=== PATIENT | female | born 1955 | race Caucasian/White ===

== ENCOUNTER 2016-08-22 08:53 | Day surgery (SDC) | payer MEDICAID, MEDICARE ==
[~2016-08-22 08:53] MED LIST: ALPRAZolam 0.25 MG TAB PO PRN; ASPIRIN 325 MG TAB PO STA; SODIUM CHLORIDE 0.9% 1,000 ML in EMPTY BAG 1 BAG IV ONE
[2016-08-22] MEDS ORDERED: ASPIRIN 81 MG CHEW ONE (09:13)
[2016-08-22] MEDS ORDERED: ASPIRIN 81 MG CHEW PO ONE (09:22)
[2016-08-22] MEDS ORDERED: ALPRAZolam 0.25 MG TAB PO ONE (09:26)
[2016-08-22 10:07] LABS: Basophils # (A) 0.1 k/uL (0-0.2); Basophils % (A) 1 %; CH 31.8; CHCM 32.5; Eosinophils # (A) 0.2 k/uL (0-0.7); Eosinophils % (A) 2 %; HCT 44.1 % (34.0-46.0); HGB 14.4 gm/dL (11.4-16.0); Luc # (Auto) 0.18; Luc % (Auto) 2; Lymphocytes % (A) 20 %; MCH 32.1 pg (25.0-35.0); MCHC 32.7 g/dL (31.0-37.0); MCV 98.3 fL (80.0-100.0); Mean Platelet Volume 7.8; Monocytes # (A) 0.5 k/uL (0-1.0); Monocytes % (A) 4 %; Neutrophils # (A) 7.3 k/uL (1.3-7.7); Neutrophils % (A) 71 %; RBC 4.48 m/uL (3.80-5.40); RDW 12.8 % (11.5-15.5); WBC 10.2 k/uL (3.8-10.6); WBC (Perox) 10.19
[2016-08-22 10:15] LABS: INR 1.1 (<1.1)
[2016-08-22 10:23] LABS: Anion Gap 11 mmol/L; Blood Urea Nitrogen 17 mg/dL (7-17); Calcium 9.8 mg/dL (8.4-10.2); Carbon Dioxide 26 mmol/L (22-30); Chloride 103 mmol/L (98-107); Glucose 107 mg/dL (74-99); Non-African American GFR(MDRD) >60 (>60 ml/min/1.73 sqM); Potassium 5.1 mmol/L (3.5-5.1); Sodium 140 mmol/L (137-145)
[2016-08-22] MEDS ORDERED: IV FLUID CONTINUATION 1,000 ML IV ONE (11:07)
[2016-08-22] MEDS ORDERED: MIDAZOLAM 2 MG/2 ML VIAL IV ONE (11:12)
[2016-08-22] MEDS ORDERED: LIDOCAINE 2% INJ 20 MG/ML SQ ONE (11:14)
[2016-08-22] MEDS: LIDOCAINE 2% INJ 20 MG/ML SQ ONE ×2 (11:16→11:27)
[2016-08-22] MEDS ORDERED: VERAPAMIL SYRINGE (5 MG/10 ML) INTRAARTER ONE (11:17)
[2016-08-22] MEDS ORDERED: HEPARIN SODIUM 1,000 UNIT/ML VIAL IV ONE (11:18)
[2016-08-22] MEDS ORDERED: IODIXANOL 320 MG/ML 100 ML INTRAARTER ONE (11:38)
[2016-08-22] MEDS ORDERED: SODIUM CHLORIDE 0.9% 1,000 ML IV SCH (11:45)
[2016-08-22 13:37] VITALS: RESP 16; TEMP 97.9
[2016-08-22] MEDS ORDERED: HYDROcodone/APAP 7.5-325MG 1 EACH TAB PO PRN (14:27)
[2016-08-22 15:52] VITALS: BMI 30.1
[2016-08-22 17:11] VITALS: BP 126/67; PULSE 74
--- NOTE | 2016-08-23 05:39 | PCN ---
DATE OF PROCEDURE: 08/22/2016 PERIPHERAL ANGIOGRAM PERFORMING PHYSICIAN: Nathan Baum MD, fish stringer assembler. PROCEDURE PERFORMED: 1. An abdominal aortogram. 2. Bilateral lower extremity runoff. INDICATION: This is a very pleasant 60-year-old female patient who was referred to see me by Dr. Tai. She was struggling with critical limb ischemia of the left foot. She was brought today to undergo an abdominal aortogram and bilateral lower extremity runoff. Approach: 1. Right radial artery. 2. Right common femoral artery. COMPLICATIONS: None. LEVEL OF SEDATION: Moderate. PROCEDURE DESCRIPTION: After obtaining an informed consent, the patient was brought to the cardiac lab assistant. Initially, I accessed the right radial artery, and I placed a 5-Tongan sheath in the right radial artery. Subsequently, I gave the patient 2 mg of verapamil IA and 3000 units of heparin IV. I was unable to advance my wire to the ascending aorta, so I aborted the procedure and I accessed the right common femoral artery. I placed a 5-Tongan sheath in the right common femoral artery. Subsequently, I did an abdominal aortogram and bilateral lower extremity runoff using 5-Tongan pigtail catheter which was initially placed at the level of the renal arteries and it was pulled into above the bifurcation of the aorta to right and left common iliac arteries. The procedure was completed without any complication. SELECTIVE PERIPHERAL ANGIOGRAM: The abdominal aorta seems to be calcified with mild disease only. It bifurcates into right and left common iliac arteries. COMMON ILIAC ARTERIES: The right and left common iliac arteries appear to have mild disease only. INTERNAL ILIAC ARTERIES: The right and left internal iliac arteries appear to have mild disease only. THE EXTERNAL ILIAC ARTERIES: The right and left external iliac arteries appear to have mild disease only. COMMON FEMORAL ARTERIES: The right and left common femoral arteries appeared to have mild disease only. PROFUNDA: The right and left profunda appear to have mild disease only. SFA: The right SFA appeared to have mild disease only and the left SFA appeared to have a lesion in the range of 70% in the midportion. POPLITEAL: The right and left popliteal appeared to be angiographically normal. BELOW THE KNEE: There are 3 vessels runoff below the knee bilaterally. CONCLUSION: 1. Mild aortoiliac disease. 2. Severe disease involving the left SFA. POSTPROCEDURE MANAGEMENT: The patient will be scheduled to undergo a SKIDWAY MAN of the left SFA.
--- NOTE | 2016-08-23 05:42 | LTR ---
August 22, 2016 CARLOS HOOKS DPM RE: Dom Polanco Dear Javed: Ms. Dom Polanco underwent a peripheral angiogram and that showed severe disease involving her left SFA. She will be scheduled to undergo an atherectomy and balloon angioplasty of the left SFA. Thank you for allowing me to participate in her care. Sincerely, KIANA LOPEZ MD
--- NOTE | 2016-08-23 16:08 | IR ---
Fluoroscopy HISTORY: Pain 7.3 minutes fluoroscopy time supplied to the referring clinician. 135 intraoperative C-arm images do cument the procedure. See dictated report from cardiology.
== END 2016-08-22 18:40 | disposition home or self-care (01) ==
LOC: CATHCVL 08:53 → 3OBS 11:37 → CATHCVL 18:40
PROVIDERS: ATTEND Internal Medicine Interventional Cardiology
DX: I73.9 Peripheral vascular disease, unspecified (principal); I70.0 Atherosclerosis of aorta
CPT/HCPCS: 36200; 75625; 75716; 80048; 85025; 85610; C1894 ×2; C1769 ×2; J2001; J2250; Q9967; J1644

== ENCOUNTER 2016-09-09 09:30 | Day surgery (SDC) | payer MEDICARE ==
[2016-09-07 13:26] VITALS: BMI 27.9
[~2016-09-09 09:30] MED LIST changes: -ALPRAZolam 0.25 MG TAB PO PRN; +ASPIRIN 325 MG TAB PO SCH; -ASPIRIN 325 MG TAB PO STA; -SODIUM CHLORIDE 0.9% 1,000 ML in EMPTY BAG 1 BAG IV ONE
[2016-09-09] MEDS: ALPRAZolam 0.25 MG TAB PO PRN ×2 (09:56→09:59)
[2016-09-09] MEDS ORDERED: SODIUM CHLORIDE 0.9% 1,000 ML IV ONE (10:00)
[2016-09-09] MEDS: HYDROcodone/APAP 7.5-325MG 1 EACH TAB PO PRN ×3 (11:45→23:11)
[2016-09-09] MEDS ORDERED: MIDAZOLAM 2 MG/2 ML VIAL IVP ONE ×2 (12:03→12:20)
[2016-09-09] MEDS ORDERED: LIDOCAINE 2% INJ 20 MG/ML SQ ONE (12:08)
[2016-09-09] MEDS ORDERED: HEPARIN SODIUM 1,000 UNIT/ML VIAL IV ONE (12:09)
[2016-09-09] MEDS ORDERED: CLOPIDOGREL 75 MG TAB PO ONE (12:12)
[2016-09-09] MEDS: HYDROmorphone 2 MG/ML 1 ML SYRINGE IVP ONE ×2 (12:25→12:31)
[2016-09-09] MEDS: NITROGLYCERIN 1000MCG/10ML SYRINGE INTRAARTER ONE ×3 (12:26→12:36)
[2016-09-09] MEDS ORDERED: NITROGLYCERIN 1000MCG/10ML SYRINGE INTRAARTER ONE (12:26)
[2016-09-09] MEDS ORDERED: niCARdipine Syringe (1,000 mcg/10 mL) INTRACORON ONE (12:37)
[2016-09-09] MEDS ORDERED: IODIXANOL 320 MG/ML 100 ML INTRAARTER ONE (12:51)
[2016-09-09] MEDS ORDERED: SODIUM CHLORIDE 0.9% 1,000 ML IV SCH (13:00)
--- NOTE | 2016-09-09 14:39 | IR ---
EXAMINATION TYPE: IR sea captain femoral popliteal DATE OF EXAM: 09/09/2016 1:06 PM COMPARISON: NONE HISTORY: Peripheral vascular occlusive disease. Fluoroscopy was provided to the referring clinician. See dictated report from cardiology.
[2016-09-09] MEDS: SODIUM CHLORIDE 0.9% 1,000 ML IV SCH ×2 (16:56→17:04)
[2016-09-09] MEDS ORDERED: IBUPROFEN PO SCH (18:00)
[2016-09-09] MEDS ORDERED: HYDROCODONE PO SCH (18:00)
[2016-09-09] MEDS ORDERED: ATORVASTATIN 80 MG TAB PO SCH (21:00)
--- NOTE | 2016-09-09 22:19 | PTCA ---
DATE OF SERVICE: September 09, 2016 PERFORMING PHYSICIAN: Nathan Baum, 1st pressman on web press. PROCEDURE PERFORMED: 1. Selective left [id number] angiogram. 2. Selective left superficial femoral artery angiogram. 3. Selective right common femoral artery angiogram. 4. An atherectomy of the left superficial femoral artery using the TurboHawk device. 5. Successful balloon angioplasty of the left superficial femoral artery using 5.0 x 60-mm drug-coated balloon with a good angiographic result. INDICATION: This is a pleasant, 61-year-old female patient who was experiencing left leg discomfort consistent with claudication and she underwent a peripheral angiogram a few weeks ago and that showed severe left SFA disease. She was brought today to undergo a PORCELAIN ENAMEL REPAIRER of the left SFA. APPROACH: The right common femoral artery. COMPLICATIONS: None. LEVEL OF SEDATION: Moderate with a sedation length of about an hour. PROCEDURE DESCRIPTION: After obtaining informed consent, the patient was brought to the cardiac tin can laborer. The right common femoral artery was cannulated using micropuncture technique. The micropuncture wire passed easily. Then I placed an 11 cm 6 Qatari sheath in the right common femoral artery. After that, anticoagulation was initiated using heparin and the patient was given 8000 units of heparin IV. After that, I did select the left SFA using an 0.035 advantage wire with a 5 Qatari rim catheter. Subsequently, I did exchange my 11 cm 6 Qatari sheath into 55 cm 6 Qatari sheath over the Advantage wire. The tip of the long sheath was positioned in the left common femoral artery. I did selective left ngrli-ist-lfad angiogram and selective left SFA angiogram. After that, I exchanged my 0.035 advantage wire into 0.014 Ironman using an 0.035 CXI catheter. After that, I did multiple runs of directional atherectomy using the TurboHawk device. I was able to extract a significant amount of plaque from the left SFA. After that, I did balloon angioplasty initially using 4.0 x 40 and then I used 5.0 x 60 mm drug-coated balloon which was In. Pact, where the balloon was inflated under 8 atmospheres for 3 minutes. The following angiogram showed an excellent angiographic result without perforation and without dissection with a good flow. After that, I did exchange my 55 cm 6 Qatari sheath into 11 cm 6 Qatari sheath over the advantage wire. I did after that selective right common femoral artery angiogram. The procedure was completed without any complication. By the end of the procedure I was able to feel good posterior tibial pulse. POSTPROCEDURE MANAGEMENT: 1. Dual antiplatelet therapy. 2. Risk factor modification. 3. Follow up with the patient.
[2016-09-10] MEDS: HYDROcodone/APAP 7.5-325MG 1 EACH TAB PO PRN (05:37)
[2016-09-10 06:38] LABS: Basophils # (A) 0.1 k/uL (0-0.2); Basophils % (A) 0 %; CH 31.5; CHCM 32.9; Eosinophils # (A) 0.3 k/uL (0-0.7); Eosinophils % (A) 2 %; HCT 40.9 % (34.0-46.0); HDW 2.39; HGB 13.6 gm/dL (11.4-16.0); Luc # (Auto) 0.11; Luc % (Auto) 1; Lymphocytes % (A) 8 %; MCHC 33.2 g/dL (31.0-37.0); MCV 96.2 fL (80.0-100.0); Mean Platelet Volume 7.4; Monocytes # (A) 0.5 k/uL (0-1.0); Monocytes % (A) 4 %; Neutrophils # (A) 11.4 k/uL (1.3-7.7); Neutrophils % (A) 85 %; RBC 4.25 m/uL (3.80-5.40); RDW 12.7 % (11.5-15.5); WBC 13.4 k/uL (3.8-10.6); WBC (Perox) 14.05
[2016-09-10] MEDS: SODIUM CHLORIDE 0.9% 1,000 ML IV SCH (06:38)
[2016-09-10 06:50] LABS: Anion Gap 8 mmol/L; Blood Urea Nitrogen 15 mg/dL (7-17); Calcium 9.7 mg/dL (8.4-10.2); Carbon Dioxide 26 mmol/L (22-30); Chloride 105 mmol/L (98-107); Glucose 104 mg/dL (74-99); Non-African American GFR(MDRD) >60 (>60 ml/min/1.73 sqM); Potassium 4.6 mmol/L (3.5-5.1); Sodium 139 mmol/L (137-145)
[2016-09-10 08:38] VITALS: BP 125/69; PULSE 71; RESP 18; TEMP 98.1
[2016-09-10] MEDS ORDERED: amLODIPine 10 MG TAB PO SCH (09:00)
[2016-09-10] MEDS ORDERED: ASPIRIN 325 MG TAB PO SCH (09:00)
[2016-09-10] MEDS ORDERED: PROPRANOLOL LA 80 MG CAP.SA.24H PO SCH (09:00)
[2016-09-10] MEDS ORDERED: CLOPIDOGREL 75 MG TAB PO SCH (09:00)
[2016-09-10] MEDS ORDERED: LISINOPRIL 20 MG TAB PO SCH (09:00)
--- NOTE | 2016-09-10 09:08 | P.PN ---
Subjective Principal diagnosis: Arthrectomy and successful balloon angioplasty of the left superficial femoral artery Discharge Note This is a pleasant 61-year-old female who was experiencing left leg discomfort consistent with claudication, she was brought to the hospital by Dr. Mesa, she underwent arthrectomy of the left superficial femoral artery and successful balloon angioplasty of the left superficial femoral artery. Patient was seen and examined this morning, feels well, denies any discomfort, she has been up walking without any difficulty. Blood pressure 124/70 with a heart rate in the 70s. Objective - Vital Signs Vital signs: Vital Signs Temp 98.1 F 09/10/16 08:00 Pulse 71 09/10/16 08:00 Resp 18 09/10/16 08:00 BP 125/69 09/10/16 08:00 Pulse Ox 98 09/10/16 08:00 Intake & Output 09/09/16 09/10/16 09/10/16 18:59 06:59 18:59 Intake Total 500 1056 240 Balance 500 1056 240 Weight 88.45 kg 88.6 kg Intake: IV 500 1056 Sodium Chloride 0.9% 1, 100 1056 000 ml @ 100 mls/hr IV . Q10H TAMIKO Rx#:[id number] Oral 240 Other: # Voids 1 1 1 - Exam PHYSICAL EXAMINATION: HEENT: Head is atraumatic, normocephalic. Pupils equal, round. Neck is supple. There is no elevated jugular venous pressure. HEART EXAMINATION: Heart S1, S2 normal. No murmur or gallop heard. CHEST EXAMINATION: Lungs are clear to auscultation and precussion. No chest wall tenderness is noted on palpation or with deep breathing. ABDOMEN: Soft, nontender. Bowel sounds are heard. No organomegaly noted. Right groin soft, no evidence of any hematoma. EXTREMITIES: 1+ peripheral pulses with no evidence of peripheral edema and no calf tenderness noted. NEUROLOGIC patient is awake, alert and oriented -3. . - Labs CBC & Chem 7: 09/10/16 06:11 09/10/16 06:11 Labs: Abnormal Lab Results - Last 24 Hours (Table) 09/10/16 09/10/16 Range/Units 06:11 06:11 WBC 13.4 H (3.8-10.6) k/uL Neutrophils # 11.4 H (1.3-7.7) k/uL Glucose 104 H (74-99) mg/dL Assessment and Plan Plan: Assessment and plan #1 status post arthrectomy and successful balloon angioplasty of the left superficial femoral artery #2 HTN #3 hyperlipidemia #4 nicotine dependence, patient reports that she quit smoking earlier this month. PLAN Patient may be able to be discharged home today. We will make her a follow-up appointment in the office with Dr. Mesa post discharge. She will be discharged home on aspirin 325 mg daily, 80 mg of Lipitor daily, Plavix 75 mg daily, lisinopril 20 mg daily, propranolol LA 160 mg daily, and Norvasc 10 mg daily. The patient has been advised regarding the importance of nicotine cessation. DNP note has been reviewed, I agree with a documented findings and plan of care. Patient was seen and examined.
== END 2016-09-10 09:49 | disposition home or self-care (01) ==
LOC: CATHCVL 09:30 → 6SEL 15:16 → CATHCVL 09-10 09:49
PROVIDERS: ATTEND Internal Medicine Interventional Cardiology
DX: I77.9 Disorder of arteries and arterioles, unspecified (principal); I99.8 Other disorder of circulatory system; I73.9 Peripheral vascular disease, unspecified; I10 Essential (primary) hypertension; E78.5 Hyperlipidemia, unspecified; R01.1 Cardiac murmur, unspecified; Z82.49 Family history of ischemic heart disease and other diseases of the circulatory system; Z79.82 Long term (current) use of aspirin; Z79.891 Long term (current) use of opiate analgesic; Z79.899 Other long term (current) drug therapy; Z87.891 Personal history of nicotine dependence; Z88.0 Allergy status to penicillin
CPT/HCPCS: 37225; 85347; 80048; 85025; 99152; 99153 ×2; C1769 ×5; C1894 ×2; C1725; C1714; C2623; J2001; J2250; J1170; Q9967; J1644

== ENCOUNTER → 2020-11-06 | Outpatient (CLI) | payer MEDICARE ==
--- NOTE | 2020-11-06 16:47 | CT ---
EXAMINATION TYPE: CT angio thor/abd pel aorta DATE OF EXAM: 11/06/2020 INDICATION: RV compression, rule out mass. COMPARISON: None CT DLP: 1389 mGycm CONTRAST: without and with IV Contrast, patient injected with 100 mL of Isovue 370. TECHNIQUE: Axial images at 5 mm thick sections. Reconstructed images in the coronal plane. Delayed images through the kidneys. 3-D reconstructed images performed on a separate computerized technologi st reviewed through the aorta and iliac vessels. FINDINGS: Pectus excavatum is present. This has mass effect on the right lateral ventricle. The left thoracic cavity is somewhat smaller than on the right. CTA aorta: The aorta tapers normally through its visualized course. There is a three-vessel arch. The left main renal artery appears somewhat small. The right main pulmonary artery appears normal. Elizabeth c axis and superior mesenteric artery take offs appear normal. Iliac vessels are patent. No dissectio ns are evident. CT CHEST: Portion of the thyroid visualized is normal. No suspicious lung nodules or focal infiltrates are present. No enlarged mediastinal or hilar adenopathy is evident. The ascending aorta diameter at the level of the main pulmonary artery is 3.5 cm. The main pulmonary artery diameter at the bifurcation is 2.[address] ABDOMEN: Liver: Normal Spleen: Normal Pancreas: Normal Adrenal glands: The adrenal glands are normal. Gallbladder: Normal Kidneys: No masses are evident. There is a large left hydronephrosis and hydroureter. This extends to the left hemipelvis where there is an obstructing 0.9 x 2.1 cm distal left ureteral stone. Aorta: Vascular calcification is within the aorta. Inferior vena cava: Normal. CT PELVIS: Loops of bowel within the abdomen and pelvis are normal. This study is performed without oral con trast limiting our evaluation. Appendix: Not identified. No dilated tubular structure or inflammatory changes are evident. Urinary bladder: Normal. Genitourinary structures: Uterus is normal. Adnexal regions are clear. Osseous structures: No suspicious lytic or sclerotic lesions. IMPRESSIONS: 1. Obstructing distal left ureteral stone measuring 0.9 x 2.1 cm causing marked hydronephrosis and hy droureter. 2. Thoracic and Abdominal aorta as visualized appears normal. 3. Pectus excavatum. This has mass effect on the right lateral ventricle
== END | disposition home or self-care (01) ==
LOC: RADCTMAIN 14:17
PROVIDERS: ATTEND Internal Medicine Interventional Cardiology
DX: N13.2 Hydronephrosis with renal and ureteral calculous obstruction (principal); Q67.6 Pectus excavatum
CPT/HCPCS: 82565; 84520; 71275; 36415; 74174; Q9967

== ENCOUNTER → 2023-07-19 | Outpatient (CLI) | payer MEDICARE ==
[2023-07-19 17:31] LABS: Basophils # (A) 0.08 X 10*3/uL (0.00-0.10); Basophils % (A) 0.8 %; Eosinophils # (A) 0.26 X 10*3/uL (0.04-0.35); Eosinophils % (A) 2.6 %; HCT 45.3 % (37.2-46.3); HGB 14.6 g/dL (12.0-15.0); Lymphocytes # (A) 1.58 X 10*3/uL (0.90-5.00); Lymphocytes % (A) 15.8 %; MCH 32.4 pg (27.0-32.0); MCHC 32.2 g/dL (32.0-37.0); MCV 100.4 FL (80.0-97.0); Mean Platelet Volume 11.9 FL (9.5-12.2); Monocytes # (A) 0.73 X 10*3/uL (0.20-1.00); Monocytes % (A) 7.3 %; NRBC Per 100 WBC 0 X 10*3/uL (0.00-0.01); Neutrophils # (A) 7.31 X 10*3/uL (1.80-7.70); Neutrophils % (A) 73.3 %; Platelet Count 255 X 10*3/uL (140-440); RBC 4.51 X 10*6/uL (4.10-5.20); RDW 13.6 % (11.5-14.5); WBC 9.98 X 10*3/uL (4.50-10.00)
[2023-07-19 18:20] LABS: ALT 29 U/L (8-44); AST 33 U/L (13-35); Albumin 4.5 g/dL (3.8-4.9); Albumin/Globulin Ratio 1.67 Ratio (1.60-3.17); Alkaline Phosphatase 94 U/L (41-126); BUN/Creat Ratio 13.78 Ratio (12.00-20.00); Blood Urea Nitrogen 12.4 mg/dL (9.0-27.0); Calcium 9.9 mg/dL (8.7-10.3); Carbon Dioxide 26.4 mmol/L (21.6-31.8); Chloride 101 mmol/L (96-109); Globulin 2.7 g/dL (1.6-3.3); Glucose 91 mg/dL (70-110); Potassium 4.3 mmol/L (3.5-5.5); Sodium 139 mmol/L (135-145); T4, Free (Free Thyroxine) 1.35 ng/dL (0.80-1.80); Total Bilirubin 0.5 mg/dL (0.3-1.2); Total Protein 7.2 g/dL (6.2-8.2)
== END | disposition home or self-care (01) ==
LOC: LABWHC1 09:10
PROVIDERS: ATTEND Family Medicine
DX: R63.4 Abnormal weight loss (principal)
CPT/HCPCS: 36415; 80053; 83036; 84439; 84443; 84481; 85025

== ENCOUNTER → 2024-06-07 | Outpatient (CLI) | payer MEDICARE ==
[2024-06-07 20:58] LABS: ALT 27 U/L (8-44); AST 27 U/L (13-35); Albumin 4.5 g/dL (3.8-4.9); Albumin/Globulin Ratio 1.55 Ratio (1.60-3.17); Alkaline Phosphatase 102 U/L (41-126); Amylase 54 U/L (23-121); BUN/Creat Ratio 17.18 Ratio (12.00-20.00); Blood Urea Nitrogen 18.9 mg/dL (9.0-27.0); Calcium 9.6 mg/dL (8.7-10.3); Carbon Dioxide 24.9 mmol/L (21.6-31.8); Chloride 105 mmol/L (96-109); Globulin 2.9 g/dL (1.6-3.3); Glucose 107 mg/dL (70-110); Lipase 42 U/L (14-63); Potassium 4.4 mmol/L (3.5-5.5); Sodium 141 mmol/L (135-145); T4, Free (Free Thyroxine) 1.38 ng/dL (0.80-1.80); Total Bilirubin 0.4 mg/dL (0.3-1.2); Total Protein 7.4 g/dL (6.2-8.2)
[2024-06-07 21:33] LABS: Basophils # (A) 0.12 X 10*3/uL (0.00-0.10); Basophils % (A) 1.2 %; Eosinophils # (A) 0.33 X 10*3/uL (0.04-0.35); Eosinophils % (A) 3.3 %; HCT 42.8 % (37.2-46.3); HGB 13.5 g/dL (12.0-15.0); Lymphocytes # (A) 1.86 X 10*3/uL (0.90-5.00); Lymphocytes % (A) 18.7 %; MCH 32.3 pg (27.0-32.0); MCHC 31.5 g/dL (32.0-37.0); MCV 102.4 FL (80.0-97.0); Mean Platelet Volume 10.9 FL (9.5-12.2); Monocytes # (A) 0.83 X 10*3/uL (0.20-1.00); Monocytes % (A) 8.4 %; NRBC Per 100 WBC 0 X 10*3/uL (0.00-0.01); Neutrophils # (A) 6.77 X 10*3/uL (1.80-7.70); Neutrophils % (A) 68.1 %; Platelet Count 269 X 10*3/uL (140-440); RBC 4.18 X 10*6/uL (4.10-5.20); WBC 9.94 X 10*3/uL (4.50-10.00)
== END | disposition home or self-care (01) ==
LOC: LABWHC1 12:38
PROVIDERS: ATTEND Family Medicine
DX: R63.0 Anorexia (principal); R63.4 Abnormal weight loss
CPT/HCPCS: 36415; 80053; 82150; 83690; 84439; 84443; 85025

== ENCOUNTER 2024-09-16 19:06 | Inpatient (IN) | payer MEDICARE ==
--- NOTE | 2024-09-16 19:44 | ED ---
Weakness HPI - General Chief complaint: Weakness Stated complaint: Weakness Time Seen by Provider: 09/16/24 19:22 Source: patient, EMS, RN notes reviewed Mode of arrival: EMS Limitations: altered mental status - History of Present Illness Initial comments: This is a 69-year-old female with history including hypertension and nephrolithiasis presenting via EMS for weakness x 2 days. Patient states she has had associated chest tightness (3/10), dyspnea, N/V/D, headache and positional dizziness. Endorses use of Aleve with no relief. Patient endorses mother and father having history of AMI but denies personal history. Patient is prescribed Plavix and atorvastatin. Denies fever, chills, diaphoresis, abdominal pain, hematemesis, hematochezia, melena, urinary symptoms. MD Complaint: generalized weakness Onset/Timin -: days(s) Associated Symptoms: chest pain, headaches, nausea/vomiting - Related Data Home Medications Medication Instructions Recorded Confirmed Aspirin 81 mg PO DAILY 08/22/16 09/09/16 HYDROcodone/IBUPROFEN 7.5-200 1 tab PO Q6HR 08/22/16 09/09/16 [Vicoprofen 7.5-200 mg] Propranolol HCl [Inderal LA] 160 mg PO DAILY 08/22/16 09/09/16 amLODIPine BESYLATE/BENAZEPRIL 1 cap PO DAILY 08/22/16 09/09/16 [Lotrel 10-20 MG] Previous Rx's Medication Instructions Recorded Atorvastatin [Lipitor] 80 mg PO HS #30 tab 09/10/16 Clopidogrel [Plavix] 75 mg PO DAILY #30 tab 09/10/16 Allergies Allergy/AdvReac Type Severity Reaction Status Date / Time Penicillins Allergy Dyspnea. Verified 09/07/16 12:57 THROAT SWELLING Review of Systems ROS Statement: Those systems with pertinent positive or pertinent negative responses have been documented in the HPI. ROS Other: All systems not noted in ROS Statement are negative. Past Medical History Past Medical History: Hypertension, Vascular Disorder Additional Past Medical History / Comment(s): CHRONIC MIGRAINES, chronic back pain, hx. fx. knee cap 2014 that affects her gait & back, hx. R kidney stones, hematuria, UTIs, urinary incontinence. History of Any Multi-Drug Resistant Organisms: None Reported Past Surgical History: Cholecystectomy, Orthopedic Surgery, Tonsillectomy Additional Past Surgical History / Comment(s): 12/09/14 Patella tendon repair and removal inferior patellar fragments. ORIF LEFT WRIST, LITHOTRIPSY & NEPHROLITHOTOMY, 2012 stone removal from ureter, recent aortogram Past Anesthesia/Blood Transfusion Reactions: No Reported Reaction Past Psychological History: No Psychological Hx Reported Smoking Status: Current every day smoker Past Alcohol Use History: None Reported Past Drug Use History: Marijuana - Past Family History Mother Family Medical History: Coronary Artery Disease (CAD) General Exam Limitations: altered mental status General appearance: alert, lethargic, in distress Head exam: Present: atraumatic, normocephalic, normal inspection Eye exam: Present: normal appearance, PERRL, EOMI. Absent: scleral icterus, conjunctival injection, periorbital swelling ENT exam: Present: normal exam, mucous membranes moist Neck exam: Present: normal inspection. Absent: tenderness, meningismus, lymphadenopathy Respiratory exam: Present: normal lung sounds bilaterally. Absent: respiratory distress, wheezes, rales, rhonchi, stridor, accessory muscle use, decreased breath sounds, prolonged expiratory Cardiovascular Exam: Present: regular rate, normal rhythm, normal heart sounds. Absent: systolic murmur, diastolic murmur, rubs, gallop, clicks GI/Abdominal exam: Present: soft, normal bowel sounds. Absent: distended, tenderness, guarding, rebound, rigid Extremities exam: Present: normal inspection, full ROM, normal capillary refill. Absent: tenderness, pedal edema, joint swelling, calf tenderness Back exam: Present: normal inspection Neurological exam: Present: alert, oriented X3, CN II-XII intact Psychiatric exam: Present: normal affect, normal mood Skin exam: Present: warm, dry, intact, normal color. Absent: rash Course Vital Signs 09/16/24 09/16/24 19:08 20:21 Temperature 97.2 F L 97.8 F Pulse Rate 84 101 H Respiratory 18 18 Rate Blood Pressure 137/104 131/71 O2 Sat by Pulse 97 99 Oximetry Medical Decision Making - Medical Decision Making Was pt. sent in by a medical professional or institution (, PA, POLYETHYLENE COMBINER, urgent care, hospital, or long term...) When possible be specific @ -No Did you speak to anyone other than the patient for history (EMS, parent, family, police, friend...)? What history was obtained from this source @ -No Did you review nursing and triage notes (agree or disagree)? Why? @ -I reviewed and agree with nursing and triage notes Were old charts reviewed (outside hosp., previous admission, EMS record, old EKG, old radiological studies, urgent care reports/EKG's, long term records)? Report findings @ -No old charts were reviewed Differential Diagnosis (chest pain, altered mental status, abdominal pain women, abdominal pain men, vaginal bleeding, weakness, fever, dyspnea, syncope, headache, dizziness, GI bleed, back pain, seizure, CVA, palpatations, mental health, musculoskeletal)? @ -Differential Chest Pain: Stable Angina, Unstable Angina, STEMI, NSTEMI Aortic Dissection, Pneumothorax, Musculoskeletal, Esophageal Spasm GERD, Cholecystitis, Pancreatitis, Zoster, this is not meant to be an all-inclusive list. Differential Weakness: Hypoglycemia, shock, sepsis, hyponatremia, anemia, infection, UT, ETOH, adverse medicine reaction, overdose, stroke, this is not meant to be an all-inclusive list. EKG interpreted by me (3pts min.). @ -Sinus tachycardia with LAD and right ventricular conduction delay. No ST deviation or T wave inversion. Ventricular rate 101 bpm, RANCHO 118 ms, QRS 89 ms, QTc 441 ms. X-rays interpreted by me (1pt min.). @ -CXR shows small right pleural effusion and COPD changes. CT interpreted by me (1pt min.). @ -Abdomen/pelvic CT shows 1.2 cm obstructing distal left ureteral stone along with several smaller stones within the ureter. Associated moderate left hydronephrosis and hydroureter. Multiple bilateral nonobstructing renal stones also noted. U/S interpreted by me (1pt. min.). @ -None done What testing was considered but not performed or refused? (CT, X-rays, U/S, labs)? Why? @ -None What meds were considered but not given or refused? Why? @ -None Did you discuss the management of the patient with other professionals (professionals i.e. , PA, POLYETHYLENE COMBINER, lab, RT, psych nurse, nursing home social worker, lens polisher, teacher, airfield engineer officer, sample case porter)? Give summary @ -Sound contacted for patient admission for non-STEMI and KELLI along with obstructing ureterolithiasis. Was smoking cessation discussed for >3mins.? @ -No Was critical care preformed (if so, how long)? @ -No Were there social determinants of health that impacted care today? How? (Homelessness, low income, unemployed, alcoholism, drug addiction, transportation, low edu. Level, literacy, decrease access to med. care, [place] [facility], rehab)? @ -No Was there de-escalation of care discussed even if they declined (Discuss DNR or withdrawal of care, Hospice)? DNR status @ -No What co-morbidities impacted this encounter? (DM, HTN, Smoking, COPD, CAD, Cancer, CVA, ARF, Chemo, Hep., AIDS, mental health diagnosis, sleep apnea, morbid obesity)? @ -Hypertension Was patient admitted / discharged? Hospital course, mention meds given and route, prescriptions, significant lab abnormalities, going to OR and other pertinent info. @ -Initial troponin 1.700. Remaining lab work shows leukocytosis 26.6 with left shift. KELLI noted with creatinine going from 1.1 (06/07/2024) to 2.12 today. Hyperglycemia 132, hypercalcemia 11.1, slightly elevated LFTs and total protein. Cepheid test negative. UA is still pending. CXR shows small right pleural effusion and COPD changes. Abdomen/pelvic CT shows 1.2 cm obstructing distal left ureteral stone along with several smaller stones within the ureter. Associated moderate left hydronephrosis and hydroureter. Multiple bilateral nonobstructing renal stones also noted. Patient initially provided IV normal saline and Zofran. After return of results, patient provided IV low intensity heparin, p.o. chewable aspirin and atorvastatin. IV Rocephin also provided. Sound contacted for patient admission for non-STEMI and KELLI along with obstructing ureterolithiasis. Discussed patient with Dr. Allison. Undiagnosed new problem with uncertain prognosis? @ -NSTEMI, KELLI Drug Therapy requiring intensive monitoring for toxicity (Heparin, Nitro, Insulin, Cardizem)? @ -No Were any procedures done? @ -No Diagnosis/symptom? @ -NSTEMI, KELLI, obstructing ureterolithiasis Acute, or Chronic, or Acute on Chronic? @ -Acute Uncomplicated (without systemic symptoms) or Complicated (systemic symptoms)? @ -Complicated Side effects of treatment? @ -No Exacerbation, Progression, or Severe Exacerbation? @ -No Poses a threat to life or bodily function? How? (Chest pain, USA, UT, pneumonia, PE, COPD, DKA, ARF, appy, cholecystitis, CVA, Diverticulitis, Homicidal, Suicidal, threat to staff... and all critical care pts) @ -NSTEMI, KELLI - Lab Data Result diagrams: 09/16/24 19:59 09/16/24 19:59 Lab Results 09/16/24 09/16/24 09/16/24 Range/Units 19:59 19:59 19:59 WBC 26.60 H (4.50-10.00) 10*3/uL RBC 5.71 H (4.10-5.20) 10*6/uL Hgb 18.9 H (12.0-15.0) g/dL Hct 52.9 H (37.2-46.3) % MCV 92.6 (80.0-97.0) fL MCH 33.1 H (27.0-32.0) pg MCHC 35.7 (32.0-37.0) g/dL Plt Count 357 (140-440) 10*3/uL MPV 10.8 (9.5-12.2) fL Immature Gran % (Auto) 0.8 % Neutrophils % 82.8 % Lymphocytes % 9.1 % Monocytes % 7.1 % Eosinophils % 0.0 % Basophils % 0.2 % Immature Gran # 0.20 H (0.00-0.04) 10*3/uL Neutrophils # 22.03 H (1.80-7.70) 10*3/uL Lymphocytes # 2.41 (0.90-5.00) 10*3/uL Monocytes # 1.89 H (0.20-1.00) 10*3/uL Eosinophils # 0.01 L (0.04-0.35) 10*3/uL Basophils # 0.06 (0.00-0.10) 10*3/uL PT 11.9 (10.0-12.5) sec INR 1.1 (<1.2) APTT 22.7 (22.0-30.0) sec Sodium 138 (137-145) mmol/L Potassium 4.0 (3.5-5.1) mmol/L Chloride 98 (98-107) mmol/L Carbon Dioxide 20 L (22-30) mmol/L Anion Gap 20 mmol/L BUN 41 H (7-17) mg/dL Creatinine 2.12 H (0.52-1.04) mg/dL Est GFR (CKD-EPI)AfAm 27 (>60 ml/min/1.73 sqM) Est GFR (CKD-EPI)NonAf 23 (>60 ml/min/1.73 sqM) Glucose 132 H (74-99) mg/dL POC Glucose (mg/dL) (70-110) mg/dL POC Glu Home Health Travel Ot ID Plasma Lactic Acid Renato (0.7-2.0) mmol/L Calcium 11.1 H (8.4-10.2) mg/dL Phosphorus 3.3 (2.5-4.5) mg/dL Magnesium 2.2 (1.6-2.3) mg/dL Total Bilirubin 1.6 H (0.2-1.3) mg/dL AST 75 H (14-36) U/L ALT 40 H (4-34) U/L Alkaline Phosphatase 133 H (38-126) U/L Creatine Kinase (30-135) U/L Troponin I (0.000-0.034) ng/mL Total Protein 8.9 H (6.3-8.2) g/dL Albumin 5.0 (3.5-5.0) g/dL Influenza Type A (PCR) (Not Detectd) Influenza Type B (PCR) (Not Detectd) RSV (PCR) (Not Detectd) SARS-CoV-2 (PCR) (Not Detectd) 09/16/24 09/16/24 09/16/24 Range/Units 19:59 21:12 21:12 WBC (4.50-10.00) 10*3/uL RBC (4.10-5.20) 10*6/uL Hgb (12.0-15.0) g/dL Hct (37.2-46.3) % MCV (80.0-97.0) fL MCH (27.0-32.0) pg MCHC (32.0-37.0) g/dL Plt Count (140-440) 10*3/uL MPV (9.5-12.2) fL Immature Gran % (Auto) % Neutrophils % % Lymphocytes % % Monocytes % % Eosinophils % % Basophils % % Immature Gran # (0.00-0.04) 10*3/uL Neutrophils # (1.80-7.70) 10*3/uL Lymphocytes # (0.90-5.00) 10*3/uL Monocytes # (0.20-1.00) 10*3/uL Eosinophils # (0.04-0.35) 10*3/uL Basophils # (0.00-0.10) 10*3/uL PT (10.0-12.5) sec INR (<1.2) APTT (22.0-30.0) sec Sodium (137-145) mmol/L Potassium (3.5-5.1) mmol/L Chloride (98-107) mmol/L Carbon Dioxide (22-30) mmol/L Anion Gap mmol/L BUN (7-17) mg/dL Creatinine (0.52-1.04) mg/dL Est GFR (CKD-EPI)AfAm (>60 ml/min/1.73 sqM) Est GFR (CKD-EPI)NonAf (>60 ml/min/1.73 sqM) Glucose (74-99) mg/dL POC Glucose (mg/dL) (70-110) mg/dL POC Glu Home Health Travel Ot ID Plasma Lactic Acid Renato 1.3 (0.7-2.0) mmol/L Calcium (8.4-10.2) mg/dL Phosphorus (2.5-4.5) mg/dL Magnesium (1.6-2.3) mg/dL Total Bilirubin (0.2-1.3) mg/dL AST (14-36) U/L ALT (4-34) U/L Alkaline Phosphatase (38-126) U/L Creatine Kinase 62 (30-135) U/L Troponin I 1.700 H* (0.000-0.034) ng/mL Total Protein (6.3-8.2) g/dL Albumin (3.5-5.0) g/dL Influenza Type A (PCR) (Not Detectd) Influenza Type B (PCR) (Not Detectd) RSV (PCR) (Not Detectd) SARS-CoV-2 (PCR) (Not Detectd) 09/16/24 09/16/24 Range/Units 22:31 22:35 WBC (4.50-10.00) 10*3/uL RBC (4.10-5.20) 10*6/uL Hgb (12.0-15.0) g/dL Hct (37.2-46.3) % MCV (80.0-97.0) fL MCH (27.0-32.0) pg MCHC (32.0-37.0) g/dL Plt Count (140-440) 10*3/uL MPV (9.5-12.2) fL Immature Gran % (Auto) % Neutrophils % % Lymphocytes % % Monocytes % % Eosinophils % % Basophils % % Immature Gran # (0.00-0.04) 10*3/uL Neutrophils # (1.80-7.70) 10*3/uL Lymphocytes # (0.90-5.00) 10*3/uL Monocytes # (0.20-1.00) 10*3/uL Eosinophils # (0.04-0.35) 10*3/uL Basophils # (0.00-0.10) 10*3/uL PT (10.0-12.5) sec INR (<1.2) APTT (22.0-30.0) sec Sodium (137-145) mmol/L Potassium (3.5-5.1) mmol/L Chloride (98-107) mmol/L Carbon Dioxide (22-30) mmol/L Anion Gap mmol/L BUN (7-17) mg/dL Creatinine (0.52-1.04) mg/dL Est GFR (CKD-EPI)AfAm (>60 ml/min/1.73 sqM) Est GFR (CKD-EPI)NonAf (>60 ml/min/1.73 sqM) Glucose (74-99) mg/dL POC Glucose (mg/dL) 119 H (70-110) mg/dL POC Glu Home Health Travel Ot ID [place] Plasma Lactic Acid Renato (0.7-2.0) mmol/L Calcium (8.4-10.2) mg/dL Phosphorus (2.5-4.5) mg/dL Magnesium (1.6-2.3) mg/dL Total Bilirubin (0.2-1.3) mg/dL AST (14-36) U/L ALT (4-34) U/L Alkaline Phosphatase (38-126) U/L Creatine Kinase (30-135) U/L Troponin I (0.000-0.034) ng/mL Total Protein (6.3-8.2) g/dL Albumin (3.5-5.0) g/dL Influenza Type A (PCR) Not Detected (Not Detectd) Influenza Type B (PCR) Not Detected (Not Detectd) RSV (PCR) Not Detected (Not Detectd) SARS-CoV-2 (PCR) Not Detected (Not Detectd) Disposition Clinical Impression: NSTEMI (non-ST elevated myocardial infarction), KELLI (acute kidney injury), Ureterolithiasis Disposition: ADMITTED IP TO THIS HOSP Condition: Fair Is patient prescribed a controlled substance at d/c from ED?: No Time of Disposition: 23:00 Decision Date: 09/16/24 Decision Time: 23:00
[2024-09-16 20:14] LABS: Basophils # (A) 0.06 10*3/uL (0.00-0.10); Basophils % (A) 0.2 %; Eosinophils # (A) 0.01 10*3/uL (0.04-0.35); HCT 52.9 % (37.2-46.3); HGB 18.9 g/dL (12.0-15.0); Lymphocytes # (A) 2.41 10*3/uL (0.90-5.00); Lymphocytes % (A) 9.1 %; MCH 33.1 pg (27.0-32.0); MCHC 35.7 g/dL (32.0-37.0); MCV 92.6 fL (80.0-97.0); Mean Platelet Volume 10.8 fL (9.5-12.2); Monocytes # (A) 1.89 10*3/uL (0.20-1.00); Monocytes % (A) 7.1 %; Neutrophils # (A) 22.03 10*3/uL (1.80-7.70); Neutrophils % (A) 82.8 %; Platelet Count 357 10*3/uL (140-440); RBC 5.71 10*6/uL (4.10-5.20); RDW 13.2 % (11.5-14.5)
[2024-09-16] MEDS: SODIUM CHLORIDE 0.9% 1,000 ML IV ONE (20:16)
[2024-09-16] MEDS: ONDANSETRON 4 MG/2 ML VIAL IVP STA (20:17)
[2024-09-16 20:25] LABS: INR 1.1 (<1.2); Partial Thromboplastin Time 22.7 sec (22.0-30.0); Prothrombin Time 11.9 sec (10.0-12.5)
[2024-09-16 20:27] LABS: ALT 40 U/L (4-34); African American GFR (CKD) 27 (>60 ml/min/1.73 sqM); Anion Gap 20 mmol/L; Blood Urea Nitrogen 41 mg/dL (7-17); Calcium 11.1 mg/dL (8.4-10.2); Carbon Dioxide 20 mmol/L (22-30); Chloride 98 mmol/L (98-107); Glucose 132 mg/dL (74-99); Non-African American GFR(CKD) 23 (>60 ml/min/1.73 sqM); Sodium 138 mmol/L (137-145); Total Bilirubin 1.6 mg/dL (0.2-1.3)
[2024-09-16 20:30] LABS: Magnesium 2.2 mg/dL (1.6-2.3); Phosphorus 3.3 mg/dL (2.5-4.5); Total Protein 8.9 g/dL (6.3-8.2)
[2024-09-16 20:31] LABS: AST 75 U/L (14-36); Alkaline Phosphatase 133 U/L (38-126)
[2024-09-16 22:36] LABS: Glucose,Whole Blood 119 mg/dL (70-110)
--- NOTE | 2024-09-16 22:45 | XR ---
EXAMINATION TYPE: XR chest 2V DATE OF EXAM: 09/16/2024 10:09 PM COMPARISON: 12/14/2011 CLINICAL INDICATION: Female, 69 years old with history of Weakness, TECHNIQUE: XR chest 2V view(s) obtained. FINDINGS: The heart size is normal. The pulmonary vasculature is normal. Small right pleural effusion is present.. Hyperinflation with flattening of the diaphragms present c ompatible with COPD IMPRESSION: 1. Small right pleural effusion 2. COPD [facility], Workstation: [facility], 09/16/2024 10:43 PM
--- NOTE | 2024-09-16 22:56 | CT ---
EXAMINATION TYPE: CT abdomen pelvis wo con DATE OF EXAM: 09/16/2024 10:24 PM COMPARISON: None. CLINICAL INDICATION: Female, 69 years old with history of Weakness, abnormal labs, pt bib ems for c/o increased in weakness , confusion cbg 142. x2 and half days TECHNIQUE: Axial images were obtained from above the diaphragm to the pubic rami in the axial plane a t 5 mm thick sections. Reconstructed images are reviewed on the computer in the coronal plane. CONTRAST: mL of . Study performed without Oral Contrast DLP: 354.8 mGycm, Automated exposure control for dose reduction was used. FINDINGS: Limited CT sections are obtained the lung bases. The lung bases are clear. CT ABDOMEN: Liver: Normal Spleen: Normal Pancreas: Normal Adrenal glands: The adrenal glands are normal. Gallbladder: Surgically absent Kidneys: No masses are evident. There is moderately prominent left hydronephrosis and prominent hydro ureter to the distal left hemipelvis. There is an obstructing 1.2 cm calcification within the ureter, additional smaller ureteral stones are present on the left. Multiple bilateral nonobstructing renal stones are present. No cysts are present. Delayed images were obtained through the kidneys, which re main unremarkable. Aorta: Vascular calcification is within the aorta. Inferior vena cava: Normal. CT PELVIS: Loops of bowel within the abdomen and pelvis are normal. This study is without oral contrast limi ting bowel evaluation Appendix: Normal as visualized. Urinary bladder: Normal. Genitourinary structures: Uterus appears normal. Adnexa are normal. Osseous structures: No suspicious lytic or sclerotic lesions. IMPRESSION: 1. 1.2 cm obstructing distal left ureteral stone within the left hemipelvis. Additional smaller ston es are within the ureter. 2. Moderate prominent left hydronephrosis and hydroureter 3. Multiple bilateral nonobstructing renal stones. [facility], Workstation: [facility], 09/16/2024 10:54 PM
[2024-09-16] MEDS: HEPARIN SODIUM 1,000 UN/ML (10ML VL) IV ONE (23:17)
[2024-09-16] MEDS: HEPARIN SOD,PORK IN 0.45% NACL 25,000 UNIT in 0.45% NACL 1 250ML.BAG IV SCH (23:18)
[2024-09-16] MEDS: ASPIRIN 81 MG PO STA (23:19)
[2024-09-16] MEDS ORDERED: ONDANSETRON 4 MG/2 ML VIAL IVP PRN (23:21)
[2024-09-16] MEDS ORDERED: MORPHINE SULFATE 4 MG/ML SYRINGE IV PRN (23:21)
[2024-09-16] MEDS ORDERED: NALOXONE 0.4 MG/ML 1 ML VIAL IV PRN (23:21)
[2024-09-16 23:36] LABS: Influenza A Not Detected (Not Detectd); Influenza B Not Detected (Not Detectd); RSV Not Detected (Not Detectd)
[2024-09-16] MEDS: SODIUM CHLORIDE 0.9% 1,000 ML IV SCH (23:49)
[2024-09-16] MEDS: ATORVASTATIN 80 MG TAB PO STA (23:49)
[2024-09-17] MEDS: IBUPROFEN PO SCH (00:27)
[2024-09-17] MEDS: HYDROCODONE PO SCH (00:27)
--- NOTE | 2024-09-17 00:59 | P.HPIM ---
History of Present Illness H&P Date: 09/16/24 Chief Complaint: Chest pain The patient is a 69-year-old female with history of COPD who presents with chest pain. The patient states the symptoms have been going on for the last 4 days she denies any nausea vomiting she was short of breath the patient felt weak presented to the emergency room where she was found to have an elevated troponin. The patient uses Aleve without relief. The patient had a chest x-ray that showed a small right pleural effusion and COPD changes. The abdomen pelvic CT showed 1.2 cm obstructing distal left ureteral stone with several small st ones. There was moderate left hydronephrosis and hydroureter. The patient was found to have an elevated WBC 26.6. The patient had an elevated BUN of 41 and a creatinine of 2.12. The patient had a hemoglobin of 18.9. The patient had an elevated troponin of 1.7. The patient was hospitalized for further workup and management. Review of Systems Cardiovascular: Reports chest pain Respiratory: Reports dyspnea Past Medical History Past Medical History: Hypertension, Vascular Disorder Additional Past Medical History / Comment(s): CHRONIC MIGRAINES, chronic back pain, hx. fx. knee cap 2014 that affects her gait & back, hx. R kidney stones, hematuria, UTIs, urinary incontinence. History of Any Multi-Drug Resistant Organisms: None Reported Past Surgical History: Cholecystectomy, Orthopedic Surgery, Tonsillectomy Additional Past Surgical History / Comment(s): 12/09/14 Patella tendon repair and removal inferior patellar fragments. ORIF LEFT WRIST, LITHOTRIPSY & NEPHROLITHOTOMY, 2012 stone removal from ureter, recent aortogram Past Anesthesia/Blood Transfusion Reactions: No Reported Reaction Past Psychological History: No Psychological Hx Reported Smoking Status: Current every day smoker Past Alcohol Use History: None Reported Past Drug Use History: Marijuana - Past Family History Mother Family Medical History: Coronary Artery Disease (CAD) Medications and Allergies Home Medications Medication Instructions Recorded Confirmed Type Aspirin 81 mg PO DAILY 08/22/16 09/09/16 History HYDROcodone/IBUPROFEN 7.5-200 1 tab PO Q6HR 08/22/16 09/09/16 History [Vicoprofen 7.5-200 mg] Propranolol HCl [Inderal LA] 160 mg PO DAILY 08/22/16 09/09/16 History amLODIPine BESYLATE/BENAZEPRIL 1 cap PO DAILY 08/22/16 09/09/16 History [Lotrel 10-20 MG] Atorvastatin [Lipitor] 80 mg PO HS #30 tab 09/10/16 Rx Clopidogrel [Plavix] 75 mg PO DAILY #30 tab 09/10/16 Rx Allergies Allergy/AdvReac Type Severity Reaction Status Date / Time Penicillins Allergy Dyspnea. Verified 09/07/16 12:57 THROAT SWELLING Physical Exam Vitals: Vital Signs Temp Pulse Resp BP Pulse Ox 09/16/24 20:21 97.8 F 101 H 18 131/71 99 09/16/24 19:08 97.2 F L 84 18 137/104 97 Intake and Output 09/16/24 09/16/24 09/17/24 14:59 22:59 06:59 Other: Weight 68.039 kg - Constitutional General appearance: cooperative - Respiratory Respiratory: negative: CTA - Cardiovascular Rhythm: regular - Gastrointestinal General gastrointestinal: normal bowel sounds - Neurologic Neurologic: CNII-XII intact - Musculoskeletal Musculoskeletal: strength equal bilaterally - Psychiatric Psychiatric: A&O x's 3, appropriate affect Results CBC & Chem 7: 09/16/24 19:59 09/16/24 19:59 Labs: Abnormal Lab Results - Last 24 Hours (Table) 09/16/24 09/16/24 09/16/24 Range/Units 19:59 19:59 21:12 WBC 26.60 H (4.50-10.00) 10*3/uL RBC 5.71 H (4.10-5.20) 10*6/uL Hgb 18.9 H (12.0-15.0) g/dL Hct 52.9 H (37.2-46.3) % MCH 33.1 H (27.0-32.0) pg Immature Gran # 0.20 H (0.00-0.04) 10*3/uL Neutrophils # 22.03 H (1.80-7.70) 10*3/uL Monocytes # 1.89 H (0.20-1.00) 10*3/uL Eosinophils # 0.01 L (0.04-0.35) 10*3/uL Carbon Dioxide 20 L (22-30) mmol/L BUN 41 H (7-17) mg/dL Creatinine 2.12 H (0.52-1.04) mg/dL Glucose 132 H (74-99) mg/dL POC Glucose (mg/dL) (70-110) mg/dL Calcium 11.1 H (8.4-10.2) mg/dL Total Bilirubin 1.6 H (0.2-1.3) mg/dL AST 75 H (14-36) U/L ALT 40 H (4-34) U/L Alkaline Phosphatase 133 H (38-126) U/L Troponin I 1.700 H* (0.000-0.034) ng/mL Total Protein 8.9 H (6.3-8.2) g/dL // Range/Units 22:35 WBC (4.50-10.00) 10*3/uL RBC (4.10-5.20) 10*6/uL Hgb (12.0-15.0) g/dL Hct (37.2-46.3) % MCH (27.0-32.0) pg Immature Gran # (0.00-0.04) 10*3/uL Neutrophils # (1.80-7.70) 10*3/uL Monocytes # (0.20-1.00) 10*3/uL Eosinophils # (0.04-0.35) 10*3/uL Carbon Dioxide (22-30) mmol/L BUN (7-17) mg/dL Creatinine (0.52-1.04) mg/dL Glucose (74-99) mg/dL POC Glucose (mg/dL) 119 H (70-110) mg/dL Calcium (8.4-10.2) mg/dL Total Bilirubin (0.2-1.3) mg/dL AST (14-36) U/L ALT (4-34) U/L Alkaline Phosphatase (38-126) U/L Troponin I (0.000-0.034) ng/mL Total Protein (6.3-8.2) g/dL Chest x-ray: report reviewed Assessment and Plan (1) KELLI (acute kidney injury) Narrative/Plan: Secondary to obstructive uropathy, urology consult, monitor Cr and renally dose meds Current Visit: Yes Status: Acute Code(s): N17.9 - ACUTE KIDNEY FAILURE, UNSPECIFIED SNOMED Code(s): 50239510 (2) NSTEMI (non-ST elevated myocardial infarction) Narrative/Plan: Serial enzymes, cardiology consult continue heparin drip Current Visit: Yes Status: Acute Code(s): I21.4 - NON-ST ELEVATION (NSTEMI) MYOCARDIAL INFARCTION SNOMED Code(s): 82831297 (3) Ureterolithiasis Narrative/Plan: Will consult urology, IV antibiotics, Current Visit: Yes Status: Acute Code(s): N20.1 - CALCULUS OF URETER SNOMED Code(s): 66707976 (4) COPD (chronic obstructive pulmonary disease) Narrative/Plan: Continue nebs as needed Current Visit: Yes Status: Acute Code(s): J44.9 - CHRONIC OBSTRUCTIVE PULMONARY DISEASE, UNSPECIFIED SNOMED Code(s): 72812848
[2024-09-17] MEDS: HYDROcodone/APAP 7.5-325MG 1 EACH TAB PO SCH (01:03)
[2024-09-17 05:46] LABS: HCT 47.9 % (37.2-46.3); HGB 16.6 g/dL (12.0-15.0); MCH 33.1 pg (27.0-32.0); MCHC 34.7 g/dL (32.0-37.0); MCV 95.6 fL (80.0-97.0); Mean Platelet Volume 10.9 fL (9.5-12.2); Platelet Count 292 10*3/uL (140-440); RBC 5.01 10*6/uL (4.10-5.20); RDW 13.4 % (11.5-14.5); WBC 23.29 10*3/uL (4.50-10.00)
[2024-09-17 06:09] LABS: INR 1.1 (<1.2); Partial Thromboplastin Time 41.7 sec (22.0-30.0)
[2024-09-17 06:52] LABS: Monocytes # (M) 2.33 k/uL (0-1.0); Neutrophils # (M) 19.56 k/uL (1.3-7.7); Neutrophils % (M) 84 %; Nucleated Red Blood Cells 0 /100 WBC (0-0); RBC Morphology Normal; Total Cells Counted 100
[2024-09-17 07:17] LABS: ALT 39 U/L (4-34); African American GFR (CKD) 25 (>60 ml/min/1.73 sqM); Anion Gap 11 mmol/L; Blood Urea Nitrogen 53 mg/dL (7-17); Carbon Dioxide 25 mmol/L (22-30); Chloride 102 mmol/L (98-107); Glucose 111 mg/dL (74-99); Non-African American GFR(CKD) 22 (>60 ml/min/1.73 sqM); Sodium 138 mmol/L (137-145); Total Protein 7.2 g/dL (6.3-8.2)
[2024-09-17 07:30] LABS: AST 58 U/L (14-36); Alkaline Phosphatase 94 U/L (38-126); Potassium 3.8 mmol/L (3.5-5.1)
[2024-09-17] MEDS ORDERED: lisinopriL 20 MG TAB PO SCH (09:00)
[2024-09-17] MEDS: PROPRANOLOL LA 80 MG CAP.SA.24H PO SCH (09:11)
[2024-09-17] MEDS: CLOPIDOGREL 75 MG TAB PO SCH (09:11)
[2024-09-17] MEDS: ASPIRIN 81 MG PO SCH (09:12)
[2024-09-17] MEDS: amLODIPine 10 MG TAB PO SCH (09:12)
[2024-09-17] MEDS: EZETIMIBE 10 MG TAB PO SCH (09:14)
--- NOTE | 2024-09-17 10:18 | P.NPCON ---
History of Present Illness - Reason for Consult acute renal failure - History of Present Illness Reason for consultation: Acute kidney injury History of present is: Patient is a 69-year-old female seen in renal consultation for acute kidney injury. Patient's creatinine dated June 07, 2024 was 1.1 and 0.9 dated July 19, 2023. Creatinine this admission has been stable in the range of 2.1-2.2. Patient came to the hospital due to generalized weakness. Patient says she has been feeling dizzy for a few days. She does admit to taking pain meds and believes they are NSAIDs but is not sure of the name. She also takes Vicodin. Patient states oral intake has been poor the last few days. She does admit to loose bowel movements. She denies history of diabetes or coronary artery disease. Denies gross hematuria or dysuria. She was taking amlodipine, benazepril as well as metoprolol for blood pressure at home. Blood pressure this admission has been stable. CT scan showed left-sided hydronephrosis and bilateral nonobstructing stones. Denies fever or chills. She is on room air. Vital signs are stable. General: No acute distress. HEENT: Head exam is unremarkable. LUNGS: No audible rhonchi or wheezes. HEART: Rate and Rhythm are regular. ABDOMEN: Nontender. EXTREMITITES: No edema. Past Medical History Past Medical History: Hypertension, Vascular Disorder Additional Past Medical History / Comment(s): CHRONIC MIGRAINES, chronic back pain, hx. fx. knee cap 2014 that affects her gait & back, hx. R kidney stones, hematuria, UTIs, urinary incontinence. History of Any Multi-Drug Resistant Organisms: None Reported Past Surgical History: Cholecystectomy, Orthopedic Surgery, Tonsillectomy Additional Past Surgical History / Comment(s): 12/09/14 Patella tendon repair and removal inferior patellar fragments. ORIF LEFT WRIST, LITHOTRIPSY & NEPHROL ITHOTOMY, 2012 stone removal from ureter, recent aortogram Past Anesthesia/Blood Transfusion Reactions: No Reported Reaction Past Psychological History: No Psychological Hx Reported Smoking Status: Current every day smoker Past Alcohol Use History: None Reported Past Drug Use History: Marijuana - Past Family History Mother Family Medical History: Coronary Artery Disease (CAD) Medications and Allergies Home Medications Medication Instructions Recorded Confirmed Type amLODIPine BESYLATE/BENAZEPRIL 1 cap PO DAILY 08/22/16 09/17/24 History [Lotrel 10-20 MG] Metoprolol Succinate (ER) [Toprol 100 mg PO DAILY 09/17/24 09/17/24 History Xl] Allergies Allergy/AdvReac Type Severity Reaction Status Date / Time Penicillins Allergy Dyspnea. Verified 09/17/24 08:20 THROAT SWELLING Physical Exam Vitals: Vital Signs Temp Pulse Resp BP Pulse Ox 09/17/24 08:40 98.5 F 87 18 123/71 97 09/17/24 06:00 89 18 135/89 97 09/17/24 03:15 85 14 137/86 97 09/17/24 00:00 98.7 F 92 21 137/90 97 09/16/24 20:21 97.8 F 101 H 18 131/71 99 09/16/24 19:08 97.2 F L 84 18 137/104 97 Intake and Output 09/16/24 09/17/24 09/17/24 22:59 06:59 14:59 Output Total 13 Balance -13 Output: Post Void Residual 13 Other: Weight 68.039 kg Results - Lab Results Most recent lab results Calcium 10.0 mg/dL (8.4-10.2) 09/17/24 05:19 Phosphorus 3.3 mg/dL (2.5-4.5) 09/16/24 19:59 Magnesium 2.2 mg/dL (1.6-2.3) 09/16/24 19:59 09/17/24 05:19 09/17/24 05:19 Assessment and Plan Plan: Assessment: 1. Acute kidney injury secondary to ATN, further worsened with the use of SHI inhibitor. Possible component of obstructive uropathy. Creatinine 2.2 today. Baseline creatinine near 1. 2. Left-sided hydronephrosis with bilateral stones. Urology consulted. 3. Hypercalcemia secondary to volume contraction. Improved with fluids. 4. Benign hypertension. 5. Dizziness possibly from hypovolemia. Plan: Maintain IV fluids. Discontinue SHI inhibitor. Check UA. Avoid nephrotoxins. Continue to monitor renal function and urine output. Follow-up echocardiogram. Thank you for the consultation. I will continue to follow the patient with you during her hospital stay.
--- NOTE | 2024-09-17 10:23 | P.GSCN ---
History of Present Illness Consult date: 09/17/24 Reason for Consult: Left ureteral stone History of present illness: This is a 69-year-old female admitted to the hospital with an NSTEMI. Presented to the hospital with chest pain, she also indicated she has been having diffuse abdominal pain. Denies any nausea or vomiting. Does not have a previous history of kidney stones. She underwent a CT abdomen and pelvis that showed evidence of a 1.2 cm left-sided distal ureteral stone, and multiple stones beyond that. There is moderate amount of atrophy in the kidney. She denies any gross hematuria or dysuria. Her creatinine is elevated at 2.2, her baseline is 1.1. Creatinine is persistently elevated despite hydration. Her white count was also at 26,000. She is afebrile. She indicated her abdominal and flank pain is fairly mild. Patient is started on a heparin drip for her NSTEMI. Review of Systems - Constitutional Denies fever, Denies weight loss - Cardiovascular Reports chest pain - Respiratory Denies cough, Denies 7 - Gastrointestinal Reports abdominal pain, Denies nausea, Denies vomiting - Genitourinary Genitourinary: Reports flank pain Past Medical History Past Medical History: Hypertension, Vascular Disorder Additional Past Medical History / Comment(s): CHRONIC MIGRAINES, chronic back pain, hx. fx. knee cap 2014 that affects her gait & back, hx. R kidney stones, hematuria, UTIs, urinary incontinence. History of Any Multi-Drug Resistant Organisms: None Reported Past Surgical History: Cholecystectomy, Orthopedic Surgery, Tonsillectomy Additional Past Surgical History / Comment(s): 12/09/14 Patella tendon repair and removal inferior patellar fragments. ORIF LEFT WRIST, LITHOTRIPSY & NEPHROLITHOTOMY, 2012 stone removal from ureter, recent aortogram Past Anesthesia/Blood Transfusion Reactions: No Reported Reaction Past Psychological History: No Psychological Hx Reported Smoking Status: Current every day smoker Past Alcohol Use History: None Reported Past Drug Use History: Marijuana - Past Family History Mother Family Medical History: Coronary Artery Disease (CAD) Medications and Allergies Home Medications Medication Instructions Recorded Confirmed Type amLODIPine BESYLATE/BENAZEPRIL 1 cap PO DAILY 08/22/16 09/17/24 History [Lotrel 10-20 MG] Metoprolol Succinate (ER) [Toprol 100 mg PO DAILY 09/17/24 09/17/24 History Xl] Allergies Allergy/AdvReac Type Severity Reaction Status Date / Time Penicillins Allergy Dyspnea. Verified 09/17/24 08:20 THROAT SWELLING Surgical - Exam Vital Signs Temp Pulse Resp BP Pulse Ox 97.2 F L 84 18 137/104 97 09/16/24 19:08 09/16/24 19:08 09/16/24 19:08 09/16/24 19:08 09/16/24 19:08 - General no distress, moderate pain - Eyes normal ocular movement, no pale - ENT normal nares, normal mucosa - Respiratory normal expansion, normal respiratory effort - Abdomen Abdomen: soft, tender (Diffuse abdomen), no distended - Psychiatric oriented to time, oriented to person, oriented to place Results - Labs 09/17/24 05:19 09/17/24 05:19 Abnormal Lab Results - Last 24 Hours (Table) 09/16/24 09/16/24 09/16/24 Range/Units 19:59 19:59 19:59 WBC 26.60 H (4.50-10.00) 10*3/uL RBC 5.71 H (4.10-5.20) 10*6/uL Hgb 18.9 H (12.0-15.0) g/dL Hct 52.9 H (37.2-46.3) % MCH 33.1 H (27.0-32.0) pg Immature Gran # 0.20 H (0.00-0.04) 10*3/uL Neutrophils # 22.03 H (1.80-7.70) 10*3/uL Neutrophils # (Manual) (1.3-7.7) k/uL Monocytes # 1.89 H (0.20-1.00) 10*3/uL Monocytes # (Manual) (0-1.0) k/uL Eosinophils # 0.01 L (0.04-0.35) 10*3/uL APTT (22.0-30.0) sec Carbon Dioxide 20 L (22-30) mmol/L BUN 41 H (7-17) mg/dL Creatinine 2.12 H (0.52-1.04) mg/dL Glucose 132 H (74-99) mg/dL POC Glucose (mg/dL) (70-110) mg/dL Calcium 11.1 H (8.4-10.2) mg/dL Total Bilirubin 1.6 H (0.2-1.3) mg/dL AST 75 H (14-36) U/L ALT 40 H (4-34) U/L Alkaline Phosphatase 133 H (38-126) U/L Creatine Kinase 439 H (30-135) U/L Troponin I (0.000-0.034) ng/mL Total Protein 8.9 H (6.3-8.2) g/dL 09/16/24 09/16/24 09/17/24 Range/Units 21:12 22:35 00:25 WBC (4.50-10.00) 10*3/uL RBC (4.10-5.20) 10*6/uL Hgb (12.0-15.0) g/dL Hct (37.2-46.3) % MCH (27.0-32.0) pg Immature Gran # (0.00-0.04) 10*3/uL Neutrophils # (1.80-7.70) 10*3/uL Neutrophils # (Manual) (1.3-7.7) k/uL Monocytes # (0.20-1.00) 10*3/uL Monocytes # (Manual) (0-1.0) k/uL Eosinophils # (0.04-0.35) 10*3/uL APTT (22.0-30.0) sec Carbon Dioxide (22-30) mmol/L BUN (7-17) mg/dL Creatinine (0.52-1.04) mg/dL Glucose (74-99) mg/dL POC Glucose (mg/dL) 119 H (70-110) mg/dL Calcium (8.4-10.2) mg/dL Total Bilirubin (0.2-1.3) mg/dL AST (14-36) U/L ALT (4-34) U/L Alkaline Phosphatase (38-126) U/L Creatine Kinase (30-135) U/L Troponin I 1.700 H* 1.690 H* (0.000-0.034) ng/mL Total Protein (6.3-8.2) g/dL 09/17/24 09/17/24 09/17/24 Range/Units 05:19 05:19 05:19 WBC 23.29 H (4.50-10.00) 10*3/uL RBC (4.10-5.20) 10*6/uL Hgb 16.6 H (12.0-15.0) g/dL Hct 47.9 H (37.2-46.3) % MCH 33.1 H (27.0-32.0) pg Immature Gran # 0.08 H (0.00-0.04) 10*3/uL Neutrophils # (1.80-7.70) 10*3/uL Neutrophils # (Manual) 19.56 H (1.3-7.7) k/uL Monocytes # (0.20-1.00) 10*3/uL Monocytes # (Manual) 2.33 H (0-1.0) k/uL Eosinophils # (0.04-0.35) 10*3/uL APTT 41.7 H (22.0-30.0) sec Carbon Dioxide (22-30) mmol/L BUN (7-17) mg/dL Creatinine (0.52-1.04) mg/dL Glucose (74-99) mg/dL POC Glucose (mg/dL) (70-110) mg/dL Calcium (8.4-10.2) mg/dL Total Bilirubin (0.2-1.3) mg/dL AST (14-36) U/L ALT (4-34) U/L Alkaline Phosphatase (38-126) U/L Creatine Kinase (30-135) U/L Troponin I 1.290 H* (0.000-0.034) ng/mL Total Protein (6.3-8.2) g/dL /11/06 Range/Units 05:19 WBC (4.50-10.00) 10*3/uL RBC (4.10-5.20) 10*6/uL Hgb (12.0-15.0) g/dL Hct (37.2-46.3) % MCH (27.0-32.0) pg Immature Gran # (0.00-0.04) 10*3/uL Neutrophils # (1.80-7.70) 10*3/uL Neutrophils # (Manual) (1.3-7.7) k/uL Monocytes # (0.20-1.00) 10*3/uL Monocytes # (Manual) (0-1.0) k/uL Eosinophils # (0.04-0.35) 10*3/uL APTT (22.0-30.0) sec Carbon Dioxide (22-30) mmol/L BUN 53 H (7-17) mg/dL Creatinine 2.23 H (0.52-1.04) mg/dL Glucose 111 H (74-99) mg/dL POC Glucose (mg/dL) (70-110) mg/dL Calcium (8.4-10.2) mg/dL Total Bilirubin (0.2-1.3) mg/dL AST 58 H (14-36) U/L ALT 39 H (4-34) U/L Alkaline Phosphatase (38-126) U/L Creatine Kinase (30-135) U/L Troponin I (0.000-0.034) ng/mL Total Protein (6.3-8.2) g/dL Diabetes panel 09/16/24 09/17/24 Range/Units 19:59 05:19 Sodium 138 138 (137-145) mmol/L Potassium 4.0 3.8 (3.5-5.1) mmol/L Chloride 98 102 (98-107) mmol/L Carbon Dioxide 20 L 25 (22-30) mmol/L BUN 41 H 53 H (7-17) mg/dL Creatinine 2.12 H 2.23 H (0.52-1.04) mg/dL Glucose 132 H 111 H (74-99) mg/dL Calcium 11.1 H 10.0 (8.4-10.2) mg/dL AST 75 H 58 H (14-36) U/L ALT 40 H 39 H (4-34) U/L Alkaline Phosphatase 133 H 94 (38-126) U/L Total Protein 8.9 H 7.2 (6.3-8.2) g/dL Albumin 5.0 4.0 (3.5-5.0) g/dL Calcium panel 09/16/24 09/17/24 Range/Units 19:59 05:19 Calcium 11.1 H 10.0 (8.4-10.2) mg/dL Phosphorus 3.3 (2.5-4.5) mg/dL Albumin 5.0 4.0 (3.5-5.0) g/dL Pituitary panel 09/16/24 09/17/24 Range/Units 19:59 05:19 Sodium 138 138 (137-145) mmol/L Potassium 4.0 3.8 (3.5-5.1) mmol/L Chloride 98 102 (98-107) mmol/L Carbon Dioxide 20 L 25 (22-30) mmol/L BUN 41 H 53 H (7-17) mg/dL Creatinine 2.12 H 2.23 H (0.52-1.04) mg/dL Glucose 132 H 111 H (74-99) mg/dL Calcium 11.1 H 10.0 (8.4-10.2) mg/dL Adrenal panel 09/16/24 09/17/24 Range/Units 19:59 05:19 Sodium 138 138 (137-145) mmol/L Potassium 4.0 3.8 (3.5-5.1) mmol/L Chloride 98 102 (98-107) mmol/L Carbon Dioxide 20 L 25 (22-30) mmol/L BUN 41 H 53 H (7-17) mg/dL Creatinine 2.12 H 2.23 H (0.52-1.04) mg/dL Glucose 132 H 111 H (74-99) mg/dL Calcium 11.1 H 10.0 (8.4-10.2) mg/dL Total Bilirubin 1.6 H 1.0 (0.2-1.3) mg/dL AST 75 H 58 H (14-36) U/L ALT 40 H 39 H (4-34) U/L Alkaline Phosphatase 133 H 94 (38-126) U/L Total Protein 8.9 H 7.2 (6.3-8.2) g/dL Albumin 5.0 4.0 (3.5-5.0) g/dL Assessment and Plan Assessment: 69-year-old female with a history of 1.2 cm left-sided distal stone, and acute kidney injury. Also possible NSTEMI. From urology standpoint she will require a stent insertion given her acute kidney injury and the obstructing stone. We would not proceed with any surgical intervention until patient is cleared from cardiology standpoint. I did discuss with her that the stent would allow the for renal recovery. But did discuss she will eventually require left-sided ureteroscopy with holmium laser. Discussed also given the atrophy of the left kidney there is potential the stone could be impacted and I may not be able to proceed with stent insertion. -NPO pas MN -Will tentatively schedule for a cystoscopy with left stent insertion tomorrow pending cardiology evaluation and clearance. Discussed this can be done under sedation. Willing proceed with stent insertion if cleared by cardiology
--- NOTE | 2024-09-17 10:31 | CA ---
Transthoracic Echo Report Name: Dom Polanco Age: 69 Gender: F : 1955 Exam Date: 09/17/2024 08:36 Exam Location: [place] [facility] Ht (in): 70 Wt (lb): 160 Ordering Physician: Katja Garces Attending/Referring Phys: [id number], Mili Medicare Nurse Dannielle Mackey, ROSIO Procedure CPT: Indications: nstemi Cardiac Hx: Technical Quality: Fair Contrast 1: Definity Total Dose (mL): 2 Contrast 2: Total Dose (mL): MEASUREMENTS (Male / Female) Normal Values 2D ECHO LV Diastolic Diameter PLAX 3.1 cm 4.2 - 5.9 / 3.9 - 5.3 cm LV Systolic Diameter PLAX 1.8 cm IVS Diastolic Thickness 1.2 cm 0.6 - 1.0 / 0.6 - 0.9 cm LVPW Diastolic Thickness 1.2 cm 0.6 - 1.0 / 0.6 - 0.9 cm LV Relative Wall Thickness 0.8 LVOT Diameter 2.1 cm LA Volume 16.1 cm??? 18 - 58 / 22 - 52 cm??? LA Volume Index 8.5 cm???/m??? 16 - 28 cm???/m??? M-MODE Aortic Root Diameter MM 3.1 cm LA Systolic Diameter MM 2.7 cm LA Ao Ratio MM 0.9 AV Cusp Separation MM 1.5 cm DOPPLER MV Area PHT 3.8 cm??? Mitral E Point Velocity 54.7 cm/s Mitral A Point Velocity 104.0 cm/s Mitral E to A Ratio 0.5 MV Deceleration Time 199.9 ms TR Peak Velocity 238.9 cm/s TR Peak Gradient 22.8 mmHg PV Peak Velocity 95.6 cm/s PV Peak Gradient 3.7 mmHg FINDINGS Left Ventricle Left ventricular ejection fraction is estimated at 40-45 %. Moderately increased septal wall thickness. Mildly increased posterior wall thickness. Distal septum and adjoining anteroapical wall appear hypokinetic and there is a mid cavitary gradient noted. There is moderate concentric LVH. Right Ventricle Normal right ventricular size and function. Right ventricular systolic pressure within normal limits. Right Atrium Normal right atrial size. Left Atrium Normal left atrial size. Mitral Valve Structurally normal mitral valve. Mild mitral regurgitation. No mitral stenosis. Aortic Valve Trileaflet aortic valve. No aortic valve stenosis or regurgitation. Diffuse thickening (sclerosis) of the aortic valve cusps without reduced excursion. Tricuspid Valve Structurally normal tricuspid valve. Mild tricuspid regurgitation. No tricuspid stenosis. Pulmonic Valve Structurally normal pulmonic valve. Trace pulmonic regurgitation. No pulmonic stenosis. Pericardium Small pericardial effusion. . Aorta Normal size aortic root and proximal ascending aorta. CONCLUSIONS LV size is normal with moderate concentric LVH anteroapical septal hypokinesia with mid cavitary gradient. Consider apical ballooning syndrome with concentric LVH. Mild mitral and tricuspid regurgitation. Cannot exclude trivial to small pericardial effusion Previewed by: Dr. Yady Dent MD (Electronically Signed) Final Date: 17 Sep 2024 10:30
--- NOTE | 2024-09-17 11:19 | P.PN ---
Subjective Progress Note Date: 09/17/24 Hospital course: Patient is a very pleasant 69-year-old female with a past medical history of COPD and continued nicotine dependence, hypertension, and peripheral arterial disease. She presented to the emergency department with a chief complaint of chest pain x 4 days accompanied by nausea, vomiting, and shortness of breath. Upon arrival to our facility, patient underwent evaluation in the emergency department. Vital signs upon arrival show blood pressure 137/104, heart rate 84, respiratory rate 18, temp 97.2 F, and SpO2 of 97% on room air. EKG completed showing sinus tachycardia at 101 bpm with no significant T wave or ST abnormality showing no signs of acute ischemia upon personal review and interpretation. Chest x-ray showing small right pleural effusion and hyperinflation with flattening of the diaphragm consistent with COPD. Labs completed and reviewed. CBC showing leukocytosis with WBC count of 26.60 and elevated hemoglobin of 18.9. Coagulation profile normal findings. BMP showing hypocarbia with bicarb of 20, elevated anion gap of 20, and acute kidney injury with BUN of 41, creatinine of 2.12, GFR of 23. Blood glucose was 132. Lactic acid was 1.3. Calcium was elevated at 11.1. Magnesium 2.2. Liver profile showing hyperbilirubinemia with transaminitis with total bili of 1.6, AST of 75, ALT of 40, and alkaline phosphatase of 133. Creatinine kinase also elevated at 439. Troponin elevated at 1.700. Influenza A, influenza B, RSV, and COVID PCR were negative. CT abdomen and pelvis without contrast showing a 1.2 cm obstructing distal left ureteral stone within the left hemipelvis and additional smaller stones within the ureter, moderate prominent left hydronephrosis and hydroureter, and multiple bilateral nonobstructing renal stones. Patient was started on low intensity heparin infusion for treatment of NSTEMI and admitted under our services with consultation to nephrology, urology, and cardiology. Troponins are trended resulting at 1.700, 1.690, and 1.290. Physical exam: Patient seen and fully evaluated at bedside this morning. She currently reports resolution of chest pain at this time. Patient also denies having any shortness of breath, nausea, fevers, chills, diaphorsisi, flank pain or difficulties with urination at this time. Vital signs reviewed and stable. General: Nontoxic, no distress and appears stated age. Derm: Skin warm and dry, normal coloration for ethnicity. Head: Atraumatic, normocephalic and symmetric. Eyes: EOM's intact, no lid lag, and anicteric sclera Mouth: no lip lesions, mucus membranes moist Cardiovascular: regular rate and rhythm with normal S1S2, systolic murmur, positive posterior tibial pulses bilaterally, and cap refill < 2 seconds. Lungs: Respirations even, regular, and unlabored on room air. Lungs CTA bilaterally, no rhonchi, no rales, no wheezing, and no accessory muscle usage. Abdominal: soft, nontender to palpation, no guarding, no appreciable organomegaly Ext: ROM intact. No gross muscle atrophy, no edema, no contractures Neuro: Speech clear, face symmetrical and CN II-XII grossly intact with no noted focal neuro deficits Psych: Alert and oriented to person, place, time, and situation. Appropriate and pleasant affect. Assessment and Plan of Care: NSTEMI Hypertension Hyperlipidemia Peripheral arterial disease - Cardiology consulted, appreciate recommendations - Continue low intensity heparin infusion with close monitoring of PTT every 6 hours for goal therapeutic range of 45 to 79 seconds. - Telemetry monitoring - Troponins are trended resulting at 1.700, 1.690, and 1.290. - Aspirin 81 mg daily, Plavix 75 mg daily, atorvastatin 80 mg nightly, amlodipine 10 mg daily, Zetia 10 mg daily, and metoprolol succinate 100 mg daily. - Echocardiogram to be completed Obstructive left ureteral stone with left-sided hydronephrosis and hydroureter Acute kidney injury Leukocytosis Hypercalcemia, resolved with IV fluid hydration - Follow-up on urinalysis and urine culture - Continue IV antibiotics with Rocephin 1 g daily pending urinalysis and urine culture results. - Order placed for RN communication to Bladder[facility] to monitor for postvoid residual/retention and to straight catheterize if needed to obtain urine specimen for previously ordered urinalysis. - Urology consulted, appreciate recommendations. - Nephrology consulted, appreciate recommendations. - Continued close monitoring with repeat a.m. labs. - Follow up on blood culture results. Transaminitis, improving - Continue close monitoring for improvement/resolution with repeat morning CMP. COPD, not in acute exacerbation Nicotine dependence -Recommend smoking cessation. Order placed for nicotine patch 21 mg daily. Data and imaging reviewed: - Morning labs reviewed. Troponins are trended resulting at 1.700, 1.690, and 1.290. CBC showing continued leukocytosis with WBC count of 23.29 with a left shift with immature granulocytes of 0.08, neutrophils 19.56, and monocytes 2.33 and hemoglobin of 16.6 with hematocrit of 47.9. Coagulation profile showing subtherapeutic PTT of 41.7. BMP showing continued KELLI with BUN of 53, creatinine 2.23, GFR of 22. Blood glucose 111. Hemoglobin A1c 5.6%. Liver p rofile showing improvement of transaminitis with total bili of 1.0, AST of 58, ALT of 39, and alkaline phosphatase of 94. - Vital signs reviewed. Blood pressure 123/71, heart rate 87, respiratory rate 18, temp 98.5 F, and SpO2 of 97% on room air. - CT abdomen and pelvis without contrast showing a 1.2 cm obstructing distal left ureteral stone within the left hemipelvis and additional smaller stones within the ureter, moderate prominent left hydronephrosis and hydroureter, and multiple bilateral nonobstructing renal stones. CODE STATUS: Full code DVT prophylaxis: Low intensity heparin infusion Anticipated discharge date: Pending clinical course Anticipated discharge place: Home Patient was seen independently by Nurse Pracitioner. This document was prepared using [employer] dictation software. Please allow for errors in data report analyst, while rare they do occur. Alejandro Ng NP rendered care for this patient independently, reviewed the findings and plan as documented in the note above and agree with plan. I did not physically speak with or examine the patient on this date. Objective - Vital Signs Vital signs: Vital Signs Temp 98.7 F 09/17/24 00:00 Pulse 89 09/17/24 06:00 Resp 18 09/17/24 06:00 BP 135/89 09/17/24 06:00 Pulse Ox 97 09/17/24 06:00 FiO2 Intake & Output 09/16/24 09/17/24 09/17/24 18:59 06:59 18:59 Output Total 13 Balance -13 Weight 68.039 kg Output: Post Void Residual 13 - Labs CBC & Chem 7: 09/17/24 05:19 09/17/24 05:19 Labs: Abnormal Lab Results - Last 24 Hours (Table) 09/16/24 09/16/24 09/16/24 Range/Units 19:59 19:59 19:59 WBC 26.60 H (4.50-10.00) 10*3/uL RBC 5.71 H (4.10-5.20) 10*6/uL Hgb 18.9 H (12.0-15.0) g/dL Hct 52.9 H (37.2-46.3) % MCH 33.1 H (27.0-32.0) pg Immature Gran # 0.20 H (0.00-0.04) 10*3/uL Neutrophils # 22.03 H (1.80-7.70) 10*3/uL Neutrophils # (Manual) (1.3-7.7) k/uL Monocytes # 1.89 H (0.20-1.00) 10*3/uL Monocytes # (Manual) (0-1.0) k/uL Eosinophils # 0.01 L (0.04-0.35) 10*3/uL APTT (22.0-30.0) sec Carbon Dioxide 20 L (22-30) mmol/L BUN 41 H (7-17) mg/dL Creatinine 2.12 H (0.52-1.04) mg/dL Glucose 132 H (74-99) mg/dL POC Glucose (mg/dL) (70-110) mg/dL Calcium 11.1 H (8.4-10.2) mg/dL Total Bilirubin 1.6 H (0.2-1.3) mg/dL AST 75 H (14-36) U/L ALT 40 H (4-34) U/L Alkaline Phosphatase 133 H (38-126) U/L Creatine Kinase 439 H (30-135) U/L Troponin I (0.000-0.034) ng/mL Total Protein 8.9 H (6.3-8.2) g/dL 09/16/24 09/16/24 09/17/24 Range/Units 21:12 22:35 00:25 WBC (4.50-10.00) 10*3/uL RBC (4.10-5.20) 10*6/uL Hgb (12.0-15.0) g/dL Hct (37.2-46.3) % MCH (27.0-32.0) pg Immature Gran # (0.00-0.04) 10*3/uL Neutrophils # (1.80-7.70) 10*3/uL Neutrophils # (Manual) (1.3-7.7) k/uL Monocytes # (0.20-1.00) 10*3/uL Monocytes # (Manual) (0-1.0) k/uL Eosinophils # (0.04-0.35) 10*3/uL APTT (22.0-30.0) sec Carbon Dioxide (22-30) mmol/L BUN (7-17) mg/dL Creatinine (0.52-1.04) mg/dL Glucose (74-99) mg/dL POC Glucose (mg/dL) 119 H (70-110) mg/dL Calcium (8.4-10.2) mg/dL Total Bilirubin (0.2-1.3) mg/dL AST (14-36) U/L ALT (4-34) U/L Alkaline Phosphatase (38-126) U/L Creatine Kinase (30-135) U/L Troponin I 1.700 H* 1.690 H* (0.000-0.034) ng/mL Total Protein (6.3-8.2) g/dL 09/17/24 09/17/24 09/17/24 Range/Units 05:19 05:19 05:19 WBC 23.29 H (4.50-10.00) 10*3/uL RBC (4.10-5.20) 10*6/uL Hgb 16.6 H (12.0-15.0) g/dL Hct 47.9 H (37.2-46.3) % MCH 33.1 H (27.0-32.0) pg Immature Gran # 0.08 H (0.00-0.04) 10*3/uL Neutrophils # (1.80-7.70) 10*3/uL Neutrophils # (Manual) 19.56 H (1.3-7.7) k/uL Monocytes # (0.20-1.00) 10*3/uL Monocytes # (Manual) 2.33 H (0-1.0) k/uL Eosinophils # (0.04-0.35) 10*3/uL APTT 41.7 H (22.0-30.0) sec Carbon Dioxide (22-30) mmol/L BUN (7-17) mg/dL Creatinine (0.52-1.04) mg/dL Glucose (74-99) mg/dL POC Glucose (mg/dL) (70-110) mg/dL Calcium (8.4-10.2) mg/dL Total Bilirubin (0.2-1.3) mg/dL AST (14-36) U/L ALT (4-34) U/L Alkaline Phosphatase (38-126) U/L Creatine Kinase (30-135) U/L Troponin I 1.290 H* (0.000-0.034) ng/mL Total Protein (6.3-8.2) g/dL 09/17/24 Range/Units 05:19 WBC (4.50-10.00) 10*3/uL RBC (4.10-5.20) 10*6/uL Hgb (12.0-15.0) g/dL Hct (37.2-46.3) % MCH (27.0-32.0) pg Immature Gran # (0.00-0.04) 10*3/uL Neutrophils # (1.80-7.70) 10*3/uL Neutrophils # (Manual) (1.3-7.7) k/uL Monocytes # (0.20-1.00) 10*3/uL Monocytes # (Manual) (0-1.0) k/uL Eosinophils # (0.04-0.35) 10*3/uL APTT (22.0-30.0) sec Carbon Dioxide (22-30) mmol/L BUN 53 H (7-17) mg/dL Creatinine 2.23 H (0.52-1.04) mg/dL Glucose 111 H (74-99) mg/dL POC Glucose (mg/dL) (70-110) mg/dL Calcium (8.4-10.2) mg/dL Total Bilirubin (0.2-1.3) mg/dL AST 58 H (14-36) U/L ALT 39 H (4-34) U/L Alkaline Phosphatase (38-126) U/L Creatine Kinase (30-135) U/L Troponin I (0.000-0.034) ng/mL Total Protein (6.3-8.2) g/dL
[2024-09-17] MEDS: NICOTINE 21MG/24HR PATCH TRANSDERM SCH (12:18)
--- NOTE | 2024-09-17 12:23 | P.CRDCN ---
History of Present Illness Consult date: 09/17/24 Reason for Consult (text): NSTEMI History of present illness: This is a 69-year-old female patient of Dr. Baum last seen in the office on 10/2021 with past medical history of PAD status post [employer] of the left SFA in 2016, history of smoking, hypertension, hyperlipidemia, COPD. We have been asked to evaluate the patient for NSTEMI. Patient states she is not sure why she came into the hospital. She notes that she had a migraine headache yesterday. She denies any chest pain at this time but states she had pain yesterday. Patient presented to the hospital according to the ER records for nausea vomiting weakness. Blood pressure 129/86, heart rate 87, pulse ox 96% on room air. Patient seen today in the emergency center waiting for bed on the cardiac stepdown unit. Patient has been started on heparin drip. -EKG: Sinus tachycardia with no acute ST-T wave changes -Chest x-ray: Small right pleural effusion. COPD. -CT abdomen pelvis without contrast: 1.2 cm obstructing distal left ureteral stone within the left hemipelvis. Moderate left hydronephrosis and hydroureter. Multiple bilateral nonobstructing renal stones. -Laboratory studies: WBC 26.6, hemoglobin 18.9, BUN 53 creatinine 2.23. Troponin 1.7, 1.69, 1.29. Magnesium 2.2. Total bilirubin 1.6, AST 75, ALT 40, alkaline phosphatase 133. CK4 139. Cepheid viral panel not detected. -Home cardiac medications: Amlodipine/benazepril 10-20 mg 1 daily, metoprolol succinate 100 mg daily. -Echocardiogram performed in 2020 in the office revealed EF 50%, no LVH. Right ventricle is small and underfilled with abnormal function. Right ventricle is moderately extrinsically compressed. Mild tricuspid regurgitation, mild pulmonary regurgitation. Review Of Systems: At the time of my exam: CONSTITUTIONAL: Denies fever or chills. HEENT: Denies blurred vision, vision changes, or eye pain. Denies hemoptysis CARDIOVASCULAR: Denies chest pain. Denies orthopnea. Denies PND. Denies palpitations RESPIRATORY: Denies shortness of breath. GASTROINTESTINAL: Denies abdominal pain. Denies nausea or vomiting. HEMATOLOGIC: Denies bleeding disorders. GENITOURINARY: Denies any blood in urine. SKIN: Denies puritis. Denies rash. Physical examination: Gen: This is six 69-year-old female in no acute distress. VS: reviewed HEENT: Head is atraumatic, normocephalic. Pupils equal, round. Sclerae is anicteric. NECK: Supple. No JVD. LUNGS: Clear to auscultation. No wheezes or rhonchi. No intercostal retractions. HEART: Regular rate and rhythm. No murmur. ABDOMEN: Soft No tenderness. EXTREMITIES: No pedal edema. No calf tenderness. NEUROLOGICAL: Patient is awake, alert and oriented x2. Assessment: Elevated troponins most likely type II with flat pattern Mental status changes Nausea and vomiting Acute kidney injury Obstructive uropathy Moderate left hydronephrosis and hydroureter Elevated liver function test Peripheral vascular disease Hypertension Dyslipidemia COPD Tobacco use Plan: Resume patient's home cardiac medications Continue aspirin 81 mg daily, Lipitor 80 mg daily Add Zetia 10 mg daily Continue heparin drip Obtain A1c, lipid panel Obtain 2-D echocardiogram and Doppler study to assess cardiac structure and function In light of patient's mental status changes, acute kidney injury, no aggressive CAD workup at this time. At the time of discharge, patient will follow-up with Dr. Baum and arrangements will be made outpatient for ischemic workup Further recommendations to follow based upon clinical course Smoking cessation. Patient will be provided the [place] quit line information at discharge. Thank you kindly for this consultation. Nurse practitioner note has been reviewed, I agree with documented findings and plan of care. Patient was seen and examined. Past Medical History Past Medical History: Hypertension, Vascular Disorder Additional Past Medical History / Comment(s): CHRONIC MIGRAINES, chronic back pain, hx. fx. knee cap 2014 that affects her gait & back, hx. R kidney stones, hematuria, UTIs, urinary incontinence. History of Any Multi-Drug Resistant Organisms: None Reported Past Surgical History: Cholecystectomy, Orthopedic Surgery, Tonsillectomy Additional Past Surgical History / Comment(s): 12/09/14 Patella tendon repair and removal inferior patellar fragments. ORIF LEFT WRIST, LITHOTRIPSY & NEPHROLITHOTOMY, 2011 stone removal from ureter, recent aortogram Past Anesthesia/Blood Transfusion Reactions: No Reported Reaction Past Psychological History: No Psychological Hx Reported Smoking Status: Current every day smoker Past Alcohol Use History: None Reported Past Drug Use History: Marijuana - Past Family History Mother Family Medical History: Coronary Artery Disease (CAD) Medications and Allergies Home Medications Medication Instructions Recorded Confirmed Type amLODIPine BESYLATE/BENAZEPRIL 1 cap PO DAILY 08/22/16 09/17/24 History [Lotrel 10-20 MG] Metoprolol Succinate (ER) [Toprol 100 mg PO DAILY 09/17/24 09/17/24 History Xl] Allergies Allergy/AdvReac Type Severity Reaction Status Date / Time Penicillins Allergy Dyspnea. Verified 09/17/24 08:20 THROAT SWELLING Physical Exam Vitals: Vital Signs Temp Pulse Resp BP Pulse Ox 09/17/24 06:00 89 18 135/89 97 09/17/24 03:15 85 14 137/86 97 09/17/24 00:00 98.7 F 92 21 137/90 97 09/16/24 20:21 97.8 F 101 H 18 131/71 99 09/16/24 19:08 97.2 F L 84 18 137/104 97 Intake and Output 09/16/24 09/17/24 09/17/24 22:59 06:59 14:59 Output Total 13 Balance -13 Output: Post Void Residual 13 Other: Weight 68.039 kg Results 09/17/24 05:19 09/17/24 05:19 Cardiac Enzymes 09/16/24 09/16/24 09/17/24 Range/Units 19:59 21:12 00:25 AST 75 H (14-36) U/L Troponin I 1.700 H* 1.690 H* (0.000-0.034) ng/mL 09/17/24 09/17/24 Range/Units 05:19 05:19 AST 58 H (14-36) U/L Troponin I 1.290 H* (0.000-0.034) ng/mL Coagulation 09/16/24 09/17/24 Range/Units 19:59 05:19 PT 11.9 12.0 (10.0-12.5) sec APTT 22.7 41.7 H (22.0-30.0) sec CBC 09/16/24 09/17/24 Range/Units 19:59 05:19 WBC 26.60 H 23.29 H (4.50-10.00) 10*3/uL RBC 5.71 H 5.01 (4.10-5.20) 10*6/uL Hgb 18.9 H 16.6 H (12.0-15.0) g/dL Hct 52.9 H 47.9 H (37.2-46.3) % Plt Count 357 292 (140-440) 10*3/uL Comprehensive Metabolic Panel 09/16/24 09/17/24 Range/Units 19:59 05:19 Sodium 138 138 (137-145) mmol/L Potassium 4.0 3.8 (3.5-5.1) mmol/L Chloride 98 102 (98-107) mmol/L Carbon Dioxide 20 L 25 (22-30) mmol/L BUN 41 H 53 H (7-17) mg/dL Creatinine 2.12 H 2.23 H (0.52-1.04) mg/dL Glucose 132 H 111 H (74-99) mg/dL Calcium 11.1 H 10.0 (8.4-10.2) mg/dL AST 75 H 58 H (14-36) U/L ALT 40 H 39 H (4-34) U/L Alkaline Phosphatase 133 H 94 (38-126) U/L Total Protein 8.9 H 7.2 (6.3-8.2) g/dL Albumin 5.0 4.0 (3.5-5.0) g/dL Current Medications Generic Name Dose Route Start Last Admin Trade Name Freq PRN Reason Stop Dose Admin Acetaminophen 650 mg 09/16/24 23:21 Acetaminophen Tab 325 Mg Tab PO Q6HR PRN Mild Pain or Fever > 100.5 Hydrocodone Bitart/Acetaminophen 1 each 09/17/24 00:30 09/17/24 06:08 Hydrocodone/Apap 7.5-325mg 1 Each Tab PO 1 each Q6HR [facility] Administration Amlodipine Besylate 10 mg 09/17/24 09:00 Amlodipine 10 Mg Tab PO DAILY [facility] Aspirin 81 mg 09/17/24 09:00 Aspirin 81 Mg PO DAILY [facility] Atorvastatin Calcium 80 mg 09/17/24 21:00 Atorvastatin 80 Mg Tab PO HS [facility] Clopidogrel Bisulfate 75 mg 09/17/24 09:00 Clopidogrel 75 Mg Tab PO DAILY [facility] Ezetimibe 10 mg 09/17/24 09:00 Ezetimibe 10 Mg Tab PO DAILY [facility] Heparin Sodium (Porcine) 0 unit 09/16/24 22:34 Heparin Sodium 1,000 Un/Ml (10ml Vl) IV PER PROTOCOL PRN Low PTT Protocol Heparin Sodium/Sodium Chloride 250 mls @ 8.165 mls/hr 09/16/24 22:45 09/16/24 23:18 25,000 unit/ Sodium Chloride IV 12 units/kg/hr .Q24H TAMIKO 8.165 mls/hr Administration Protocol 12 UNITS/KG/HR Sodium Chloride 1,000 mls @ 75 mls/hr 09/16/24 23:30 09/16/24 23:49 Saline 0.9% IV 75 mls/hr .[id number] TAMIKO Administration Ceftriaxone Sodium 1 gm/ 50 mls @ 100 mls/hr 09/17/24 09:00 Sodium Chloride IVPB Q24HR TAMIKO Protocol Morphine Sulfate 4 mg 09/16/24 23:21 Morphine Sulfate 4 Mg/Ml Syringe IV Q4HR PRN Severe Pain (Scale 7 to 10) Naloxone HCl 0.2 mg 09/16/24 23:21 Naloxone 0.4 Mg/Ml 1 Ml Vial IV Q2M PRN Opioid Reversal Ondansetron HCl 4 mg 09/16/24 23:21 Ondansetron 4 Mg/2 Ml Vial IVP Q8HR PRN Nausea And Vomiting Propranolol HCl 160 mg 09/17/24 09:00 Propranolol La 80 Mg Cap.Sa.24h PO DAILY TAMIKO Intake and Output 09/16/24 09/17/24 09/17/24 22:59 06:59 14:59 Output Total 13 Balance -13 Output: Post Void Residual 13 Other: Weight 68.039 kg 09/17/24 05:19 09/17/24 05:19
[2024-09-17 17:47] LABS: Appearance,Urine Cloudy (Clear); Bilirubin,Urine Negative (Negative); Blood,Urine Moderate (Negative); Color,Urine Light Yellow; Glucose,Urine (UA) Negative (Negative); Ketones,Urine Trace (Negative); Leukocyte Esterase,Urine Small (Negative); Mucus,Urine Rare /hpf; Nitrite,Urine Negative (Negative); PH, Urine 5.5 (5.0-8.0); Protein,Urine 1+ (Negative); RBC,Urine >182 /hpf (0-5); Specific Gravity,Urine 1.016 (1.001-1.035); Squamous Epithelial Cell,Urine 2 /hpf (0-4); Urobilinogen,Urine <2.0 mg/dL (<2.0); WBC,Urine 19 /hpf (0-5)
[2024-09-17] MEDS: ATORVASTATIN 80 MG TAB PO SCH (20:03)
[2024-09-17] MEDS ORDERED: cefTRIAXone 2 GM in DEXTROSE 5% IN WATER 50 ML IVPB SCH (22:00)
[2024-09-18] MEDS: HEPARIN SODIUM 1,000 UN/ML (10ML VL) IV PRN (06:58)
[2024-09-18 07:02] LABS: African American GFR (CKD) 40 (>60 ml/min/1.73 sqM); Anion Gap 11 mmol/L; Blood Urea Nitrogen 47 mg/dL (7-17); Calcium 9.7 mg/dL (8.4-10.2); Carbon Dioxide 24 mmol/L (22-30); Chloride 103 mmol/L (98-107); Glucose 79 mg/dL (74-99); Magnesium 2.1 mg/dL (1.6-2.3); Non-African American GFR(CKD) 35 (>60 ml/min/1.73 sqM); Potassium 3.1 mmol/L (3.5-5.1); Sodium 138 mmol/L (137-145)
[2024-09-18] MEDS ORDERED: HYDROmorphone 0.5 MG/0.5 ML SYRINGE IVP PRN (08:50)
[2024-09-18] MEDS ORDERED: LIDOCAINE 1% (10MG/ML) FOR IV START INTRADERMA PRN (08:50)
[2024-09-18] MEDS ORDERED: METOPROLOL SUCCINATE (ER) 100 MG TAB.ER.24H PO SCH (09:00)
[2024-09-18] MEDS: POTASSIUM CHLORIDE ER 20 MEQ TAB.ER PO ONE (09:02)
[2024-09-18] MEDS: POTASSIUM CHLORIDE ER 20 MEQ TAB.ER PO STA (09:02)
[2024-09-18] MEDS: METOPROLOL SUCCINATE (ER) 50 MG TAB.ER.24H PO SCH (09:02)
--- NOTE | 2024-09-18 09:30 | P.PN ---
Subjective Patient is seen in follow-up for acute kidney injury. Renal function better. Receiving IV fluids. Admits to good urine output. Hemodynamically stable. Vital signs are stable. General: No acute distress. HEENT: Head exam is unremarkable. LUNGS: No audible rhonchi or wheezes. HEART: Rate and Rhythm are regular. ABDOMEN: Nontender. EXTREMITITES: No edema. Objective - Vital Signs Vital signs: Vital Signs Temp 98.1 F 09/18/24 08:00 Pulse 72 09/18/24 08:00 Resp 14 09/18/24 08:00 BP 128/68 09/18/24 08:00 Pulse Ox 96 09/18/24 08:00 FiO2 Intake & Output 09/17/24 09/18/24 09/18/24 18:59 06:59 18:59 Intake Total 218 1074.753 Balance 218 1074.753 Weight 68.039 kg 60 kg Intake: Intake, IV Titration 1074.753 Amount Heparin Sod,Pork in 0.45% 274.753 NaCl 25,000 unit In 0.45 % NaCl 1 250ml.bag @ 12 UNITS/KG/HR 8.165 mls/hr IV .Q24H TAMIKO Rx#: [id number] Sodium Chloride 0.9% 1, 800 000 ml @ 80 mls/hr IV . [id number] TAMIKO Rx#:[id number] Oral 218 Other: Voiding Method Toilet # Voids 1 1 - Labs CBC & Chem 7: 09/17/24 05:19 09/18/24 05:41 Labs: Abnormal Lab Results - Last 24 Hours (Table) 09/17/24 09/18/24 09/18/24 Range/Units 17:30 05:41 05:41 APTT 34.4 H (22.0-30.0) sec Potassium 3.1 L (3.5-5.1) mmol/L BUN 47 H (7-17) mg/dL Creatinine 1.52 H (0.52-1.04) mg/dL Urine Appearance Cloudy H (Clear) Urine Protein 1+ H (Negative) Urine Ketones Trace H (Negative) Urine Blood Moderate H (Negative) Ur Leukocyte Esterase Small H (Negative) Urine RBC >182 H (0-5) /hpf Urine WBC 19 H (0-5) /hpf Urine Mucus Rare H (None) /hpf Assessment and Plan Plan: Assessment: 1. Acute kidney injury secondary to ATN, further worsened with the use of SHI inhibitor. Possible component of obstructive uropathy. Renal function better. Creatinine 1.5 today. Baseline creatinine near 1. 2. Left-sided hydronephrosis with bilateral stones. Urology following. Scheduled for cystoscopy today. 3. Hypercalcemia secondary to volume contraction. Improved with fluids. 4. Benign hypertension. 5. Dizziness possibly from hypovolemia. Improved. 6. Cardiomyopathy with ejection fraction of 40 to 45%. 7. Hypokalemia from poor intake and post ATN diuresis. Plan: Maintain IV fluids. Continue to hold SHI inhibitor. Avoid nephrotoxins. Continue to monitor renal function and urine output. Replace potassium.
--- NOTE | 2024-09-18 10:36 | P.PN ---
Subjective Progress Note Date: 09/18/24 Reason for Consult (text): NSTEMI History of present illness: This is a 69-year-old female patient of Dr. Baum last seen in the office on 10/2021 with past medical history of PAD status post LEAD SHOP OPERATOR of the left SFA in 2016, history of smoking, hypertension, hyperlipidemia, COPD. We have been asked to evaluate the patient for NSTEMI. Patient states she is not sure why she came into the hospital. She notes that she had a migraine headache yesterday. She denies any chest pain at this time but states she had pain yesterday. Patient presented to the hospital according to the ER records for nausea vomiting weakness. Blood pressure 129/86, heart rate 87, pulse ox 96% on room air. Patient seen today in the emergency center waiting for bed on the cardiac stepdown unit. Patient has been started on heparin drip. -EKG: Sinus tachycardia with no acute ST-T wave changes -Chest x-ray: Small right pleural effusion. COPD. -CT abdomen pelvis without contrast: 1.2 cm obstructing distal left ureteral stone within the left hemipelvis. Moderate left hydronephrosis and hydroureter. Multiple bilateral nonobstructing renal stones. -Laboratory studies: WBC 26.6, hemoglobin 18.9, BUN 53 creatinine 2.23. Troponin 1.7, 1.69, 1.29. Magnesium 2.2. Total bilirubin 1.6, AST 75, ALT 40, alkaline phosphatase 133. CK4 139. Cepheid viral panel not detected. -Home cardiac medications: Amlodipine/benazepril 10-20 mg 1 daily, metoprolol succinate 100 mg daily. -Echocardiogram performed in 2020 in the office revealed EF 50%, no LVH. Right ventricle is small and underfilled with abnormal function. Right ventricle is moderately extrinsically compressed. Mild tricuspid regurgitation, mild pulmonary regurgitation. 09/18 Patient seen and examined on the cardiac stepdown unit. A1c 5.6, lipid panel pending. Echocardiogram reveals LV size is normal with moderate concentric LVH, anterior apical septal hypokinesia with mid cavitary gradient. Consider apical ballooning syndrome with concentric LVH. Mild mitral and tricuspid regurgitation. Cannot exclude trivial to small pericardial effusion. Patient continues to have some mental status changes is not able to remember things very well. She denies any chest pain, chest pressure, shortness of breath. Physical examination: Gen: This is six 69-year-old female in no acute distress. VS: reviewed HEENT: Head is atraumatic, normocephalic. Pupils equal, round. Sclerae is anicteric. NECK: Supple. No JVD. LUNGS: Clear to auscultation. No wheezes or rhonchi. No intercostal retractions. HEART: Regular rate and rhythm. No murmur. ABDOMEN: Soft No tenderness. EXTREMITIES: No pedal edema. No calf tenderness. NEUROLOGICAL: Patient is awake, alert and oriented x2. Assessment: Elevated troponins most likely type II with flat pattern Mental status changes Nausea and vomiting Acute kidney injury Obstructive uropathy Moderate left hydronephrosis and hydroureter Elevated liver function test Peripheral vascular disease Hypertension Dyslipidemia COPD Tobacco use Echocardiogram with normal LV size and moderate concentric LVH, anterior apical septal hypokinesia with mid cavitary gradient. Consider apical ballooning syndrome with concentric LVH. This could be stress-induced but patient will d own the line need an ischemic workup completed. Plan to continue medical management for now. Mild mitral and tricuspid regurgitation. , Plan: Increase metoprolol succinate to 150 mg daily to start today Change amlodipine 10 mg to nighttime Continue aspirin 81 mg daily, Lipitor 80 mg daily Continue Zetia 10 mg daily Discontinue heparin drip Obtain lipid panel Patient is cleared to undergo cystoscopy and stent placement scheduled for today. There are no absolute contraindications. At the time of discharge, patient will follow-up with Dr. Baum and arrangements will be made for outpatient ischemic workup Further recommendations to follow based upon clinical course Smoking cessation. Patient will be provided the [place] quit line information at discharge. Nurse practitioner note has been reviewed, I agree with documented findings and plan of care. Patient was seen and examined. A1c is 5.6. Lipid panel is pending. Echocardiogram reveals Objective - Vital Signs Vital signs: Vital Signs Temp 98.1 F 09/18/24 03:59 Pulse 86 09/18/24 03:59 Resp 16 09/18/24 03:59 BP 128/75 09/18/24 03:59 Pulse Ox 96 09/18/24 03:59 FiO2 Intake & Output 09/17/24 09/18/24 09/18/24 18:59 06:59 18:59 Intake Total 218 1074.753 Balance 218 1074.753 Weight 68.039 kg 60 kg Intake: Intake, IV Titration 1074.753 Amount Heparin Sod,Pork in 0.45% 274.753 NaCl 25,000 unit In 0.45 % NaCl 1 250ml.bag @ 12 UNITS/KG/HR 8.165 mls/hr IV .Q24H [facility] Rx#: [id number] Sodium Chloride 0.9% 1, 800 000 ml @ 80 mls/hr IV . [id number] [facility] Rx#:[id number] Oral 218 Other: Voiding Method Toilet # Voids 1 1 - Labs CBC & Chem 7: 09/17/24 05:19 09/18/24 05:41 Labs: Abnormal Lab Results - Last 24 Hours (Table) 09/17/24 09/17/24 09/18/24 Range/Units 05: 17:30 05:41 APTT 34.4 H (22.0-30.0) sec Potassium (3.5-5.1) mmol/L BUN 53 H (7-17) mg/dL Creatinine 2.23 H (0.52-1.04) mg/dL Glucose 111 H (74-99) mg/dL AST 58 H (14-36) U/L ALT 39 H (4-34) U/L Urine Appearance Cloudy H (Clear) Urine Protein 1+ H (Negative) Urine Ketones Trace H (Negative) Urine Blood Moderate H (Negative) Ur Leukocyte Esterase Small H (Negative) Urine RBC >182 H (0-5) /hpf Urine WBC 19 H (0-5) /hpf Urine Mucus Rare H (None) /hpf 09/18/24 Range/Units 05:41 APTT (22.0-30.0) sec Potassium 3.1 L (3.5-5.1) mmol/L BUN 47 H (7-17) mg/dL Creatinine 1.52 H (0.52-1.04) mg/dL Glucose (74-99) mg/dL AST (14-36) U/L ALT (4-34) U/L Urine Appearance (Clear) Urine Protein (Negative) Urine Ketones (Negative) Urine Blood (Negative) Ur Leukocyte Esterase (Negative) Urine RBC (0-5) /hpf Urine WBC (0-5) /hpf Urine Mucus (None) /hpf
[2024-09-18] MEDS: IV FLUID CONTINUATION 1,000 ML IV ONE (11:10)
[2024-09-18] MEDS: DEXAMETHASONE SOD PHOSPHATE 4 MG/ML 1 ML VIAL IV ONE (11:30)
[2024-09-18] MEDS: ONDANSETRON 4 MG/2 ML VIAL IVP ONE (11:30)
[2024-09-18] MEDS ORDERED: MIDAZOLAM 2 MG/2 ML VIAL ONE (11:31)
[2024-09-18] MEDS ORDERED: fentaNYL (PF) 50 MCG/ML 2 ML AMP ONE (11:31)
[2024-09-18] MEDS ORDERED: PROPOFOL 10 MG/ML 20 ML VIAL IV ONE (11:31)
[2024-09-18] MEDS: IOPAMIDOL-370 100ML BTL MISCELLANE ONE (12:04)
--- NOTE | 2024-09-18 12:16 | P.PN ---
Subjective Progress Note Date: 09/18/24 No acute overnight event, creatinine did improve to 1.5. She she is having diffuse abdominal pain. Cardiology to evaluate patient and cleared her for surgery. Objective - Vital Signs Vital signs: Vital Signs Temp 97.8 F 09/18/24 11:10 Pulse 70 09/18/24 11:10 Resp 16 09/18/24 11:10 BP 151/79 09/18/24 11:10 Pulse Ox 98 09/18/24 11:10 FiO2 Intake & Output 09/17/24 09/18/24 09/18/24 18:59 06:59 18:59 Intake Total 218 1074.753 100 Balance 218 1074.753 100 Weight 68.039 kg 60 kg Intake: IV 100 Intake, IV Titration 1074.753 Amount Heparin Sod,Pork in 0.45% 274.753 NaCl 25,000 unit In 0.45 % NaCl 1 250ml.bag @ 12 UNITS/KG/HR 8.165 mls/hr IV .Q24H [facility] Rx#: [id number] Sodium Chloride 0.9% 1, 800 000 ml @ 80 mls/hr IV . [id number] [facility] Rx#:[id number] Oral 218 Other: Voiding Method Toilet Toilet # Voids 1 1 - Constitutional General appearance: Present: no acute distress - Gastrointestinal General gastrointestinal: Present: soft. Absent: distended, tenderness - Labs CBC & Chem 7: 09/17/24 05:19 09/18/24 05:41 Labs: Abnormal Lab Results - Last 24 Hours (Table) 09/17/24 09/18/24 09/18/24 Range/Units 17:30 05:41 05:41 APTT 34.4 H (22.0-30.0) sec Potassium 3.1 L (3.5-5.1) mmol/L BUN 47 H (7-17) mg/dL Creatinine 1.52 H (0.52-1.04) mg/dL Urine Appearance Cloudy H (Clear) Urine Protein 1+ H (Negative) Urine Ketones Trace H (Negative) Urine Blood Moderate H (Negative) Ur Leukocyte Esterase Small H (Negative) Urine RBC >182 H (0-5) /hpf Urine WBC 19 H (0-5) /hpf Urine Mucus Rare H (None) /hpf Assessment and Plan Assessment: 69-year-old female with a history of 1.2 cm left-sided distal stone, and acute kidney injury. Also possible NSTEMI. From urology standpoint she will require a stent insertion given her acute kidney injury and the obstructing stone. Patient was evaluated by cardiology and cleared for surgery. I did discuss with her that the stent would allow the for renal recovery. But did discuss she will eventually require left-sided ureteroscopy with holmium laser. Discussed also given the atrophy of the left kidney there is potential the stone could be im pacted and I may not be able to proceed with stent insertion. -OR for cystoscopy and left stent insertion -Will arrange for left-sided ureteroscopy with holmium laser as an outpatient
--- NOTE | 2024-09-18 12:20 | P.OP ---
Date of Procedure: 09/18/24 Preoperative Diagnosis: Left ureteral stone Postoperative Diagnosis: Same Procedure(s) Performed: Cystoscopy, left ureteroscopy, stent insertion Implants: 6 Welsh by 26 cm stent in the left ureter Anesthesia: JAMEL Surgeon: Frantz Pablo Estimated Blood Loss (ml): 5 Pathology: none sent Condition: stable Disposition: PACU Indications for Procedure: This is a 69-year-old female with history of a 1.2 cm left-sided distal ureteral stone, causing severe hydronephrosis and acute kidney injury. There is a degree of atrophy in the kidney. Discussed with her most likely the stone is impacted, discussed I do recommend proceeding with stent insertion. Risk-benefit and rationale of surgery was discussed in details. Discussed with her she will eventually require left-sided ureteroscopy with holmium laser as an outpatient Description of Procedure: Patient brought to the operating, sedation was induced. She was prepped and draped in sterile fashion placed in dorsolithotomy position. Cystoscopy was performed showed no abnormality within the bladder. The left ureteral orifice was identified, I attempted to advance a sensor wire past the stone but resistance was met, this point a changed to a Glidewire and was still unable to advance the wire past the stone. At this time a semirigid ureteroscope and advanced per urethra and up the left ureteral orifice, large stone was encountered with significant ureteral edema, at this point I was able to navigate a sensor wire past the stone and into the collecting system. At this time the ureteroscope was withdrawn with the wire in place. Next the cystoscope was backloaded over the wire. A ureteral stent was passed over the wire, the proximal curl was visualized on fluoroscopy and the distal curl was realized using cystoscope. Hydronephrotic drip was seen from the stent. Patient was awakened from anesthesia and taken to recovery in stable condition
--- NOTE | 2024-09-18 12:46 | FL ---
EXAMINATION TYPE: FL guidance operating room Intraoperative/procedural fluoroscopic services were pro vided. CLINICAL INDICATION:Female, 69 years old with history of CYSTOSCOPY INS URETERAL STENT; , [facility] FINDINGS: Left ureteral stent placement identified. Lumbar spinal fixation hardware. No radiographic evidence f or complication. Total fluoroscopy time is 24 seconds. DAP: 0.26450 Gycm2 Please see the operative/procedural note for further details. [facility], , 09/18/2024 12:44 PM
--- NOTE | 2024-09-18 14:53 | P.PN ---
Subjective Progress Note Date: 09/18/24 Hospital course: Patient is a very pleasant 69-year-old female with a past medical history of COPD and continued nicotine dependence, hypertension, and peripheral arterial disease. She presented to the emergency department with a chief complaint of chest pain x 4 days accompanied by nausea, vomiting, and shortness of breath. Upon arrival to our facility, patient underwent evaluation in the emergency department. Vital signs upon arrival show blood pressure 137/104, heart rate 84, respiratory rate 18, temp 97.2 F, and SpO2 of 97% on room air. EKG completed showing sinus tachycardia at 101 bpm with no significant T wave or ST abnormality showing no signs of acute ischemia upon personal review and interpretation. Chest x-ray showing small right pleural effusion and hyperinflation with flattening of the diaphragm consistent with COPD. Labs completed and reviewed. CBC showing leukocytosis with WBC count of 26.60 and elevated hemoglobin of 18.9. Coagulation profile normal findings. BMP showing hypocarbia with bicarb of 20, elevated anion gap of 20, and acute kidney injury with BUN of 41, creatinine of 2.12, GFR of 23. Blood glucose was 132. Lactic acid was 1.3. Calcium was elevated at 11.1. Magnesium 2.2. Liver profile showing hyperbilirubinemia with transaminitis with total bili of 1.6, AST of 75, ALT of 40, and alkaline phosphatase of 133. Creatinine kinase also elevated at 439. Troponin elevated at 1.700. Influenza A, influenza B, RSV, and COVID PCR were negative. CT abdomen and pelvis without contrast showing a 1.2 cm obstructing distal left ureteral stone within the left hemipelvis and additional smaller stones within the ureter, moderate prominent left hydronephrosis and hydroureter, and multiple bilateral nonobstructing renal stones. Patient was started on low intensity heparin infusion for treatment of NSTEMI and admitted under our services with consultation to nephrology, urology, and cardiology. Troponins are trended resulting at 1.700, 1.690, and 1.290. Echocardiogram revealed a reduced EF of 40 to 45% with moderate concentric LVH and anteroapical septal hypokinesia with mild cavitary gradient stating consider apical ballooning syndrome, mild mitral and tricuspid regurgitation and trivial to small pericardial effusion. Physical exam: Patient seen and fully evaluated at bedside this morning. She currently reports having no complaints at this time. She is awaiting to be taken down for cys toscopy with stent placement later this morning. She reports that she continues to urinate without any difficulties and denies any chest pain. Patient does report confusion over the last 48 hours. States she is unclear what actually brought her into the hospital in the first place and is just confused over being told that there was concerns that she had a heart attack. Vital signs reviewed and stable. General: Nontoxic, no distress and appears stated age. Derm: Skin warm and dry, normal coloration for ethnicity. Head: Atraumatic, normocephalic and symmetric. Eyes: EOM's intact, no lid lag, and anicteric sclera Mouth: no lip lesions, mucus membranes moist Cardiovascular: regular rate and rhythm with normal S1S2, systolic murmur, positive posterior tibial pulses bilaterally, and cap refill < 2 seconds. Lungs: Respirations even, regular, and unlabored on room air. Lungs CTA bilat erally, no rhonchi, no rales, no wheezing, and no accessory muscle usage. Abdominal: soft, nontender to palpation, no guarding, no appreciable organomegaly Ext: ROM intact. No gross muscle atrophy, no edema, no contractures Neuro: Speech clear, face symmetrical and CN II-XII grossly intact with no noted focal neuro deficits Psych: Alert and oriented to person, place, time, and situation. Appropriate and pleasant affect. Assessment and Plan of Care: NSTEMI Hypertension Hyperlipidemia Peripheral arterial disease - Cardiology following, cardiology CONFIGURATION MANAGEMENT ANALYST. Heparin infusion was discontinued and patient cleared from cardiology perspective to undergo cystoscopy with stent placement later today. Recommending patient follow-up outpatient after discharge with Dr. Baum for outpatient ischemic workup. - Telemetry monitoring - Continue cardiac medication regimen Aspirin 81 mg daily, Plavix 75 mg daily, atorvastatin 80 mg nightly, amlodipine 10 mg nightly, Zetia 10 mg daily, and metoprolol succinate 150 mg daily. - Echocardiogram revealed a reduced EF of 40 to 45% with moderate concentric LVH and anteroapical septal hypokinesia with mild cavitary gradient stating consider apical ballooning syndrome, mild mitral and tricuspid regurgitation and trivial to small pericardial effusion. Obstructive left ureteral stone with left-sided hydronephrosis and hydroureter Acute kidney injury Leukocytosis Hypercalcemia, resolved with IV fluid hydration - Continue IV antibiotics with Rocephin 1 g daily pending urine culture results. - Blood culture showing no growth to date. - Bladder Scan has been negative for significant postvoid residual. - Urology following, taken patient for cystoscopy with stent placement later today.. - Nephrology following, reviewed documentation in chart. - Continued close monitoring with repeat a.m. labs. Transaminitis, improved - Continue close monitoring for improvement/resolution with repeat morning CMP. COPD, not in acute exacerbation Nicotine dependence -Recommend smoking cessation. Continue nicotine patch 21 mg daily. Data and imaging reviewed: - Morning labs reviewed. BMP showing hypokalemia with potassium of 5.1 and was replaced by nephrology. Renal function showing improvement with BUN of 47, creatinine 1.52, GFR of 35. Blood glucose was 79. Magnesium 2.1. Urinalysis positive for protein, trace ketones, moderate blood, small leukocyte esterase, greater than 182 RBCs and 19 WBCs. -Vital signs reviewed. Blood pressure 128/68, heart rate 72, respiratory rate 14, temp 98.1 F, and SpO2 of 96% on room air. -Echocardiogram revealed a reduced EF of 40 to 45% with moderate concentric LVH and anteroapical septal hypokinesia with mild cavitary gradient stating consider apical ballooning syndrome, mild mitral and tricuspid regurgitation and trivial to small pericardial effusion. CODE STATUS: Full code DVT prophylaxis: Heparin Anticipated discharge date: Pending clinical course Anticipated discharge place: Home Patient was seen independently by Nurse Pracitioner. This document was prepared using [employer] dictation software. Please allow for errors in senior business consultant, while rare they do occur. Alejandro Ng NP rendered care for this patient independently, reviewed the findings and plan as documented in the note above and agree with plan. I did not physically speak with or examine the patient on this date. Objective - Vital Signs Vital signs: Vital Signs Temp 98.1 F 09/18/24 03:59 Pulse 86 09/18/24 03:59 Resp 16 09/18/24 03:59 BP 128/75 09/18/24 03:59 Pulse Ox 96 09/18/24 03:59 FiO2 Intake & Output 09/17/24 09/18/24 09/18/24 18:59 06:59 18:59 Intake Total 218 1074.753 Balance 218 1074.753 Weight 68.039 kg 60 kg Intake: Intake, IV Titration 1074.753 Amount Heparin Sod,Pork in 0.45% 274.753 NaCl 25,000 unit In 0.45 % NaCl 1 250ml.bag @ 12 UNITS/KG/HR 8.165 mls/hr IV .Q24H [facility] Rx#: [id number] Sodium Chloride 0.9% 1, 800 000 ml @ 80 mls/hr IV . [id number] [facility] Rx#:[id number] Oral 218 Other: Voiding Method Toilet # Voids 1 1 - Labs CBC & Chem 7: 09/17/24 05:19 09/18/24 05:41 Labs: Abnormal Lab Results - Last 24 Hours (Table) 09/17/24 09/18/24 09/18/24 Range/Units 17:30 05:41 05:41 APTT 34.4 H (22.0-30.0) sec Potassium 3.1 L (3.5-5.1) mmol/L BUN 47 H (7-17) mg/dL Creatinine 1.52 H (0.52-1.04) mg/dL Urine Appearance Cloudy H (Clear) Urine Protein 1+ H (Negative) Urine Ketones Trace H (Negative) Urine Blood Moderate H (Negative) Ur Leukocyte Esterase Small H (Negative) Urine RBC >182 H (0-5) /hpf Urine WBC 19 H (0-5) /hpf Urine Mucus Rare H (None) /hpf
[2024-09-18] MEDS: LACTATED RINGERS 1,000 ML IV SCH (15:38)
[2024-09-18] MEDS: HEPARIN SODIUM,PORCINE 5,000 UNIT/ML 1 ML VIAL SQ SCH (17:19)
[2024-09-18 19:10] LABS: LDL Cholesterol,Calculated 81.2 mg/dL (0.0-131.0)
[2024-09-18] MEDS: amLODIPine 10 MG TAB PO SCH (19:29)
[2024-09-19 07:40] LABS: HCT 43.7 % (37.2-46.3); HGB 14.6 g/dL (12.0-15.0); MCHC 33.4 g/dL (32.0-37.0); MCV 98.6 fL (80.0-97.0); Mean Platelet Volume 10.1 fL (9.5-12.2); Platelet Count 250 10*3/uL (140-440); RBC 4.43 10*6/uL (4.10-5.20); WBC 17.71 10*3/uL (4.50-10.00)
[2024-09-19 07:55] LABS: ALT 42 U/L (4-34); AST 44 U/L (14-36); African American GFR (CKD) 60 (>60 ml/min/1.73 sqM); Alkaline Phosphatase 88 U/L (38-126); Anion Gap 9 mmol/L; Blood Urea Nitrogen 33 mg/dL (7-17); Calcium 9.9 mg/dL (8.4-10.2); Carbon Dioxide 26 mmol/L (22-30); Chloride 106 mmol/L (98-107); Glucose 96 mg/dL (74-99); Magnesium 1.8 mg/dL (1.6-2.3); Non-African American GFR(CKD) 52 (>60 ml/min/1.73 sqM); Potassium 3.7 mmol/L (3.5-5.1); Sodium 141 mmol/L (137-145); Total Bilirubin 1.1 mg/dL (0.2-1.3); Total Protein 6.8 g/dL (6.3-8.2)
--- NOTE | 2024-09-19 09:53 | P.PN ---
Subjective Patient is seen in follow-up for acute kidney injury. Renal function better. Receiving IV fluids. Admits to good urine output. Hemodynamically stable. Vital signs are stable. General: No acute distress. HEENT: Head exam is unremarkable. LUNGS: No audible rhonchi or wheezes. HEART: Rate and Rhythm are regular. ABDOMEN: Nontender. EXTREMITITES: No edema. Objective - Vital Signs Vital signs: Vital Signs Temp 98.2 F 09/19/24 08:22 Pulse 54 L 09/19/24 08:23 Resp 16 09/19/24 08:23 BP 160/68 09/19/24 08:22 Pulse Ox 94 L 09/19/24 08:22 FiO2 Intake & Output 09/18/24 09/19/24 09/19/24 18:59 06:59 18:59 Intake Total 1627 560 250 Output Total 5 300 200 Balance 1622 260 50 Weight 61.3 kg Intake: IV 600 10 Invasive Line 1 10 Intake, IV Titration 850 560 Amount Sodium Chloride 0.9% 1, 800 560 000 ml @ 80 mls/hr IV . [id number] [facility] Rx#:[id number] cefTRIAXone 1 gm In 50 Sodium Chloride 0.9% 50 ml @ 100 mls/hr IVPB Q24HR [facility] Rx#:[id number] Oral 177 240 Output: Urine 300 200 Estimated Blood Loss 5 Other: Voiding Method Toilet Toilet Toilet # Voids 1 - Labs CBC & Chem 7: 09/19/24 07:18 09/19/24 07:18 Labs: Abnormal Lab Results - Last 24 Hours (Table) 09/18/24 09/19/24 09/19/24 Range/Units 05:41 07:18 07:18 WBC 17.71 H (4.50-10.00) 10*3/uL MCV 98.6 H (80.0-97.0) fL MCH 33.0 H (27.0-32.0) pg BUN 33 H (7-17) mg/dL Creatinine 1.09 H (0.52-1.04) mg/dL AST 44 H (14-36) U/L ALT 42 H (4-34) U/L HDL Cholesterol 66.60 H (40.00-60.00) mg/dL Microbiology - Last 24 Hours (Table) 09/17/24 17:30 Urine Culture - Final Urine,Voided 09/17/24 01:05 Blood Culture - Preliminary Blood Assessment and Plan Plan: Assessment: 1. Acute kidney injury secondary to ATN, further worsened with the use of SHI inhibitor. Possible component of obstructive uropathy. Renal function better. Creatinine 1.09 today. Baseline creatinine near 1. 2. Left-sided hydronephrosis with bilateral stones. Urology following. Status post cystoscopy with left ureteral stent insertion September 18, 2024. 3. Hypercalcemia secondary to volume contraction. Improved with fluids. 4. Benign hypertension. 5. Dizziness possibly from hypovolemia. Improved. 6. Cardiomyopathy with ejection fraction of 40 to 45%. 7. Hypokalemia from poor intake and post ATN diuresis. Replaced. Better. Plan: Hep-Lock IV fluids. Resume SHI inhibitor. Avoid nephrotoxins. Continue to monitor renal function and urine output.
[2024-09-19] MEDS ORDERED: HYDROcodone/APAP 7.5-325MG 1 EACH TAB PO PRN (10:32)
[2024-09-19] MEDS: lisinopriL 10 MG TAB PO SCH (10:47)
--- NOTE | 2024-09-19 12:49 | P.PN ---
Subjective Progress Note Date: 09/19/24 Reason for Consult (text): NSTEMI History of present illness: This is a 69-year-old female patient of Dr. Baum last seen in the office on 10/2021 with past medical history of PAD status post COMIC BOOK WRITER of the left SFA in 2016, history of smoking, hypertension, hyperlipidemia, COPD. We have been asked to evaluate the patient for NSTEMI. Patient states she is not sure why she came into the hospital. She notes that she had a migraine headache yesterday. She denies any chest pain at this time but states she had pain yesterday. Patient presented to the hospital according to the ER records for nausea vomiting weakness. Blood pressure 129/86, heart rate 87, pulse ox 96% on room air. Patient seen today in the emergency center waiting for bed on the cardiac stepdown unit. Patient has been started on heparin drip. -EKG: Sinus tachycardia with no acute ST-T wave changes -Chest x-ray: Small right pleural effusion. COPD. -CT abdomen pelvis without contrast: 1.2 cm obstructing distal left ureteral stone within the left hemipelvis. Moderate left hydronephrosis and hydroureter. Multiple bilateral nonobstructing renal stones. -Laboratory studies: WBC 26.6, hemoglobin 18.9, BUN 53 creatinine 2.23. Troponin 1.7, 1.69, 1.29. Magnesium 2.2. Total bilirubin 1.6, AST 75, ALT 40, alkaline phosphatase 133. CK4 139. Cepheid viral panel not detected. -Home cardiac medications: Amlodipine/benazepril 10-20 mg 1 daily, metoprolol succinate 100 mg daily. -Echocardiogram performed in 2020 in the office revealed EF 50%, no LVH. Right ventricle is small and underfilled with abnormal function. Right ventricle is moderately extrinsically compressed. Mild tricuspid regurgitation, mild pulmonary regurgitation. 09/18 Patient seen and examined on the cardiac stepdown unit. A1c 5.6, lipid panel pending. Echocardiogram reveals LV size is normal with moderate concentric LVH, anterior apical septal hypokinesia with mid cavitary gradient. Consider apical ballooning syndrome with concentric LVH. Mild mitral and tricuspid regurgitation. Cannot exclude trivial to small pericardial effusion. Patient continues to have some mental status changes is not able to remember things very well. She denies any chest pain, chest pressure, shortness of breath. 09/19 Patient seen and examined. Blood pressure 146/70, heart rate in the 50s, she has had significant improvement of the renal function with BUN 33 creatinine 1.09. WBC is 17.7. Yesterday, we discontinued heparin drip. Yesterday she also underwent cystoscopy and stent insertion. Triglycerides 126, cholesterol 173, LDL 81. Physical examination: Gen: This is six 69-year-old female in no acute distress. VS: reviewed HEENT: Head is atraumatic, normocephalic. Pupils equal, round. Sclerae is anicteric. NECK: Supple. No JVD. LUNGS: Clear to auscultation. No wheezes or rhonchi. No intercostal retractions. HEART: Regular rate and rhythm. No murmur. ABDOMEN: Soft No tenderness. EXTREMITIES: No pedal edema. No calf tenderness. NEUROLOGICAL: Patient is awake, alert and oriented x2. Assessment: Elevated troponins most likely type II with flat pattern Mental status changes, improved Nausea and vomiting, resolved Acute kidney injury improving Obstructive uropathy Moderate left hydronephrosis and hydroureter Elevated liver function test Peripheral vascular disease Hypertension Dyslipidemia COPD Tobacco use Echocardiogram with normal LV size and moderate concentric LVH, anterior apical septal hypokinesia with mid cavitary gradient. Consider apical ballooning syndrome with concentric LVH. This could be stress-induced but patient will down the line need an ischemic workup completed. Plan to continue medical management for now. Mild mitral and tricuspid regurgitation. Plan: Continue metoprolol succinate 150 mg daily Change amlodipine 10 mg to nighttime Continue aspirin 81 mg daily, Lipitor 80 mg daily Continue Zetia 10 mg daily In a later time, once patient's renal status is stabilized, consider adding and ARB or SHI and discontinuing amlodipine. At the time of discharge, patient will follow-up with Dr. Baum and arrangements will be made for outpatient ischemic workup Further recommendations to follow based upon clinical course Smoking cessation. Patient will be provided the [place] quit line information at discharge. Nurse practitioner note has been reviewed, I agree with documented findings and plan of care. Patient was seen and examined. A1c is 5.6. Lipid panel is pending. Echocardiogram reveals Objective - Vital Signs Vital signs: Vital Signs Temp 98.0 F 09/19/24 03:22 Pulse 59 L 09/19/24 03:22 Resp 15 09/19/24 03:22 BP 146/70 09/19/24 03:22 Pulse Ox 100 09/19/24 03:22 FiO2 Intake & Output 09/18/24 09/19/24 09/19/24 18:59 06:59 18:59 Intake Total 1627 560 240 Output Total 5 300 Balance 1622 260 240 Weight 61.3 kg Intake: IV 600 Intake, IV Titration 850 560 Amount Sodium Chloride 0.9% 1, 800 560 000 ml @ 80 mls/hr IV . [id number] [facility] Rx#:[id number] cefTRIAXone 1 gm In 50 Sodium Chloride 0.9% 50 ml @ 100 mls/hr IVPB Q24HR [facility] Rx#:[id number] Oral 177 240 Output: Urine 300 Estimated Blood Loss 5 Other: Voiding Method Toilet Toilet # Voids 1 - Labs CBC & Chem 7: 09/19/24 07:18 09/19/24 07:18 Labs: Abnormal Lab Results - Last 24 Hours (Table) 09/18/24 09/19/24 09/19/24 Range/Units 05:41 07:18 07:18 WBC 17.71 H (4.50-10.00) 10*3/uL MCV 98.6 H (80.0-97.0) fL MCH 33.0 H (27.0-32.0) pg BUN 33 H (7-17) mg/dL Creatinine 1.09 H (0.52-1.04) mg/dL AST 44 H (14-36) U/L ALT 42 H (4-34) U/L HDL Cholesterol 66.60 H (40.00-60.00) mg/dL Microbiology - Last 24 Hours (Table) 09/17/24 01:05 Blood Culture - Preliminary Blood
--- NOTE | 2024-09-19 15:43 | P.PN ---
Subjective Progress Note Date: 09/19/24 Hospital course: Patient is a very pleasant 69-year-old female with a past medical history of COPD and continued nicotine dependence, hypertension, and peripheral arterial disease. She presented to the emergency department with a chief complaint of chest pain x 4 days accompanied by nausea, vomiting, and shortness of breath. Upon arrival to our facility, patient underwent evaluation in the emergency department. Vital signs upon arrival show blood pressure 137/104, heart rate 84, respiratory rate 18, temp 97.2 F, and SpO2 of 97% on room air. EKG completed showing sinus tachycardia at 101 bpm with no significant T wave or ST abnormality showing no signs of acute ischemia upon personal review and interpretation. Chest x-ray showing small right pleural effusion and hyperinflation with flattening of the diaphragm consistent with COPD. Labs completed and reviewed. CBC showing leukocytosis with WBC count of 26.60 and elevated hemoglobin of 18.9. Coagulation profile normal findings. BMP showing hypocarbia with bicarb of 20, elevated anion gap of 20, and acute kidney injury with BUN of 41, creatinine of 2.12, GFR of 23. Blood glucose was 132. Lactic acid was 1.3. Calcium was elevated at 11.1. Magnesium 2.2. Liver profile showing hyperbilirubinemia with transaminitis with total bili of 1.6, AST of 75, ALT of 40, and alkaline phosphatase of 133. Creatinine kinase also elevated at 439. Troponin elevated at 1.700. Influenza A, influenza B, RSV, and COVID PCR were negative. CT abdomen and pelvis without contrast showing a 1.2 cm obstructing distal left ureteral stone within the left hemipelvis and additional smaller stones within the ureter, moderate prominent left hydronephrosis and hydroureter, and multiple bilateral nonobstructing renal stones. Patient was started on low intensity heparin infusion for treatment of NSTEMI and admitted under our services with consultation to nephrology, urology, and cardiology. Troponins are trended resulting at 1.700, 1.690, and 1.290. Echocardiogram revealed a reduced EF of 40 to 45% with moderate concentric LVH and anteroapical septal hypokinesia with mild cavitary gradient stating consider apical ballooning syndrome, mild mitral and tricuspid regurgitation and trivial to small pericardial effusion. Cardiology evaluated, Heparin infusion was discontinued and patient cleared from cardiology perspective to undergo cystoscopy with stent placement. Room Manager recommending patient follow-up outpatient after discharge with Dr. Baum for outpatient ischemic workup. Physical exam: Patient seen and fully evaluated at bedside this morning. She currently reports having no complaints at this time reports mild flank pain.. She was taken for cystoscopy with stent placement yesterday. She appears to be doing well. Patient has been exhibiting signs of increased confusion throughout hospitalization. RN reports family member stated patient does have a history of dementia however no documented diagnosis on record. Discontinued scheduled [place] as this is likely contributing to patient's confusion/delirium. Patient free from any complaints at this time denies headache, lightheadedness, dizziness, and has no neurological deficits. Discussed with RN if no improvemen t after avoiding opiates and or any worsening of confusion will order CT brain for further evaluation. Vital signs reviewed and stable. General: Nontoxic, no distress and appears stated age. Derm: Skin warm and dry, normal coloration for ethnicity. Head: Atraumatic, normocephalic and symmetric. Eyes: EOM's intact, no lid lag, and anicteric sclera Mouth: no lip lesions, mucus membranes moist Cardiovascular: regular rate and rhythm with normal S1S2, systolic murmur, positive posterior tibial pulses bilaterally, and cap refill < 2 seconds. Lungs: Respirations even, regular, and unlabored on room air. Lungs CTA bilaterally, no rhonchi, no rales, no wheezing, and no accessory muscle usage. Abdominal: soft, nontender to palpation, no guarding, no appreciable organomegaly Ext: ROM intact. No gross muscle atrophy, no edema, no contractures Neuro: Speech clear, face symmetrical and CN II-XII grossly intact with no noted focal neuro deficits Psych: Alert and oriented to person and place but confused to time and situation. Assessment and Plan of Care: NSTEMI Hypertension Hyperlipidemia Peripheral arterial disease - Cardiology following, discussed case with cardiology NECKTIE MAKER. Heparin infusion was discontinued and patient cleared from cardiology perspective to undergo cystoscopy with stent placement. Recommending patient follow-up outpatient after discharge with Dr. Baum for outpatient ischemic workup. - Telemetry monitoring - Continue cardiac medication regimen Aspirin 81 mg daily, Plavix 75 mg daily, atorvastatin 80 mg nightly, amlodipine 10 mg nightly, Zetia 10 mg daily, and metoprolol succinate 150 mg daily. - Echocardiogram revealed a reduced EF of 40 to 45% with moderate concentric LVH and anteroapical septal hypokinesia with mild cavitary gradient stating consider apical ballooning syndrome, mild mitral and tricuspid regurgitation and trivial to small pericardial effusion. Obstructive left ureteral stone with left-sided hydronephrosis and hydroureter Acute kidney injury Leukocytosis Hypercalcemia, resolved with IV fluid hydration - Urine culture negative and blood culture showing no growth to date. Patient received 3-day course of IV antibiotics with Rocephin. - Urology following, took patient for cystoscopy with stent placement 09/18/2024. - Nephrology following, reviewed documentation in chart. - Continued close monitoring with repeat a.m. labs. Transaminitis, improved - AST of 44, ALT of 42, and alkaline phosphatase of 88. Continue close monitoring for improvement/resolution with repeat morning CMP. COPD, not in acute exacerbation Nicotine dependence -Recommend smoking cessation. Continue nicotine patch 21 mg daily. Data and imaging reviewed: - Morning labs reviewed. CBC showing improvement of leukocytosis from previous 23.29 down to 17.71. BMP showing significant improvement and near resolution of acute kidney injury with BUN of 33, creatinine 1.09, GFR 52. Blood glucose was 96. Liver profile showing AST of 44, ALT of 42, and alkaline phosphatase of 88. -Vital signs reviewed. Blood pressure 160/68, heart rate 54, respiratory rate 16, temp 98.2 F, and SpO2 of 94% on room air. CODE STATUS: Full code DVT prophylaxis: Heparin Anticipated discharge date: Pending clinical course Anticipated discharge place: Home Patient was seen independently by Nurse Pracitioner. This document was prepared using [employer] dictation software. Please allow for errors in manager documentation, while rare they do occur. Alejandro Ng NP rendered care for this patient independently, reviewed the fin dings and plan as documented in the note above and agree with plan. I did not physically speak with or examine the patient on this date. Objective - Vital Signs Vital signs: Vital Signs Temp 98.0 F 09/19/24 03:22 Pulse 59 L 09/19/24 03:22 Resp 15 09/19/24 03:22 BP 146/70 09/19/24 03:22 Pulse Ox 100 09/19/24 03:22 FiO2 Intake & Output 09/18/24 09/19/24 09/19/24 18:59 06:59 18:59 Intake Total 1627 560 240 Output Total 5 300 Balance 1622 260 240 Weight 61.3 kg Intake: IV 600 Intake, IV Titration 850 560 Amount Sodium Chloride 0.9% 1, 800 560 000 ml @ 80 mls/hr IV . [id number] [facility] Rx#:[id number] cefTRIAXone 1 gm In 50 Sodium Chloride 0.9% 50 ml @ 100 mls/hr IVPB Q24HR [facility] Rx#:[id number] Oral 177 240 Output: Urine 300 Estimated Blood Loss 5 Other: Voiding Method Toilet Toilet # Voids 1 - Labs CBC & Chem 7: 09/19/24 07:18 09/19/24 07:18 Labs: Abnormal Lab Results - Last 24 Hours (Table) 09/18/24 09/19/24 09/19/24 Range/Units 05:41 07:18 07:18 WBC 17.71 H (4.50-10.00) 10*3/uL MCV 98.6 H (80.0-97.0) fL MCH 33.0 H (27.0-32.0) pg BUN 33 H (7-17) mg/dL Creatinine 1.09 H (0.52-1.04) mg/dL AST 44 H (14-36) U/L ALT 42 H (4-34) U/L HDL Cholesterol 66.60 H (40.00-60.00) mg/dL Microbiology - Last 24 Hours (Table) 09/17/24 17:30 Urine Culture - Final Urine,Voided 09/17/24 01:05 Blood Culture - Preliminary Blood
--- NOTE | 2024-09-19 19:04 | CT ---
EXAMINATION TYPE: CT brain wo con DATE OF EXAM: 09/19/2024 6:47 PM COMPARISON: None. CLINICAL INDICATION: Female, 69 years old with history of altered mental status, ams, confusion TECHNIQUE: CT of the brain is performed utilizing 3 mm thick sections through the posterior fossa and 3 mm thick sections through the remaining calvarium. Study is performed within 24 hours of arrival to the hospital. Contrast used: mL of , (none if empty) CT DLP: 1188.1 mGycm, Automated exposure control for dose reduction was used. FINDINGS: No abnormal hyperdensity is present to suggest an acute intracranial hemorrhage. No mass lesion is evident. No acute infarcts are evident. Chronic appearing periventricular white matter hypodensity is present, likely on the basis of chronic white matter ischemic changes. Ventricles and sulci are prominent for the patient age. Paranasal sinuses and mastoid air cells within the [id number] are clear. IMPRESSION: 1. No acute intracranial process. Follow up MRI can be performed as clinically indicated. 2. Chronic appearing periventricular white matter ischemic changes with atrophy. [facility], Workstation: [email or web address], [place], 09/19/2024 7:01 PM
--- NOTE | 2024-09-19 21:22 | P.PN ---
Subjective Progress Note Date: 09/19/24 Status post left stent insertion, denies any flank pain, creatinine is down to 1 Objective - Vital Signs Vital signs: Vital Signs Temp 98.4 F 09/19/24 10:46 Pulse 46 L 09/19/24 10:46 Resp 16 09/19/24 10:46 BP 154/72 09/19/24 10:46 Pulse Ox 98 09/19/24 10:46 FiO2 Intake & Output 09/18/24 09/19/24 09/19/24 18:59 06:59 18:59 Intake Total 1627 560 260 Output Total 5 300 300 Balance 1622 260 -40 Weight 61.3 kg Intake: IV 600 20 Invasive Line 1 10 Invasive Line 4 10 Intake, IV Titration 850 560 Amount Sodium Chloride 0.9% 1, 800 560 000 ml @ 80 mls/hr IV . [id number] [facility] Rx#:[id number] cefTRIAXone 1 gm In 50 Sodium Chloride 0.9% 50 ml @ 100 mls/hr IVPB Q24HR [facility] Rx#:[id number] Oral 177 240 Output: Urine 300 300 Estimated Blood Loss 5 Other: Voiding Method Toilet Toilet Toilet # Voids 1 - Constitutional General appearance: Present: no acute distress - Gastrointestinal General gastrointestinal: Present: soft. Absent: distended, tenderness - Labs CBC & Chem 7: 09/19/24 07:18 09/19/24 07:18 Labs: Abnormal Lab Results - Last 24 Hours (Table) 09/18/24 09/19/24 09/19/24 Range/Units 05:41 07:18 07:18 WBC 17.71 H (4.50-10.00) 10*3/uL MCV 98.6 H (80.0-97.0) fL MCH 33.0 H (27.0-32.0) pg BUN 33 H (7-17) mg/dL Creatinine 1.09 H (0.52-1.04) mg/dL AST 44 H (14-36) U/L ALT 42 H (4-34) U/L HDL Cholesterol 66.60 H (40.00-60.00) mg/dL Microbiology - Last 24 Hours (Table) 09/17/24 17:30 Urine Culture - Final Urine,Voided 09/17/24 01:05 Blood Culture - Preliminary Blood Assessment and Plan Assessment: 69-year-old female with a history of 1.2 cm left-sided distal stone, and acute kidney injury. Also possible NSTEMI. Underwent left-sided stent insertion yesterday, she is asymptomatic today creatinine continues to trend down, -Will arrange for left-sided ureteroscopy with holmium laser as an outpatient, she is scheduled for left-sided ureteroscopy with holmium laser as an outpatient on October 08. From urology standpoint she is okay for discharge
[2024-09-20 06:11] LABS: HCT 40.1 % (37.2-46.3); HGB 13.5 g/dL (12.0-15.0); MCH 32.6 pg (27.0-32.0); MCHC 33.7 g/dL (32.0-37.0); MCV 96.9 fL (80.0-97.0); Mean Platelet Volume 9.9 fL (9.5-12.2); Platelet Count 219 10*3/uL (140-440); RBC 4.14 10*6/uL (4.10-5.20); RDW 12.9 % (11.5-14.5); WBC 14.15 10*3/uL (4.50-10.00)
[2024-09-20 06:33] LABS: ALT 36 U/L (4-34); AST 37 U/L (14-36); African American GFR (CKD) 60 (>60 ml/min/1.73 sqM); Albumin 3.3 g/dL (3.5-5.0); Alkaline Phosphatase 75 U/L (38-126); Anion Gap 10 mmol/L; Blood Urea Nitrogen 24 mg/dL (7-17); Calcium 9.5 mg/dL (8.4-10.2); Carbon Dioxide 25 mmol/L (22-30); Chloride 105 mmol/L (98-107); Glucose 84 mg/dL (74-99); Magnesium 1.7 mg/dL (1.6-2.3); Non-African American GFR(CKD) 52 (>60 ml/min/1.73 sqM); Potassium 3.4 mmol/L (3.5-5.1); Sodium 140 mmol/L (137-145); Total Bilirubin 0.8 mg/dL (0.2-1.3)
[2024-09-20] MEDS: ACETAMINOPHEN TAB 325 MG TAB PO PRN (08:37)
[2024-09-20] MEDS: POTASSIUM CHLORIDE ER 20 MEQ TAB.ER PO STA (08:38)
[2024-09-20] MEDS: MAGNESIUM SULFATE-D5W PMX 1 GM in DEXTROSE/WATER 1 100ML.BAG IVPB SCH (08:39)
--- NOTE | 2024-09-20 08:56 | P.PN ---
Subjective Progress Note Date: 09/20/24 Reason for Consult (text): NSTEMI History of present illness: This is a 69-year-old female patient of Dr. Baum last seen in the office on 10/2021 with past medical history of PAD status post PIPELINE INTEGRITY ENGINEER of the left SFA in 2016, history of smoking, hypertension, hyperlipidemia, COPD. We have been asked to evaluate the patient for NSTEMI. Patient states she is not sure why she came into the hospital. She notes that she had a migraine headache yesterday. She denies any chest pain at this time but states she had pain yesterday. Patient presented to the hospital according to the ER records for nausea vomiting weakness. Blood pressure 129/86, heart rate 87, pulse ox 96% on room air. Patient seen today in the emergency center waiting for bed on the cardiac stepdown unit. Patient has been started on heparin drip. -EKG: Sinus tachycardia with no acute ST-T wave changes -Chest x-ray: Small right pleural effusion. COPD. -CT abdomen pelvis without contrast: 1.2 cm obstructing distal left ureteral stone within the left hemipelvis. Moderate left hydronephrosis and hydroureter. Multiple bilateral nonobstructing renal stones. -Laboratory studies: WBC 26.6, hemoglobin 18.9, BUN 53 creatinine 2.23. Troponin 1.7, 1.69, 1.29. Magnesium 2.2. Total bilirubin 1.6, AST 75, ALT 40, alkaline phosphatase 133. CK4 139. Cepheid viral panel not detected. -Home cardiac medications: Amlodipine/benazepril 10-20 mg 1 daily, metoprolol succinate 100 mg daily. -Echocardiogram performed in 2020 in the office revealed EF 50%, no LVH. Right ventricle is small and underfilled with abnormal function. Right ventricle is moderately extrinsically compressed. Mild tricuspid regurgitation, mild pulmonary regurgitation. 09/18 Patient seen and examined on the cardiac stepdown unit. A1c 5.6, lipid panel pending. Echocardiogram reveals LV size is normal with moderate concentric LVH, anterior apical septal hypokinesia with mid cavitary gradient. Consider apical ballooning syndrome with concentric LVH. Mild mitral and tricuspid regurgitation. Cannot exclude trivial to small pericardial effusion. Patient continues to have some mental status changes is not able to remember things very well. She denies any chest pain, chest pressure, shortness of breath. 09/19 Patient seen and examined. Blood pressure 146/70, heart rate in the 50s, she has had significant improvement of the renal function with BUN 33 creatinine 1.09. WBC is 17.7. Yesterday, we discontinued heparin drip. Yesterday she also underwent cystoscopy and stent insertion. Triglycerides 126, cholesterol 173, LDL 81. 09/20 Patient seen and examined. Heart rate is running in the 60s, blood pressure 135/74. Patient denies chest pain, palpitations, shortness of breath. Renal function is significantly improved. Physical examination: Gen: This is six 69-year-old female in no acute distress. VS: reviewed HEENT: Head is atraumatic, normocephalic. Pupils equal, round. Sclerae is ani cteric. NECK: Supple. No JVD. LUNGS: Clear to auscultation. No wheezes or rhonchi. No intercostal retractions. HEART: Regular rate and rhythm. No murmur. ABDOMEN: Soft No tenderness. EXTREMITIES: No pedal edema. No calf tenderness. NEUROLOGICAL: Patient is awake, alert and oriented x2. Assessment: Elevated troponins most likely type II with flat pattern Mental status changes, improved Nausea and vomiting, resolved Acute kidney injury improving Obstructive uropathy Moderate left hydronephrosis and hydroureter Elevated liver function test Peripheral vascular disease Hypertension Dyslipidemia COPD Tobacco use Echocardiogram with normal LV size and moderate concentric LVH, anterior apical septal hypokinesia with mid cavitary gradient. Consider apical ballooning syndrome with concentric LVH. This could be stress-induced but patient will down the line need an ischemic workup completed. Plan to continue medical management for now. Mild mitral and tricuspid regurgitation. Plan: Continue metoprolol succinate 150 mg daily Continue amlodipine 10 mg to nighttime Continue aspirin 81 mg daily, Lipitor 80 mg daily Continue Zetia 10 mg daily In a later time, once patient's renal status is stabilized, consider adding and ARB or SHI and discontinuing amlodipine. This will be done as an outpatient At the time of discharge, patient will follow-up with Dr. Baum and arrangements will be made for outpatient ischemic workup Smoking cessation. Patient will be provided the [place] quit line information at discharge. Patient is cleared for discharge from cardiology perspective. Nurse practitioner note has been reviewed, I agree with documented findings and plan of care. Patient was seen and examined. A1c is 5.6. Lipid panel is pending. Echocardiogram reveals Objective - Vital Signs Vital signs: Vital Signs Temp 97.9 F 09/20/24 08:30 Pulse 60 09/20/24 08:30 Resp 16 09/20/24 08:30 BP 135/74 09/20/24 08:30 Pulse Ox 95 09/20/24 08:30 FiO2 Intake & Output 09/19/24 09/20/24 09/20/24 18:59 06:59 18:59 Intake Total 388 740 10 Output Total 400 300 Balance -12 440 10 Weight 61.8 kg Intake: IV 30 10 Invasive Line 1 10 Invasive Line 4 20 10 Oral 358 740 Output: Urine 400 300 Other: Voiding Method Toilet Toilet Toilet # Voids 1 - Labs CBC & Chem 7: 09/20/24 05:56 09/20/24 05:56 Labs: Abnormal Lab Results - Last 24 Hours (Table) 09/20/24 09/20/24 Range/Units 05:56 05:56 WBC 14.15 H (4.50-10.00) 10*3/uL MCH 32.6 H (27.0-32.0) pg Potassium 3.4 L (3.5-5.1) mmol/L BUN 24 H (7-17) mg/dL Creatinine 1.08 H (0.52-1.04) mg/dL AST 37 H (14-36) U/L ALT 36 H (4-34) U/L Total Protein 6.0 L (6.3-8.2) g/dL Albumin 3.3 L (3.5-5.0) g/dL Microbiology - Last 24 Hours (Table) 09/17/24 01:05 Blood Culture - Preliminary Blood 09/17/24 17:30 Urine Culture - Final Urine,Voided
--- NOTE | 2024-09-20 09:52 | P.PN ---
Subjective Patient is seen in follow-up for acute kidney injury. Renal function improved. Off IV fluids. Oral intake is good. Admits to good urine output. Does admit to gross hematuria. Hemodynamically stable. Vital signs are stable. General: No acute distress. HEENT: Head exam is unremarkable. LUNGS: No audible rhonchi or wheezes. HEART: Rate and Rhythm are regular. ABDOMEN: Nontender. EXTREMITITES: No edema. Objective - Vital Signs Vital signs: Vital Signs Temp 97.9 F 09/20/24 08:30 Pulse 60 09/20/24 08:30 Resp 16 09/20/24 08:30 BP 135/74 09/20/24 08:30 Pulse Ox 95 09/20/24 08:30 FiO2 Intake & Output 09/19/24 09/20/24 09/20/24 18:59 06:59 18:59 Intake Total 388 740 10 Output Total 400 300 Balance -12 440 10 Weight 61.8 kg Intake: IV 30 10 Invasive Line 1 10 Invasive Line 4 20 10 Oral 358 740 Output: Urine 400 300 Other: Voiding Method Toilet Toilet Toilet # Voids 1 - Labs CBC & Chem 7: 09/20/24 05:56 09/20/24 05:56 Labs: Abnormal Lab Results - Last 24 Hours (Table) 09/20/24 09/20/24 Range/Units 05:56 05:56 WBC 14.15 H (4.50-10.00) 10*3/uL MCH 32.6 H (27.0-32.0) pg Potassium 3.4 L (3.5-5.1) mmol/L BUN 24 H (7-17) mg/dL Creatinine 1.08 H (0.52-1.04) mg/dL AST 37 H (14-36) U/L ALT 36 H (4-34) U/L Total Protein 6.0 L (6.3-8.2) g/dL Albumin 3.3 L (3.5-5.0) g/dL Microbiology - Last 24 Hours (Table) 09/17/24 01:05 Blood Culture - Preliminary Blood 09/17/24 17:30 Urine Culture - Final Urine,Voided Assessment and Plan Plan: Assessment: 1. Acute kidney injury secondary to ATN, further worsened with the use of SHI inhibitor. Possible component of obstructive uropathy. Renal function better. Creatinine 1.08 today. Baseline creatinine near 1. 2. Left-sided hydronephrosis with bilateral stones. Urology following. Status post cystoscopy with left ureteral stent insertion September 18, 2024. 3. Hypercalcemia secondary to volume contraction. Improved with fluids. 4. Benign hypertension. 5. Dizziness possibly from hypovolemia. Improved. 6. Cardiomyopathy with ejection fraction of 40 to 45%. 7. Hypokalemia from poor intake and post ATN diuresis. Plan: Encouraged oral intake. Avoid nephrotoxins. Continue to monitor renal function and urine output. Replace potassium.
--- NOTE | 2024-09-20 14:14 | P.PN ---
Subjective Progress Note Date: 09/20/24 Hospital course: Patient is a very pleasant 69-year-old female with a past medical history of COPD and continued nicotine dependence, hypertension, and peripheral arterial disease. She presented to the emergency department with a chief complaint of chest pain x 4 days accompanied by nausea, vomiting, and shortness of breath. Upon arrival to our facility, patient underwent evaluation in the emergency department. Vital signs upon arrival show blood pressure 137/104, heart rate 84, respiratory rate 18, temp 97.2 F, and SpO2 of 97% on room air. EKG completed showing sinus tachycardia at 101 bpm with no significant T wave or ST abnormality showing no signs of acute ischemia upon personal review and interpretation. Chest x-ray showing small right pleural effusion and hyperinflation with flattening of the diaphragm consistent with COPD. Labs completed and reviewed. CBC showing leukocytosis with WBC count of 26.60 and elevated hemoglobin of 18.9. Coagulation profile normal findings. BMP showing hypocarbia with bicarb of 20, elevated anion gap of 20, and acute kidney injury with BUN of 41, creatinine of 2.12, GFR of 23. Blood glucose was 132. Lactic acid was 1.3. Calcium was elevated at 11.1. Magnesium 2.2. Liver profile showing hyperbilirubinemia with transaminitis with total bili of 1.6, AST of 75, ALT of 40, and alkaline phosphatase of 133. Creatinine kinase also elevated at 439. Troponin elevated at 1.700. Influenza A, influenza B, RSV, and COVID PCR were negative. CT abdomen and pelvis without contrast showing a 1.2 cm obstructing distal left ureteral stone within the left hemipelvis and additional smaller stones within the ureter, moderate prominent left hydronephrosis and hydroureter, and multiple bilateral nonobstructing renal stones. Patient was started on low intensity heparin infusion for treatment of NSTEMI and admitted under our services with consultation to nephrology, urology, and cardiology. Troponins are trended resulting at 1.700, 1.690, and 1.290. Echocardiogram revealed a reduced EF of 40 to 45% with moderate concentric LVH and anteroapical septal hypokinesia with mild cavitary gradient stating consider apical ballooning syndrome, mild mitral and tricuspid regurgitation and trivial to small pericardial effusion. Cardiology evaluated, Heparin infusion was discontinued and patient cleared from cardiology perspective to undergo cystoscopy with stent placement. Patient Navigator recommending patient follow-up outpatient after discharge with Dr. Baum for outpatient ischemic workup. Physical exam: Patient seen and fully evaluated at bedside this morning. Patient is improving but she continues to have episodes of memory loss. Discussed with patient and RN, will monitor mentation for an additional 24 hours and likely plan on discharge home with family tomorrow morning. Patient lives with and daughter. They do report an underlying history of mild dementia and current confusion possibly secondary to hospital delirium. Family in agreement for additional night hospitalization and will plan for discharge tomorrow morning. Vital signs reviewed and stable. General: Nontoxic, no distress and appears stated age. Derm: Skin warm and dry, normal coloration for ethnicity. Head: Atraumatic, normocephalic and symmetric. Eyes: EOM's intact, no lid lag, and anicteric sclera Mouth: no lip lesions, mucus membranes moist Cardiovascular: regular rate and rhythm with normal S1S2, systolic murmur, positive posterior tibial pulses bilaterally, and cap refill < 2 seconds. Lungs: Respirations even, regular, and unlabored on room air. Lungs CTA bilaterally, no rhonchi, no rales, no wheezing, and no accessory muscle usage. Abdominal: soft, nontender to palpation, no guarding, no appreciable organomegaly Ext: ROM intact. No gross muscle atrophy, no edema, no contractures Neuro: Speech clear, face symmetrical and CN II-XII grossly intact with no noted focal neuro deficits Psych: Alert and oriented to person place, and time but confused to situation. Assessment and Plan of Care: NSTEMI Hypertension Hyperlipidemia Peripheral arterial disease - Cardiology following, discussed case with cardiology INVENTORY CONTROLLER. Cardiac perspective, recommending patient follow-up outpatient after discharge with Dr. Baum for outpatient ischemic workup after discharge. - Telemetry monitoring - Continue cardiac medication regimen Aspirin 81 mg daily, Plavix 75 mg daily, atorvastatin 80 mg nightly, amlodipine 10 mg nightly, Zetia 10 mg daily, and metoprolol succinate 150 mg daily. - Echocardiogram revealed a reduced EF of 40 to 45% with moderate concentric LVH and anteroapical septal hypokinesia with mild cavitary gradient stating consider apical ballooning syndrome, mild mitral and tricuspid regurgitation and trivial to small pericardial effusion. Altered mental status/delirium, likely secondary to hospital delirium and is improving - Discontinued opioid pain medication. - CT brain was completed and was negative for acute intracranial process as showing chronic appearing periventricular white matter ischemic changes with atrophy. - Continue to provide safe and supportive care with assistance and redirection as needed. - Maintain fall precautions. Obstructive left ureteral stone with left-sided hydronephrosis and hydroureter Acute kidney injury Leukocytosis Hypercalcemia, resolved with IV fluid hydration - Urine culture negative and blood culture showing no growth to date. Patient received 3-day course of IV antibiotics with Rocephin. - Urology following, took patient for cystoscopy with stent placement 09/18/2024. - Nephrology following, reviewed documentation in chart. - Continued close monitoring with repeat a.m. labs. Transaminitis, improved - AST of 44, ALT of 42, and alkaline phosphatase of 88. Continue close monitoring for improvement/resolution with repeat morning CMP. COPD, not in acute exacerbation Nicotine dependence -Recommend smoking cessation. Continue nicotine patch 21 mg daily. Data and imaging reviewed: - Morning labs reviewed. CBC showing improvement of leukocytosis from previous 23.29 down to 14.15. BMP showing hypokalemia with potassium 3.4, BUN of 24, creatinine 1.08, and GFR 52. Blood glucose 84. Magnesium 1.7. Liver profile showing continued improvement with AST of 37, ALT of 36, and alkaline phosphatase of 75. -Vital signs reviewed. Blood pressure 159/77, heart rate 62, respiratory rate 20, temp 98.6 F, and SpO2 of 99% on room air. - CT brain was completed and was negative for acute intracranial process as showing chronic appearing periventricular white matter ischemic changes with atrophy. CODE STATUS: Full code DVT prophylaxis: Heparin Anticipated discharge date: Likely tomorrow morning Anticipated discharge place: Home Patient was seen independently by Nurse Pracitioner. This document was prepared using [employer] dictation software. Please allow for errors in service unit operator oil well, while rare they do occur. Alejandro Ng NP rendered care for this patient independently, reviewed the findings and plan as documented in the note above and agree with plan. I did not physically speak with or examine the patient on this date. Objective - Vital Signs Vital signs: Vital Signs Temp 98.6 F 09/20/24 03:14 Pulse 62 09/20/24 03:14 Resp 20 09/20/24 03:14 BP 159/77 09/20/24 03:14 Pulse Ox 99 09/20/24 03:14 FiO2 Intake & Output 05/01/0609/20/24 09/20/24 18:59 06:59 18:59 Intake Total 388 740 Output Total 400 300 Balance -12 440 Weight 61.8 kg Intake: IV 30 Invasive Line 1 10 Invasive Line 4 20 Oral 358 740 Output: Urine 400 300 Other: Voiding Method Toilet Toilet # Voids 1 - Labs CBC & Chem 7: 09/20/24 05:56 09/20/24 05:56 Labs: Abnormal Lab Results - Last 24 Hours (Table) 09/20/24 09/20/24 Range/Units 05:56 05:56 WBC 14.15 H (4.50-10.00) 10*3/uL MCH 32.6 H (27.0-32.0) pg Potassium 3.4 L (3.5-5.1) mmol/L BUN 24 H (7-17) mg/dL Creatinine 1.08 H (0.52-1.04) mg/dL AST 37 H (14-36) U/L ALT 36 H (4-34) U/L Total Protein 6.0 L (6.3-8.2) g/dL Albumin 3.3 L (3.5-5.0) g/dL Microbiology - Last 24 Hours (Table) 09/17/24 01:05 Blood Culture - Preliminary Blood 09/17/24 17:30 Urine Culture - Final Urine,Voided
--- NOTE | 2024-09-20 14:18 | P.PN ---
Subjective Progress Note Date: 09/20/24 No acute overnight event, urine culture showing no growth. Her creatinine is stable at 1.08. Denies any flank pain Objective - Vital Signs Vital signs: Vital Signs Temp 97.8 F 09/20/24 11:15 Pulse 59 L 09/20/24 11:15 Resp 16 09/20/24 11:15 BP 157/93 09/20/24 11:15 Pulse Ox 97 09/20/24 11:15 FiO2 Intake & Output 09/19/24 09/20/24 09/20/24 18:59 06:59 18:59 Intake Total 388 740 338 Output Total 400 300 Balance -12 440 338 Weight 61.8 kg Intake: IV 30 20 Invasive Line 1 10 Invasive Line 4 20 20 Intake, IV Titration 200 Amount Magnesium Sulfate-D5w Pmx 200 1 gm In Dextrose/Water 1 100ml.bag @ 100 mls/hr IVPB Q1H [facility] Rx#: [id number] Oral 358 740 118 Output: Urine 400 300 Other: Voiding Method Toilet Toilet Toilet # Voids 1 1 - Constitutional General appearance: Present: no acute distress - Gastrointestinal General gastrointestinal: Present: soft. Absent: distended, tenderness - Labs CBC & Chem 7: 09/20/24 05:56 09/20/24 05:56 Labs: Abnormal Lab Results - Last 24 Hours (Table) 09/20/24 09/20/24 Range/Units 05:56 05:56 WBC 14.15 H (4.50-10.00) 10*3/uL MCH 32.6 H (27.0-32.0) pg Potassium 3.4 L (3.5-5.1) mmol/L BUN 24 H (7-17) mg/dL Creatinine 1.08 H (0.52-1.04) mg/dL AST 37 H (14-36) U/L ALT 36 H (4-34) U/L Total Protein 6.0 L (6.3-8.2) g/dL Albumin 3.3 L (3.5-5.0) g/dL Microbiology - Last 24 Hours (Table) 09/17/24 01:05 Blood Culture - Preliminary Blood Assessment and Plan Assessment: 69-year-old female with a history of 1.2 cm left-sided distal stone, and acute kidney injury. Also possible NSTEMI. Underwent left-sided stent insertion 09/18, she is asymptomatic today creatinine stable at 1.09, -Will arrange for left-sided ureteroscopy with holmium laser as an outpatient, she is scheduled for left-sided ureteroscopy with holmium laser as an outpatient on October 08. -From urology standpoint she is okay for discharge
[2024-09-21 04:48] VITALS: RESP 17
[2024-09-21 09:21] LABS: HGB 15.2 g/dL (12.0-15.0); MCH 32.5 pg (27.0-32.0); MCV 98.3 fL (80.0-97.0); Mean Platelet Volume 10.3 fL (9.5-12.2); Platelet Count 232 10*3/uL (140-440); RBC 4.68 10*6/uL (4.10-5.20); WBC 14.41 10*3/uL (4.50-10.00)
[2024-09-21 09:36] LABS: ALT 40 U/L (4-34); AST 37 U/L (14-36); African American GFR (CKD) 75 (>60 ml/min/1.73 sqM); Albumin 4.2 g/dL (3.5-5.0); Alkaline Phosphatase 87 U/L (38-126); Anion Gap 8 mmol/L; Blood Urea Nitrogen 17 mg/dL (7-17); Calcium 9.9 mg/dL (8.4-10.2); Carbon Dioxide 28 mmol/L (22-30); Chloride 106 mmol/L (98-107); Glucose 102 mg/dL (74-99); Non-African American GFR(CKD) 65 (>60 ml/min/1.73 sqM); Potassium 3.7 mmol/L (3.5-5.1); Sodium 142 mmol/L (137-145); Total Bilirubin 1.1 mg/dL (0.2-1.3); Total Protein 7.3 g/dL (6.3-8.2)
[2024-09-21 11:34] VITALS: BP 150/77; TEMP 98.1
--- NOTE | 2024-09-21 11:39 | P.PN ---
Subjective Patient is seen for follow-up for acute kidney injury. Renal function has improved. No significant complaints today Serum creatinine down to 0.9 mg/dL. Objective - Vital Signs Vital signs: Vital Signs Temp 98.1 F 09/21/24 11:33 Pulse 53 L 09/21/24 11:33 Resp 17 09/21/24 11:33 BP 150/77 09/21/24 11:33 Pulse Ox 99 09/21/24 11:33 FiO2 Intake & Output 09/20/24 09/21/24 09/21/24 18:59 06:59 18:59 Intake Total 338 20 190 Output Total 450 Balance 338 -430 190 Weight 59.6 kg Intake: IV 20 20 10 Invasive Line 4 20 20 10 Intake, IV Titration 200 Amount Magnesium Sulfate-D5w Pmx 200 1 gm In Dextrose/Water 1 100ml.bag @ 100 mls/hr IVPB Q1H [facility] Rx#: [id number] Oral 118 180 Output: Urine 450 Other: Voiding Method Toilet Toilet Toilet # Voids 1 - Exam Patient is awake, comfortable, no acute distress Examination of the heart S1 and S2 Examination of the lungs bilateral breath sounds are heard Abdomen is soft nontender Examination lower extremity shows no edema SUPPLIER ENGINEER exam grossly intact - Labs CBC & Chem 7: 09/21/24 08:42 09/21/24 08:42 Labs: Abnormal Lab Results - Last 24 Hours (Table) 09/21/24 09/21/24 Range/Units 08:42 08:42 WBC 14.41 H (4.50-10.00) 10*3/uL Hgb 15.2 H (12.0-15.0) g/dL MCV 98.3 H (80.0-97.0) fL MCH 32.5 H (27.0-32.0) pg Glucose 102 H (74-99) mg/dL AST 37 H (14-36) U/L ALT 40 H (4-34) U/L Microbiology - Last 24 Hours (Table) 09/17/24 01:05 Blood Culture - Preliminary Blood Assessment and Plan Assessment: 1. Acute kidney injury secondary to ATN, further worsened with the use of SHI inhibitor. Possible component of obstructive uropathy. Renal function better. Creatinine 0.9 today. Baseline creatinine near 1. 2. Left-sided hydronephrosis with bilateral stones. Urology following. Status post cystoscopy with left ureteral stent insertion September 18, 2024. 3. Hypercalcemia secondary to volume contraction. Improved with fluids. 4. Benign hypertension. 5. Dizziness possibly from hypovolemia. Improved. 6. Cardiomyopathy with ejection fraction of 40 to 45%. 7. Hypokalemia from poor intake and post ATN diuresis. Plan: Patient is stable for discharge from nephrology standpoint. Maintain increased fluid intake Check 24-hour urine for stone profile as outpatient in the next 1 to 2 months.
--- NOTE | 2024-09-21 13:33 | P.PN ---
Subjective Progress Note Date: 09/21/24 Hospital course: Patient is a very pleasant 69-year-old female with a past medical history of COPD and continued nicotine dependence, hypertension, and peripheral arterial disease. She presented to the emergency department with a chief complaint of chest pain x 4 days accompanied by nausea, vomiting, and shortness of breath. Upon arrival to our facility, patient underwent evaluation in the emergency department. Vital signs upon arrival show blood pressure 137/104, heart rate 84, respiratory rate 18, temp 97.2 F, and SpO2 of 97% on room air. EKG completed showing sinus tachycardia at 101 bpm with no significant T wave or ST abnormality showing no signs of acute ischemia upon personal review and interpretation. Chest x-ray showing small right pleural effusion and hyperinflation with flattening of the diaphragm consistent with COPD. Labs completed and reviewed. CBC showing leukocytosis with WBC count of 26.60 and elevated hemoglobin of 18.9. Coagulation profile normal findings. BMP showing hypocarbia with bicarb of 20, elevated anion gap of 20, and acute kidney injury with BUN of 41, creatinine of 2.12, GFR of 23. Blood glucose was 132. Lactic acid was 1.3. Calcium was elevated at 11.1. Magnesium 2.2. Liver profile showing hyperbilirubinemia with transaminitis with total bili of 1.6, AST of 75, ALT of 40, and alkaline phosphatase of 133. Creatinine kinase also elevated at 439. Troponin elevated at 1.700. Influenza A, influenza B, RSV, and COVID PCR were negative. CT abdomen and pelvis without contrast showing a 1.2 cm obstructing distal left ureteral stone within the left hemipelvis and additional smaller stones within the ureter, moderate prominent left hydronephrosis and hydroureter, and multiple bilateral nonobstructing renal stones. Patient was started on low intensity heparin infusion for treatment of NSTEMI and admitted under our services with consultation to nephrology, urology, and cardiology. Troponins are trended resulting at 1.700, 1.690, and 1.290. Echocardiogram revealed a reduced EF of 40 to 45% with moderate concentric LVH and anteroapical septal hypokinesia with mild cavitary gradient stating consider apical ballooning syndrome, mild mitral and tricuspid regurgitation and trivial to small pericardial effusion. Cardiology evaluated, Heparin infusion was discontinued and patient cleared from cardiology perspective to undergo cystoscopy with stent placement. Hazardous Materials Driver recommending patient follow-up outpatient after discharge with Dr. Baum for outpatient ischemic workup. Physical exam: Patient seen and fully evaluated at bedside this morning. Patient is improving but she continues to have a period of memory loss with being unable to recall events over the last 3-6 months. Pt otherwise alert and oriented to person, place, time, and situation at this time. Patient would like to go home today and has been cleared by urology, cardiology, and nephrology. Awaiting clearance from neurology and plan is for discharge later today. Vital signs reviewed and stable. General: Nontoxic, no distress and appears stated age. Derm: Skin warm and dry, normal coloration for ethnicity. Head: Atraumatic, normocephalic and symmetric. Eyes: EOM's intact, no lid lag, and anicteric sclera Mouth: no lip lesions, mucus membranes moist Cardiovascular: regular rate and rhythm with normal S1S2, systolic murmur, positive posterior tibial pulses bilaterally, and cap refill < 2 seconds. Lungs: Respirations even, regular, and unlabored on room air. Lungs CTA bilaterally, no rhonchi, no rales, no wheezing, and no accessory muscle usage. Abdominal: soft, nontender to palpation, no guarding, no appreciable organomegaly Ext: ROM intact. No gross muscle atrophy, no edema, no contractures Neuro: Speech clear, face symmetrical and CN II-XII grossly intact with no noted focal neuro deficits Psych: Alert and oriented to person place, and time but confused to situation. Assessment and Plan of Care: NSTEMI Hypertension Hyperlipidemia Peripheral arterial disease - Cardiology following, discussed case with cardiology NATIONAL SECRETARY. Cardiac perspective, recommending patient follow-up outpatient after discharge with Dr. Baum for outpatient ischemic workup after discharge. - Telemetry monitoring - Continue cardiac medication regimen Aspirin 81 mg daily, Plavix 75 mg daily, atorvastatin 80 mg nightly, amlodipine 10 mg nightly, Zetia 10 mg daily, and metoprolol succinate 150 mg daily. - Echocardiogram revealed a reduced EF of 40 to 45% with moderate concentric LVH and anteroapical septal hypokinesia with mild cavitary gradient stating consider apical ballooning syndrome, mild mitral and tricuspid regurgitation and trivial to small pericardial effusion. Altered mental status/delirium, transient global amnesia - Discontinued opioid pain medication. - CT brain was completed and was negative for acute intracranial process as showing chronic appearing periventricular white matter ischemic changes with atrophy. - Continue to provide safe and supportive care with assistance and redirection as needed. - Maintain fall precautions. - Neurology consulted, awaiting clearance for discharge Obstructive left ureteral stone with left-sided hydronephrosis and hydroureter Acute kidney injury Leukocytosis Hypercalcemia, resolved with IV fluid hydration - Urine culture negative and blood culture showing no growth to date. Patient received 3-day course of IV antibiotics with Rocephin. - Urology following, took patient for cystoscopy with stent placement 09/18/2024. - Nephrology following, reviewed documentation in chart. - Continued close monitoring with repeat a.m. labs. Transaminitis, improved - AST of 44, ALT of 42, and alkaline phosphatase of 88. Continue close monitor ing for improvement/resolution with repeat morning CMP. COPD, not in acute exacerbation Nicotine dependence -Recommend smoking cessation. Continue nicotine patch 21 mg daily. Data and imaging reviewed: - Morning labs reviewed. CBC showing improvement of leukocytosis from previous 23.29 down to 14.41. BMP showing full resolution of acute kidney injury with BUN of 17, creatinine 0.90, GFR of 65. Blood glucose was 102. Calcium 9.9. Magnesium 2.0. Liver profile showing continued elevated but stable liver function with total bili of 1.1, AST of 37, ALT of 40, and alkaline phosphatase of 87. -Vital signs reviewed. Blood pressure 136/76, heart rate 61, respiratory rate 17, temp 98.4 F, and SpO2 of 99% on room air. CODE STATUS: Full code DVT prophylaxis: Heparin Anticipated discharge date: Likely tomorrow morning Anticipated discharge place: Home Patient was seen independently by Nurse Pracitioner. This document was prepared using [employer] dictation software. Please allow for errors in patternmaker bench, while rare they do occur. Alejandro Ng NP rendered care for this patient independently, reviewed the findings and plan as documented in the note above and agree with plan. I did not physically speak with or examine the patient on this date. Objective - Vital Signs Vital signs: Vital Signs Temp 98.4 F 09/21/24 04:45 Pulse 59 L 09/21/24 04:45 Resp 17 09/21/24 04:45 BP 146/77 09/21/24 04:45 Pulse Ox 100 09/21/24 04:45 FiO2 Intake & Output 09/20/24 09/21/24 09/21/24 18:59 06:59 18:59 Intake Total 338 20 Output Total 450 Balance 338 -430 Weight 59.6 kg Intake: IV 20 20 Invasive Line 4 20 20 Intake, IV Titration 200 Amount Magnesium Sulfate-D5w Pmx 200 1 gm In Dextrose/Water 1 100ml.bag @ 100 mls/hr IVPB Q1H [facility] Rx#: [id number] Oral 118 Output: Urine 450 Other: Voiding Method Toilet Toilet # Voids 1 - Labs CBC & Chem 7: 09/21/24 08:42 09/21/24 08:42 Labs: Microbiology - Last 24 Hours (Table) 09/17/24 01:05 Blood Culture - Preliminary Blood
--- NOTE | 2024-09-21 13:36 | P.CNNES ---
History of Present Illness Consult date: 09/21/24 Reason for Consult: Altered mental status, transient global amnesia History of Present Illness: The patient is a 69-year-old female who was seen in neurologic consultation on September 21, 2024, in collaboration with Rosi Pradhan, via teleneurology. History is obtained from review of the chart. The patient has difficulty providing history. She reports that she has a "clouded mind". The patient does report feeling better today. In review of the chart, the patient reportedly came into the emergency department because of concerns regarding chest pain. The pain had been going on for about 4 days. There was no relief with Aleve. Chest x-ray revealed a small pleural effusion. There was also noted to be evidence of acute kidney injury secondary to obstructive kidney stone. The patient herself is unable to provide this information. She says she does not remember coming into the hospital. She does not remember other events which occurred in this past year. According to the patient, she had no difficulty with her memory, prior to coming in the hospital. She says she was occasionally forgetful. The patient reports being able to remember what she has been told, from nursing and family, since admission. The most disturbing thing for the patient however, is that she does not recall her father dying last year and does not recall spending time with him last year. According to nursing as well as hospitalists and family, the patient has become more confused since she was admitted to the hospital. 1 note reports that the p jayjay does have a history, per family, of dementia. This reportedly has not been formally diagnosed. Because of increasing confusion, CT scan of the brain was performed. There is no reported evidence of acute hemorrhage or infarct. There is evidence of chronic ischemic white matter and atrophy. These images have been personally viewed. Upon admission, the patient's BUN and creatinine were both elevated. They are trending downward. Liver enzymes were also elevated on admission and are tren ding downward. White blood cell count was elevated on admission and has trended downward. Past Medical History Past Medical History: Hypertension, Vascular Disorder Additional Past Medical History / Comment(s): CHRONIC MIGRAINES, chronic back pain, hx. fx. knee cap 2015 that affects her gait & back, hx. R kidney stones, hematuria, UTIs, urinary incontinence. History of Any Multi-Drug Resistant Organisms: None Reported Past Surgical History: Cholecystectomy, Orthopedic Surgery, Tonsillectomy Additional Past Surgical History / Comment(s): 12/09/14 Patella tendon repair and removal inferior patellar fragments. ORIF LEFT WRIST, LITHOTRIPSY & NEPHROLITHOTOMY, 2012 stone removal from ureter, recent aortogram Past Anesthesia/Blood Transfusion Reactions: No Reported Reaction Past Psychological History: No Psychological Hx Reported Additional Psychological History / Comment(s): Pt resides with her spouse. She is normally independent. Smoking Status: Current every day smoker Past Alcohol Use History: None Reported Additional Past Alcohol Use History / Comment(s): quit smoking 4--, 1 ppd smoker since age of 19 Past Drug Use History: Marijuana Additional Drug Use History / Comment(s): used to use occasionally for nausea related to migraines, but hasn't used for 6 months - Past Family History Mother Family Medical History: Coronary Artery Disease (CAD) Medications and Allergies Home Medications Medication Instructions Recorded Confirmed Type amLODIPine BESYLATE/BENAZEPRIL 1 cap PO DAILY 08/22/16 09/17/24 History [Lotrel 10-20 MG] Metoprolol Succinate (ER) [Toprol 100 mg PO DAILY 09/17/24 09/17/24 History Xl] Allergies Allergy/AdvReac Type Severity Reaction Status Date / Time Penicillins Allergy Dyspnea. Verified 09/18/24 11:36 THROAT SWELLING Physical Examination - Vital Signs Vital Signs: Vital Signs Temp Pulse Pulse Resp BP Pulse Ox 09/21/24 11:33 98.1 F 53 L 17 150/77 99 09/21/24 08:15 98.4 F 62 61 17 136/76 99 09/21/24 04:45 98.4 F 59 L 17 146/77 100 09/20/24 23:25 98.1 F 58 L 18 145/70 100 09/20/24 20:15 98.1 F 58 L 17 154/77 98 09/20/24 15:56 98.0 F 60 16 161/97 97 Intake and Output 09/20/24 09/21/24 09/21/24 22:59 06:59 14:59 Intake Total 10 10 190 Output Total 250 200 Balance -240 -190 190 Intake: IV 10 10 10 Invasive Line 4 10 10 10 Oral 180 Output: Urine 250 200 Other: Voiding Method Toilet Toilet Toilet Weight 59.6 kg General: Patient is reclining in the bed. She is well-nourished, well-developed and in no acute distress. HEENT: Head is atraumatic, normocephalic. Fundus not visualized. There is no scleral icterus. Mucous membranes are moist. Neck: Supple without carotid bruits Heart: Regular rate rhythm Lungs: Clear to auscultation Extremities: Without edema Neurological examination Mental status: Patient is awake, alert and oriented x 3. The patient is able to answer questions regarding the reason for her admission however, her answers are markedly limited. The patient is oriented to the current year, month, president, year is . She is unable to recall the year that she and her got . Speech is clear. There is no dysarthria or aphasia. Cranial nerves: Pupils are equal at 3 mm and reactive. Visual orourke are full to confrontation. Extraocular movements are intact. There is no nystagmus. Facial sensation is intact. There is no facial asymmetry. Hearing is grossly intact. Uvula and palate are midline. Shoulder shrug is symmetric. Tongue protrudes midline. Motor: Strength is 5/5 throughout. Coordination: [id number], rapid alternating movements are intact. There is no pronator drift. [id number] testing is intact. Sensation: Grossly intact to light touch throughout. There is no extinction with double simultaneous stimulation. Deep tendon reflexes: 2+/4+ throughout, with the exception of the right patellar reflex, which is absent. Plantar responses are flexor bilaterally. Gait: Not assessed Results - Laboratory Findings CBC and BMP: 09/21/24 08:42 09/21/24 08:42 Abnormal Lab Findings: Abnormal Labs 09/16/24 09/16/24 09/16/24 19:59 19:59 19:59 WBC 26.60 H RBC 5.71 H Hgb 18.9 H Hct 52.9 H MCV MCH 33.1 H Immature Gran # 0.20 H Neutrophils # 22.03 H Neutrophils # (Manual) Monocytes # 1.89 H Monocytes # (Manual) Eosinophils # 0.01 L APTT Potassium Carbon Dioxide 20 L BUN 41 H Creatinine 2.12 H Glucose 132 H POC Glucose (mg/dL) Calcium 11.1 H Total Bilirubin 1.6 H AST 75 H ALT 40 H Alkaline Phosphatase 133 H Creatine Kinase 439 H Troponin I Total Protein 8.9 H Albumin HDL Cholesterol Urine Appearance Urine Protein Urine Ketones Urine Blood Ur Leukocyte Esterase Urine RBC Urine WBC Urine Mucus 09/16/24 09/16/24 09/17/24 21:12 22:35 00:25 WBC RBC Hgb Hct MCV MCH Immature Gran # Neutrophils # Neutrophils # (Manual) Monocytes # Monocytes # (Manual) Eosinophils # APTT Potassium Carbon Dioxide BUN Creatinine Glucose POC Glucose (mg/dL) 119 H Calcium Total Bilirubin AST ALT Alkaline Phosphatase Creatine Kinase Troponin I 1.700 H* 1.690 H* Total Protein Albumin HDL Cholesterol Urine Appearance Urine Protein Urine Ketones Urine Blood Ur Leukocyte Esterase Urine RBC Urine WBC Urine Mucus 09/17/24 09/17/24 09/17/24 05:19 05:19 05:19 WBC 23.29 H RBC Hgb 16.6 H Hct 47.9 H MCV MCH 33.1 H Immature Gran # 0.08 H Neutrophils # Neutrophils # (Manual) 19.56 H Monocytes # Monocytes # (Manual) 2.33 H Eosinophils # APTT 41.7 H Potassium Carbon Dioxide BUN Creatinine Glucose POC Glucose (mg/dL) Calcium Total Bilirubin AST ALT Alkaline Phosphatase Creatine Kinase Troponin I 1.290 H* Total Protein Albumin HDL Cholesterol Urine Appearance Urine Protein Urine Ketones Urine Blood Ur Leukocyte Esterase Urine RBC Urine WBC Urine Mucus 09/17/24 09/17/24 09/18/24 05:19 17:30 05:41 WBC RBC Hgb Hct MCV MCH Immature Gran # Neutrophils # Neutrophils # (Manual) Monocytes # Monocytes # (Manual) Eosinophils # APTT 34.4 H Potassium Carbon Dioxide BUN 53 H Creatinine 2.23 H Glucose 111 H POC Glucose (mg/dL) Calcium Total Bilirubin AST 58 H ALT 39 H Alkaline Phosphatase Creatine Kinase Troponin I Total Protein Albumin HDL Cholesterol Urine Appearance Cloudy H Urine Protein 1+ H Urine Ketones Trace H Urine Blood Moderate H Ur Leukocyte Esterase Small H Urine RBC >182 H Urine WBC 19 H Urine Mucus Rare H 09/18/24 09/19/24 09/19/24 05:41 07:18 07:18 WBC 17.71 H RBC Hgb Hct MCV 98.6 H MCH 33.0 H Immature Gran # Neutrophils # Neutrophils # (Manual) Monocytes # Monocytes # (Manual) Eosinophils # APTT Potassium 3.1 L Carbon Dioxide BUN 47 H 33 H Creatinine 1.52 H 1.09 H Glucose POC Glucose (mg/dL) Calcium Total Bilirubin AST 44 H ALT 42 H Alkaline Phosphatase Creatine Kinase Troponin I Total Protein Albumin HDL Cholesterol 66.60 H Urine Appearance Urine Protein Urine Ketones Urine Blood Ur Leukocyte Esterase Urine RBC Urine WBC Urine Mucus 09/20/24 09/20/24 09/21/24 05:56 05:56 08:42 WBC 14.15 H 14.41 H RBC Hgb 15.2 H Hct MCV 98.3 H MCH 32.6 H 32.5 H Immature Gran # Neutrophils # Neutrophils # (Manual) Monocytes # Monocytes # (Manual) Eosinophils # APTT Potassium 3.4 L Carbon Dioxide BUN 24 H Creatinine 1.08 H Glucose POC Glucose (mg/dL) Calcium Total Bilirubin AST 37 H ALT 36 H Alkaline Phosphatase Creatine Kinase Troponin I Total Protein 6.0 L Albumin 3.3 L HDL Cholesterol Urine Appearance Urine Protein Urine Ketones Urine Blood Ur Leukocyte Esterase Urine RBC Urine WBC Urine Mucus 09/21/24 08:42 WBC RBC Hgb Hct MCV MCH Immature Gran # Neutrophils # Neutrophils # (Manual) Monocytes # Monocytes # (Manual) Eosinophils # APTT Potassium Carbon Dioxide BUN Creatinine Glucose 102 H POC Glucose (mg/dL) Calcium Total Bilirubin AST 37 H ALT 40 H Alkaline Phosphatase Creatine Kinase Troponin I Total Protein Albumin HDL Cholesterol Urine Appearance Urine Protein Urine Ketones Urine Blood Ur Leukocyte Esterase Urine RBC Urine WBC Urine Mucus Assessment and Plan Assessment: 1. The patient is a 69-year-old female who is being seen for the possibility of transient global amnesia. According to family, as viewed in other progress notes, the patient has a history of dementia. Likely the patient's mental status changes and increasing confusion are secondary to hospitalization/hospital delirium. Transient global amnesia is less likely. There is also a possible component of metabolic encephalopathy in the setting of acute kidney injury, elevated liver enzymes and increased white blood cell count. 2. CT scan of the brain reveals no evidence of acute hemorrhage or infarct. 3. Plan: 1. Would consider outpatient workup for possible dementia and/or treatment, with neurologist 2. The patient is neurologically stable for discharge Time with Patient: Greater than 30 (55 minutes were spent caring for this patient today including, obtaining history, examining the patient, reviewing imaging, chart documentation, labs, placing orders and creating this note)
--- NOTE | 2024-09-21 14:07 | P.DS ---
Providers Date of admission: 09/16/24 23:25 Expected date of discharge: 09/21/24 Attending physician: Indigo Ruiz MD Consults: 09/16/24 23:21 Consult Physician Stat Consulting Provider: Nathan Baum Consult Reason/Comments: NSTEMI Do you want consulting provider notified?: Yes, Notify in am Consult Physician Stat Consulting Provider: Daniele Carlos Consult Reason/Comments: KELLI Do you want consulting provider notified?: Yes, Notify in am 09/17/24 07:09 Consult Physician Routine Consulting Provider: Ramon Edgar Consult Reason/Comments: obstructive stone Do you want consulting provider notified?: Yes 09/20/24 16:17 Consult Physician Routine Consulting Provider: Ethan Maynard Consult Reason/Comments: AMS, global transient amnesia. Do you want consulting provider notified?: Yes Primary care physician: [facility] Course: Discharge Diagnosis: NSTEMI. Patient discharged home aspirin 81 mg daily, Plavix 75 mg daily, atorvastatin 80 mg nightly, amlodipine 10 mg daily, Zetia 10 mg daily, and metoprolol succinate 150 mg daily. Troponins are trended resulting at 1.700, 1.690, and 1.290. Echocardiogram revealed a reduced EF of 40 to 45% with moderate concentric LVH and anteroapical septal hypokinesia with mild cavitary gradient stating consider apical ballooning syndrome, mild mitral and tricuspid regurgitation and trivial to small pericardial effusion. Patient was initially maintained on heparin infusion x 2 days and cleared by cardiology for outpatient follow-up for ischemic workup once ureteral stent has been removed. Obstructive left ureteral stone with left-sided hydronephrosis and hydroureter. Urology following, took patient for cystoscopy with stent placement 09/18/2024. Urine culture negative and blood culture showing no growth to date. Patient received 3-day course of IV antibiotics with Rocephin. Acute kidney injury. Resolved. Patient was followed closely by database engineer. KELLI secondary to obstructive left ureteral stone with hydronephrosis. Creatinine elevated as high as 2.23 and currently 0.9 on discharge. Altered mental status/delirium, transient global amnesia vs hospital delerium. Discontinued opioid pain medication. CT brain was completed and was negative for acute intracranial process as showing chronic appearing periventricular white matter ischemic changes with atrophy. Patient was evaluated by neurology clearing patient from neurological perspective for discharge recommending consideration of outpatient workup by neurologist for evaluation for possibility of dementia. Hypertension. Continue medication regimen amlodipine 10 mg nightly and metoprolol succinate 150 mg daily. Hyperlipidemia. Continue medication regimen with atorvastatin 80 mg nightly and Zetia 10 mg daily. Peripheral arterial disease. Continue medication regimen with Aspirin 81 mg daily, Plavix 75 mg daily, atorvastatin 80 mg nightly, Leukocytosis. Improved. Hypercalcemia. Resolved with IV fluid hydration Transaminitis, improved. Liver profile showing continued elevated but stable liver function on discharge with total bili of 1.1, AST of 37, ALT of 40, and alkaline phosphatase of 87. COPD, not in acute exacerbation Nicotine dependence. Recommend smoking cessation. Continue nicotine patch 21 mg daily. Hospital course: Patient is a very pleasant 69-year-old female with a past medical history of COPD and continued nicotine dependence, hypertension, and peripheral arterial disease. She presented to the emergency department with a chief complaint of chest pain x 4 days accompanied by nausea, vomiting, and shortness of breath. Upon arrival to our facility, patient underwent evaluation in the emergency department. Vital signs upon arrival show blood pressure 137/104, heart rate 84, respiratory rate 18, temp 97.2 F, and SpO2 of 97% on room air. EKG completed showing sinus tachycardia at 101 bpm with no significant T wave or ST abnormality showing no signs of acute ischemia upon personal review and interpretation. Chest x-ray showing small right pleural effusion and hyperinflation with flattening of the diaphragm consistent with COPD. Labs completed and reviewed. CBC showing leukocytosis with WBC count of 26.60 and elevated hemoglobin of 18.9. Coagulation profile normal findings. BMP showing hypocarbia with bicarb of 20, elevated anion gap of 20, and acute kidney injury with BUN of 41, creatinine of 2.12, GFR of 23. Blood glucose was 132. Lactic acid was 1.3. Calcium was elevated at 11.1. Magnesium 2.2. Liver profile showing hyperbilirubinemia with transaminitis with total bili of 1.6, AST of 75, ALT of 40, and alkaline phosphatase of 133. Creatinine kinase also elevated at 439. Troponin elevated at 1.700. Influenza A, influenza B, RSV, and COVID PCR were negative. CT abdomen and pelvis without contrast showing a 1.2 cm obstructing distal left ureteral stone within the left hemipelvis and additional smaller stones within the ureter, moderate prominent left hydronephrosis and hydroureter, and multiple bilateral nonobstructing renal stones. Patient was started on low intensity heparin infusion for treatment of NSTEMI and admitted under our services with consultation to nephrology, urology, and cardiology. Tr oponins are trended resulting at 1.700, 1.690, and 1.290. Echocardiogram revealed a reduced EF of 40 to 45% with moderate concentric LVH and anteroapical septal hypokinesia with mild cavitary gradient stating consider apical ballooning syndrome, mild mitral and tricuspid regurgitation and trivial to small pericardial effusion. Cardiology evaluated, Heparin infusion was discontinued and patient cleared from cardiology perspective to undergo cystoscopy with stent placement. Lime Spreader recommending patient follow-up outpatient after discharge with Dr. Baum for outpatient ischemic workup. Urology following, took patient for cystoscopy with stent placement 09/18/2024. Urine culture negative and blood culture showing no growth to date. Patient received 3-day course of IV antibiotics with Rocephin. During hospitalization patient had increasing confusion. Initially suspected secondary to opioid use worsened after anesthesia. Patient has shown improvement since discontinuation of opioids but continues to have time period of memory loss reporting that she cannot remember events that have occurred over the past 3 to 6 months including the of her father. CT brain was completedand was negative for acute intracranial process as showing chronic appearing periventricular white matter ischemic changes with atrophy. Patient was evaluated by neurology clearing patient from neurological perspective for discharge recommending consideration of outpatient workup by neurologist for evaluation for possibility of dementia. Patient has been cleared by cardiology, urology, nephrology, and neurology. She is medically optimized for discharge at this time. Prescription sent for aspirin, atorvastatin, Zetia, Plavix, metoprolol, and nicotine patch. Patient will need to follow-up outpatient with PCP in 1-2 urologist in 2 weeks, urologist in 1 week, and recommend following up with neurologist in 2 weeks. Physical exam: Vital signs reviewed and stable. General: Nontoxic, no distress and appears stated age. Derm: Skin warm and dry, normal coloration for ethnicity. Head: Atraumatic, normocephalic and symmetric. Eyes: EOM's intact, no lid lag, and anicteric sclera Mouth: no lip lesions, mucus membranes moist Cardiovascular: regular rate and rhythm with normal S1S2, systolic murmur, positive posterior tibial pulses bilaterally, and cap refill < 2 seconds. Lungs: Respirations even, regular, and unlabored on room air. Lungs CTA bilaterally, no rhonchi, no rales, no wheezing, and no accessory muscle usage. Abdominal: soft, nontender to palpation, no guarding, no appreciable organomegaly Ext: ROM intact. No gross muscle atrophy, no edema, no contractures Neuro: Speech clear, face symmetrical and CN II-XII grossly intact with no noted focal neuro deficits Psych: Alert and oriented to person place, time and situation. Continues to have memory loss over events occurring over the past 3 to 6 months. A total of 38 minutes of time were spent preparing this complex discharge summary. Pt was discharged on 09/21/24 at 1:51 PM. Patient was seen independently by Nurse Practitioner. This document was prepared using [employer] dictation software. Please allow for errors in special distribution clerk while rare they do occur. Alejandro Ng NP rendered care for this patient independently, reviewed the findings and plan as documented in the note above. I did not physically speak with or examine the patient on this date. Patient Condition at Discharge: Stable Plan - Discharge Summary Discharge Rx Participant: No New Discharge Prescriptions: New Aspirin 81 mg PO DAILY 30 Days #30 tab Atorvastatin [Lipitor] 80 mg PO HS 30 Days #30 tab Ezetimibe [Zetia] 10 mg PO DAILY 30 Days #30 tab Nicotine 21Mg/24Hr Patch [Habitrol] 1 patch TRANSDERM DAILY 30 Days #30 patch Clopidogrel [Plavix] 75 mg PO DAILY 30 Days #30 tab Metoprolol Succinate (ER) [Toprol XL] 150 mg PO DAILY 30 Days #30 tab Continue amLODIPine BESYLATE/BENAZEPRIL [Lotrel 10-20 MG] 1 cap PO DAILY Discontinued Metoprolol Succinate (ER) [Toprol Xl] 100 mg PO DAILY Discharge Medication List amLODIPine BESYLATE/BENAZEPRIL [Lotrel 10-20 MG] 1 cap PO DAILY 08/22/16 [History] Aspirin 81 mg PO DAILY 30 Days #30 tab 09/21/24 [Rx] Atorvastatin [Lipitor] 80 mg PO HS 30 Days #30 tab 09/21/24 [Rx] Clopidogrel [Plavix] 75 mg PO DAILY 30 Days #30 tab 09/21/24 [Rx] Ezetimibe [Zetia] 10 mg PO DAILY 30 Days #30 tab 09/21/24 [Rx] Metoprolol Succinate (ER) [Toprol XL] 150 mg PO DAILY 30 Days #30 tab 09/21/24 [Rx] Nicotine 21Mg/24Hr Patch [Habitrol] 1 patch TRANSDERM DAILY 30 Days #30 patch 09/21/24 [Rx] Follow up Appointment(s)/Referral(s): Brandon Lance MD [Primary Care Provider] - 1-2 days Nathan Baum MD [STAFF PHYSICIAN] - 2 Weeks Frantz Pablo MD [STAFF PHYSICIAN] - 1 Week Haven Nguyen MD [REFERRING] - 2 Weeks Patient Instructions/Handouts: Heart Attack (DC), Transient Global Amnesia (GEN), Ureteral Stent Placement (DC) Activity/Diet/Wound Care/Special Instructions: Activity: As tolerated. Take breaks as needed. Diet: Heart healthy and carb consistent diet. Avoid salts, or foods with hidden salts such as canned or boxed foods and frozen dinners. Extra salt makes your heart work harder and traps the fluid in your body for longer. Special Instructions: Take all of your medications as directed and remember to keep all of your doctor's appointments and follow-up as recommended. Altered mental status/delirium is suspected to be transient global amnesia vs hospital delerium. Avoid opioid pain medication. CT brain was completed and was negative for acute intracranial process. You were evaluated by neurologist whom recommended consideration of further outpatient workup by neurology for evaluation of possible underlying dementia. Thank you for allowing us to participate in your care, it was truly a pleasure having you for our patient!!! Discharge Disposition: HOME SELF-CARE
[2024-09-21 14:43] VITALS: PULSE 62
--- NOTE | 2024-09-24 11:15 | CDI ---
Documentation Clarification Form Date: 09/23/24 From: Marie Lynch Admit Date: 09/16/2024 11:25:00 PM Patient Name: Dom Polanco Visit Number: [id number] Discharge Date: 09/21/2024 03:23:00 PM ATTENTION: The Clinical Documentation Specialists (CDI) and [facility] Coding Staff appreciate your assistance in clarifying documentation. Please respond to the clarification below the line at the bottom and electronically sign. The CDI & [facility] Coding staff will review the response and follow-up if needed. Please note: Queries are made part of the Legal Health Record. If you have any questions, please contact the author of this message via ITS. Doctor/Provider: Nay Cochran, Conflicting documentation has been found in the medical record. As attending physician, please provide clarification. Per cardiology consult Elevated troponins, most likely type II with flat pattern. Per the discharge summary NSTEMI. History/Risk Factors: COPD, ATN, PVD, dementia, hypertension, HLD, obstructive left ureteral stone with left-sided hydronephrosis and hydroureter Clinical Indicators: Troponin I (09/16) 1.700, (09/17) 1.690, 1.290 Treatment: Serial Troponins, IV heparin, TTE Please clarify which diagnosis is most appropriate: [ x ] Type II SD [ ] NSTEMI [ ] Other (please specify) [ ] Unable to determine MTDD
--- NOTE | 2024-10-01 16:48 | CDI ---
Date: 10/01/2024 From: Chantal [email or web address] Email: [email or web address] Admit Date: 09/16/2024 11:25:00 PM Patient Name: Dom Polanco Visit Number: [id number] Discharge Date: 09/21/2024 03:23:00 PM ATTENTION: The Clinical Documentation Specialists (CDI) and [facility] Coding Staff appreciate your assistance in clarifying documentation. Please respond to the clarification below the line at the bottom and electronically sign. The CDI & [facility] Coding staff will review the response and follow-up if needed. Please note: Queries are made part of the Legal Health Record. If you have any questions, please contact the author of this message via ITS. Dr. Nay Cochran, Thank you for your response to the Coding Query on 09/29/2024: Type [address] CT. However, additional clarification is requested due to conflicting documentation found in the medical record. Discharge Summary Report (09/21/2024): EKG completed showing sinus tachycardia at 101 bpm with no significant T wave or ST abnormality showing no signs of acute ischemia upon personal review and interpretation Cardiology Progress Note (09/18/2024): Elevated troponins most likely type II with flat pattern History/Risk Factors: 69-year-old female presented to [facility] ED for evaluation due to nausea, vomiting, and shortness of breath. PMH: Hypertension, nicotine dependence (active), peripheral vascular disease, chronic obstructive pulmonary disease, dyslipidemia Clinical indicators: Documentation Location: Electronic Medical Record EKG (09/16/2024): Ventricular Rate: 101 beats per minute. Sinus tachycardia with short AK interval. Left axis deviation. Possible right ventricular conduction delay. Abnormal ECG. Echocardiogram (09/17/2024): Left ventricular ejection fraction is estimated at 40-45%. Moderately increased septal wall thickness. Mildly increased posterior wall thickness. Distal septum and adjoining anteroapical wall appear hypokinetic and there is a mid-cavitary gradient noted. There is moderate concentric LVH. Mild mitral and tricuspid regurgitation. Cannot exclude trivial to small pericardial effusion. Troponin Trend: 09/16/2024 @ 21:12 09/17/2024 @ 00:25 09/17/2024 @ 05:19 1.700 1.690 1.290 Cardiology Progress Note (09/18/2024): o She denies any chest pain at this time but states she had pain yesterday o Elevated troponins most likely type II with flat pattern o Echocardiogram with normal LV size and moderate concentric LVH, anterior apical septal hypokinesia with mid-cavitary gradient. Consider apical ballooning syndrome with concentric LVH. This could be stress-induced but patient will down the line need an ischemic workup completed. Plan to continue medical management for now o Mild mitral and tricuspid regurgitation o Patient is cleared to undergo cystoscopy and stent placement scheduled for today. There are no absolute contraindications o At the time of discharge, patient will follow-up with Dr. Baum and arrangements will be made for outpatient ischemic workup Nephrology Progress Note (09/21/2024): o Acute kidney injury secondary to ATN, further worsened with the use of SHI inhibitor. Possible component of obstructive uropathy o Hypercalcemia secondary to volume contraction. Improved with fluids o Dizziness possibly from hypovolemia o Cardiomyopathy with ejection fraction of 40 to 45% Treatment: Cardiology Consultation Heparin IV Infusion Troponin Trend Aspirin 324mg Oral x 1 Aspirin 81mg Oral Daily Telemetry Monitoring/Cardiac Stepdown Unit Please clarify which diagnosis is most appropriate: [ ] Acute non-ischemic myocardial injury related to Takotsubo syndrome (Acute myocardial infarction has been ruled out) [ x ] Non-CT troponin elevation related to acute kidney injury and dehydration (Acute myocardial infarction has been ruled out) [ ] Type 2 CT due to (please specify underlying cause/etiology) [ ] Unable to determine [ ] Other Condition, please specify MTDD
== END 2024-09-21 15:23 | disposition home or self-care (01) | DRG 660 ==
LOC: EC 19:06 → SUPCPDRO 19:06 → 3SCARD 23:25
PROVIDERS: ADMIT Internal Medicine; ATTEND Internal Medicine
PROC: 0T778DZ Dilation of Left Ureter with Intraluminal Device, Via Natural or Artificial Opening Endoscopic (ICD-10-PCS; principal; 2024-09-18 11:30)
DX: N13.2 Hydronephrosis with renal and ureteral calculous obstruction (principal); F05 Delirium due to known physiological condition; N17.0 Acute kidney failure with tubular necrosis; J44.9 Chronic obstructive pulmonary disease, unspecified; F03.90 Unspecified dementia, unspecified severity, without behavioral disturbance, psychotic disturbance, mood disturbance, and anxiety; I73.9 Peripheral vascular disease, unspecified; I10 Essential (primary) hypertension; G45.4 Transient global amnesia; I42.9 Cardiomyopathy, unspecified; R17 Unspecified jaundice; E78.5 Hyperlipidemia, unspecified; E83.52 Hypercalcemia; E86.1 Hypovolemia; E87.6 Hypokalemia; D72.829 Elevated white blood cell count, unspecified; R31.0 Gross hematuria; R74.01 Elevation of levels of liver transaminase levels; R32 Unspecified urinary incontinence; G89.29 Other chronic pain; M54.9 Dorsalgia, unspecified; R79.89 Other specified abnormal findings of blood chemistry; F17.210 Nicotine dependence, cigarettes, uncomplicated; Z79.82 Long term (current) use of aspirin; Z79.02 Long term (current) use of antithrombotics/antiplatelets; Z79.891 Long term (current) use of opiate analgesic; Z79.899 Other long term (current) drug therapy; Z87.442 Personal history of urinary calculi; Z87.440 Personal history of urinary (tract) infections; Z98.62 Peripheral vascular angioplasty status; Z88.0 Allergy status to penicillin
CPT/HCPCS: 36415; 51798; 70450; 71046; 74176; 80048; 80053; 80061; 81001; 82550; 83036; 83605; 83735; 84100; 84484; 85025; 85027; 85610; 85730; 87040; 87086; 87636; 93005; 93306; 96361; 96365; 96366; 96368; 96375; 99285

== ENCOUNTER → 2024-10-30 | Outpatient (CLI) | payer MEDICARE ==
--- NOTE | 2024-10-30 08:44 | US ---
EXAMINATION TYPE: US carotid duplex BILAT DATE OF EXAM: 10/30/2024 COMPARISON: NONE CLINICAL INDICATION: Female, 69 years old with history of R42 DIZZINESS AND GIDDINESS; Additional History: .... TECHNIQUE: Grayscale, color Doppler and spectral Doppler evaluation of the bilateral carotid systems and vertebral arteries. Indirect Doppler criteria was utilized. FINDINGS: EXAM MEASUREMENTS: RIGHT: Peak Systolic Velocity (PSV) cm/sec ----- Right CCA: 55.3 ----- Right ICA: 78.7 ----- Right ECA: 78.7 ICA/CCA ratio: 1.4 RIGHT: End Diastole cm/sec ----- Right CCA: 13.6 ----- Right ICA: 26.6 ----- Right ECA: 9.8 LEFT: Peak Systolic Velocity (PSV) cm/sec ----- Left CCA: 72.5 ----- Left ICA: 88.1 ----- Left ECA: 93.0 ICA/CCA ratio: 1.2 LEFT: End Diastole cm/sec ----- Left CCA: 21.3 ----- Left ICA: 28.0 ----- Left ECA: 13.4 VERTEBRALS (direction of flow): Right Vertebral: Antegrade Left Vertebral: Antegrade Rhythm: Normal DEVELOPMENT ANALYST NOTES: Bilateral plaque seen within bulbs, NO significant stenosis or elevated velocities seen Color Doppler imaging shows patency with blood flow throughout the carotid artery. Spectral waveforms are within normal limits. IMPRESSION: Right: Less than 50% stenosis of the carotid bifurcation. Left: Less than 50% stenosis of the carotid bifurcation. Criteria for Assigning % of Stenosis / Diameter reduction (Estimation based on the indirect measurements of the internal carotid artery velocities (ICA PSV). 1. Normal (no stenosis)=ICA PSV < 180 cm/s: ratio < 2.0: ICA EDV<40 cm/s. 2. Less than 50% stenosis=ICA PSV < 180 cm/s: ratio < 2.0: ICA EDV<40 cm/s. 3. 50 to 69% stenosis=ICA PSV of 180 to 230 cm/s: ration 2.0 ? 4.0: ICA EDV 40-100 cm/s. PSV 125-180 cm/sec and ICA/CCA PSV Ratio ? 2.0 is also consistent with 50-69% stenosis 4. Greater than 70% stenosis to near occlusion= ICA PSV > 230 cm/s: ratio > 4.0: ICA EDV > 100 cm/s. 5. Near occlusion= ICA PSV velocities may be low or undetectable: variable ratio and ICA EDV. 6. Total occlusion=unable to detect flow. [facility], , 10/30/2024 8:42 AM
== END | disposition home or self-care (01) ==
LOC: RADUSWWP 07:39
PROVIDERS: ATTEND Family Medicine
DX: I65.23 Occlusion and stenosis of bilateral carotid arteries (principal); R42 Dizziness and giddiness
CPT/HCPCS: 93880